=== PATIENT | female | born 1965 | race Caucasian/White ===

== ENCOUNTER 2021-05-01 17:54 | Inpatient (IN) | payer OTHER ==
[2021-05-01] MEDS ORDERED: NITROGLYCERIN SL TABS 0.4 MG TAB SUBLINGUAL PRN (18:07)
[2021-05-01] MEDS ORDERED: HEPARIN SODIUM 1,000 UN/ML (10ML VL) IV ONE (18:09)
[2021-05-01] MEDS ORDERED: HEPARIN SODIUM 1,000 UN/ML (10ML VL) IV PRN (18:09)
--- NOTE | 2021-05-01 18:09 | ED ---
General Adult HPI - General Chief complaint: Cardiac Arrest/CPR Stated complaint: unresponsive Time Seen by Provider: 05/01/21 18:07 Source: EMS Mode of arrival: EMS Limitations: altered mental status - History of Present Illness Initial comments: 55-year-old female presents status post cardiac arrest. Patient had approximately 60 minutes of out of Hospital care. His was a witnessed arrest by family with CPR started. EMS reports a total downtime of about 15 minutes with 2 rounds of epinephrine and 2 external defibrillation. He apparently does have history of pacemaker defibrillator and cardiac disease. No history is initially available other than this. She had return of spontaneous circulation was transported by EMS. She had a gag reflex and therefore nasal airway was placed and she received BVM. She measurable blood pressure. 300 mg of amiodarone had been given prior to arrival. - Related Data Allergies Allergy/AdvReac Type Severity Reaction Status Date / Time No Known Allergies Allergy Verified 05/01/21 18:14 Review of Systems ROS Statement: Those systems with pertinent positive or pertinent negative responses have been documented in the HPI. ROS Other: All systems not noted in ROS Statement are negative. Past Medical History Past Medical History: Atrial Fibrillation Additional Past Medical History / Comment(s): pacemaker, cardiac hx History of Any Multi-Drug Resistant Organisms: None Reported Past Surgical History: Pacemaker Past Psychological History: No Psychological Hx Reported General Exam Limitations: altered mental status General appearance: obtunded, in distress Head exam: Present: atraumatic, normocephalic Eye exam: Present: other (6 mm and sluggish bilaterally) ENT exam: Present: other (Nasal airway) Neck exam: Present: normal inspection. Absent: tenderness Respiratory exam: Present: respiratory distress, rales, accessory muscle use Cardiovascular Exam: Present: normal rhythm, tachycardia GI/Abdominal exam: Present: soft. Absent: distended, tenderness, guarding Extremities exam: Present: calf tenderness, other (Cyanosis.). Absent: pedal edema Neurological exam: Present: other (gag Reflex present, patient does withdrawal to pain in bilateral upper extremities) Skin exam: Present: cyanosis, diaphoretic Course Vital Signs 05/01/21 05/01/21 05/01/21 17:56 18:10 18:19 Pulse Rate 123 H 119 H Respiratory 32 H 14 Rate Blood Pressure 140/76 94/70 O2 Sat by Pulse 70 L 76 L 70 L Oximetry 05/01/21 05/01/21 05/01/21 18:34 18:55 19:19 Pulse Rate 113 H 131 H 135 H Respiratory 16 16 16 Rate Blood Pressure 101/78 150/114 142/112 O2 Sat by Pulse 93 L 97 98 Oximetry 05/01/21 19:40 Pulse Rate 134 H Respiratory 16 Rate Blood Pressure 140/112 O2 Sat by Pulse 98 Oximetry EKG Findings - EKG Comments: EKG Findings:: Paced rhythm rate of 120 CT interval 164, QRS duration 172, QTC 505. Repeat EKG, atrial sensed ventricular paced rhythm rate of 117 CT interval 178 respiration see 585. Procedures - Intubation Sedative: Versed Mg Given: 5 Paralytic: Rocuronium Mg Given: 50 Laryngoscope: Rachel Size: 3 ET Tube Size: 7.5 ET Tube Uncuffed: No Tube Secured Depth (cm): 21 Tube Secured Location: lips Tube Placement Confirmation: visualized tube passing through cords, equal breath sounds bilaterally, no breath sounds over epigastrium, confirmation by capnometry Patient Tolerated Procedure: well Intubation Complications: hypoxia Additional Comments: Patient was hypoxic upon arrival and remained hypoxic during the preintubation, despite high flow oxygen and BVM. Medical Decision Making - Medical Decision Making 55-year-old female presenting status post cardiac arrest. Witnessed out of Hospital last 2000. Patient did have return of spontaneous circulation after approximately 15 minutes of CPR. She received CPR with the adrian device. Upon arrival patient is intubated for hypoxemia patient is in paced rhythm she has a relatively normal blood pressure. I did initiate heparin with concern for pulmonary embolism. There was concern for pulmonary embolism. Negative for PE . She has a normal electrolytes and prolonged downtime with significantly elevated lactic acid. I did cover with antibiotics. Discuss case with Dr. Perez who recommended sodium bicarb drip. I discussed case with Dr. Helms from cardiology, recommends trending troponins, continuing heparin and amiodarone. - Lab Data Result diagrams: 05/01/21 18:15 05/01/21 18:15 Lab Results 05/01/21 05/01/21 05/01/21 Range/Units 18:05 18:10 18:15 WBC 13.7 H (3.8-10.6) k/uL RBC 4.93 (3.80-5.40) m/uL Hgb 14.9 (11.4-16.0) gm/dL Hct 49.0 H (34.0-46.0) % MCV 99.5 (80.0-100.0) fL MCH 30.3 (25.0-35.0) pg MCHC 30.4 L (31.0-37.0) g/dL RDW 12.6 (11.5-15.5) % Plt Count 250 (150-450) k/uL MPV 8.3 Neutrophils % (Manual) 48 % Band Neuts % (Manual) 1 % Lymphocytes % (Manual) 43 % Monocytes % (Manual) 5 % Eosinophils % (Manual) 1 % Metamyelocytes % 2 % Myelocytes % 3 % Neutrophils # (Manual) 6.70 (1.3-7.7) k/uL Lymphocytes # (Manual) 5.89 H (1.0-4.8) k/uL Monocytes # (Manual) 0.69 (0-1.0) k/uL Eosinophils # (Manual) 0.14 (0-0.7) k/uL Metamyelocytes # (Man) 0.27 H (0) k/uL Myelocytes # (Manual) 0.41 H (0) k/uL Nucleated RBCs 0 (0-0) /100 WBC Manual Slide Review Performed Hypochromasia Moderate PT (9.0-12.0) sec INR (<1.2) APTT (22.0-30.0) sec Sample Site ABG pH (7.35-7.45) ABG pCO2 (35-45) mmHg ABG pO2 (83-108) mmHg ABG HCO3 (21-25) mmol/L ABG Total CO2 (19-24) mmol/L ABG O2 Saturation (94-97) % ABG Base Excess mmol/L Neymar Test VBG pH 7.06 L* (7.31-7.41) VBG pCO2 42 (37-51) mmHg VBG HCO3 11 L (24-28) mmol/L FiO2 % Sodium (137-145) mmol/L Potassium (3.5-5.1) mmol/L Chloride (98-107) mmol/L Carbon Dioxide (22-30) mmol/L Anion Gap mmol/L BUN (7-17) mg/dL Creatinine (0.52-1.04) mg/dL Est GFR (CKD-EPI)AfAm (>60 ml/min/1.73 sqM) Est GFR (CKD-EPI)NonAf (>60 ml/min/1.73 sqM) Glucose (74-99) mg/dL POC Glucose (mg/dL) 296 H (75-99) mg/dL POC Glu Seasonal Sales Associate ID [place] Stinson Lactic Ac Sepsis Rflx Plasma Lactic Acid Kory (0.7-2.0) mmol/L Calcium (8.4-10.2) mg/dL Magnesium (1.6-2.3) mg/dL Total Bilirubin (0.2-1.3) mg/dL AST (14-36) U/L ALT (4-34) U/L Alkaline Phosphatase (38-126) U/L Troponin I (0.000-0.034) ng/mL Total Protein (6.3-8.2) g/dL Albumin (3.5-5.0) g/dL 05/01/21 05/01/21 05/01/21 Range/Units 18:15 18:15 18:15 WBC (3.8-10.6) k/uL RBC (3.80-5.40) m/uL Hgb (11.4-16.0) gm/dL Hct (34.0-46.0) % MCV (80.0-100.0) fL MCH (25.0-35.0) pg MCHC (31.0-37.0) g/dL RDW (11.5-15.5) % Plt Count (150-450) k/uL MPV Neutrophils % (Manual) % Band Neuts % (Manual) % Lymphocytes % (Manual) % Monocytes % (Manual) % Eosinophils % (Manual) % Metamyelocytes % % Myelocytes % % Neutrophils # (Manual) (1.3-7.7) k/uL Lymphocytes # (Manual) (1.0-4.8) k/uL Monocytes # (Manual) (0-1.0) k/uL Eosinophils # (Manual) (0-0.7) k/uL Metamyelocytes # (Man) (0) k/uL Myelocytes # (Manual) (0) k/uL Nucleated RBCs (0-0) /100 WBC Manual Slide Review Hypochromasia PT 12.6 H (9.0-12.0) sec INR 1.2 H (<1.2) APTT 31.8 H (22.0-30.0) sec Sample Site ABG pH (7.35-7.45) ABG pCO2 (35-45) mmHg ABG pO2 (83-108) mmHg ABG HCO3 (21-25) mmol/L ABG Total CO2 (19-24) mmol/L ABG O2 Saturation (94-97) % ABG Base Excess mmol/L Neymar Test VBG pH (7.31-7.41) VBG pCO2 (37-51) mmHg VBG HCO3 (24-28) mmol/L FiO2 % Sodium 138 (137-145) mmol/L Potassium 3.6 (3.5-5.1) mmol/L Chloride 106 (98-107) mmol/L Carbon Dioxide 11 L (22-30) mmol/L Anion Gap 21 mmol/L BUN 19 H (7-17) mg/dL Creatinine 0.77 (0.52-1.04) mg/dL Est GFR (CKD-EPI)AfAm >90 (>60 ml/min/1.73 sqM) Est GFR (CKD-EPI)NonAf 86 (>60 ml/min/1.73 sqM) Glucose 390 H (74-99) mg/dL POC Glucose (mg/dL) (75-99) mg/dL POC Glu Seasonal Sales Associate ID Lactic Ac Sepsis Rflx Plasma Lactic Acid Kory (0.7-2.0) mmol/L Calcium 9.4 (8.4-10.2) mg/dL Magnesium 2.6 H (1.6-2.3) mg/dL Total Bilirubin 0.7 (0.2-1.3) mg/dL AST 95 H (14-36) U/L ALT 53 H (4-34) U/L Alkaline Phosphatase 130 H (38-126) U/L Troponin I 0.038 H* (0.000-0.034) ng/mL Total Protein 6.6 (6.3-8.2) g/dL Albumin 4.0 (3.5-5.0) g/dL 05/01/21 05/01/21 05/01/21 Range/Units 18:15 18:33 19:33 WBC (3.8-10.6) k/uL RBC (3.80-5.40) m/uL Hgb (11.4-16.0) gm/dL Hct (34.0-46.0) % MCV (80.0-100.0) fL MCH (25.0-35.0) pg MCHC (31.0-37.0) g/dL RDW (11.5-15.5) % Plt Count (150-450) k/uL MPV Neutrophils % (Manual) % Band Neuts % (Manual) % Lymphocytes % (Manual) % Monocytes % (Manual) % Eosinophils % (Manual) % Metamyelocytes % % Myelocytes % % Neutrophils # (Manual) (1.3-7.7) k/uL Lymphocytes # (Manual) (1.0-4.8) k/uL Monocytes # (Manual) (0-1.0) k/uL Eosinophils # (Manual) (0-0.7) k/uL Metamyelocytes # (Man) (0) k/uL Myelocytes # (Manual) (0) k/uL Nucleated RBCs (0-0) /100 WBC Manual Slide Review Hypochromasia PT (9.0-12.0) sec INR (<1.2) APTT (22.0-30.0) sec Sample Site RAD ABG pH 7.16 L* (7.35-7.45) ABG pCO2 49 H (35-45) mmHg ABG pO2 87 (83-108) mmHg ABG HCO3 17 L (21-25) mmol/L ABG Total CO2 19 (19-24) mmol/L ABG O2 Saturation 93.2 L (94-97) % ABG Base Excess -11.3 mmol/L Neymar Test Yes VBG pH (7.31-7.41) VBG pCO2 (37-51) mmHg VBG HCO3 (24-28) mmol/L FiO2 100 % Sodium (137-145) mmol/L Potassium (3.5-5.1) mmol/L Chloride (98-107) mmol/L Carbon Dioxide (22-30) mmol/L Anion Gap mmol/L BUN (7-17) mg/dL Creatinine (0.52-1.04) mg/dL Est GFR (CKD-EPI)AfAm (>60 ml/min/1.73 sqM) Est GFR (CKD-EPI)NonAf (>60 ml/min/1.73 sqM) Glucose (74-99) mg/dL POC Glucose (mg/dL) (75-99) mg/dL POC Glu Seasonal Sales Associate ID Lactic Ac Sepsis Rflx Y Plasma Lactic Acid Kory 9.9 H* (0.7-2.0) mmol/L Calcium (8.4-10.2) mg/dL Magnesium (1.6-2.3) mg/dL Total Bilirubin (0.2-1.3) mg/dL AST (14-36) U/L ALT (4-34) U/L Alkaline Phosphatase (38-126) U/L Troponin I (0.000-0.034) ng/mL Total Protein (6.3-8.2) g/dL Albumin (3.5-5.0) g/dL Critical Care Time Critical Care Time: Yes Total Critical Care Time: 35 Disposition Clinical Impression: Cardiac arrest Disposition: ADMITTED IP TO THIS [facility] Condition: Serious Is patient prescribed a controlled substance at d/c from ED?: No Decision to Admit Reason: Admit from EC Decision Date: 05/01/21 Decision Time: 19:49
[2021-05-01] MEDS ORDERED: HEPARIN SOD,PORK IN 0.45% NACL 25,000 UNIT in 0.45% NACL 1 250ML.BAG IV SCH (18:15)
[2021-05-01 18:19] LABS: VBG PH 7.06 (7.31-7.41)
[2021-05-01 18:20] LABS: HGB 14.9 gm/dL (11.4-16.0); Hypochromasia Moderate; MCH 30.3 pg (25.0-35.0); MCHC 30.4 g/dL (31.0-37.0); MCV 99.5 fL (80.0-100.0); Mean Platelet Volume 8.3; Platelet Count 250 k/uL (150-450); RBC 4.93 m/uL (3.80-5.40); RDW 12.6 % (11.5-15.5); WBC 13.7 k/uL (3.8-10.6)
[2021-05-01 18:25] LABS: Glucose,Whole Blood 296 mg/dL (75-99)
--- NOTE | 2021-05-01 18:27 | XR ---
EXAMINATION TYPE: XR chest 1V portable DATE OF EXAM: 05/01/2021 COMPARISON: None HISTORY: Respiratory failure TECHNIQUE: Single view FINDINGS: There is pulmonary edema. This is seen in the upper and mid lung levin. Endotracheal tube is 9 mm from the tha. There is left axillary pacemaker. Costophrenic angles are clear. IMPRESSION: Moderate upper lobe pulmonary edema. Endotracheal tube is low.
[2021-05-01 18:28] LABS: AST 95 U/L (14-36); African American GFR (CKD) >90 (>60 ml/min/1.73 sqM); Alkaline Phosphatase 130 U/L (38-126); Anion Gap 21 mmol/L; Blood Urea Nitrogen 19 mg/dL (7-17); Calcium 9.4 mg/dL (8.4-10.2); Carbon Dioxide 11 mmol/L (22-30); Chloride 106 mmol/L (98-107); Glucose 390 mg/dL (74-99); Magnesium 2.6 mg/dL (1.6-2.3); Non-African American GFR(CKD) 86 (>60 ml/min/1.73 sqM); Potassium 3.6 mmol/L (3.5-5.1); Sodium 138 mmol/L (137-145); Total Bilirubin 0.7 mg/dL (0.2-1.3); Total Protein 6.6 g/dL (6.3-8.2)
[2021-05-01] MEDS ORDERED: AMIODARONE 360 MG in DEXTROSE 5% IN WATER 200 ML IV ONE ×2 (18:30)
[2021-05-01 18:35] LABS: ALT 53 U/L (4-34)
[2021-05-01 18:39] LABS: INR 1.2 (<1.2); Partial Thromboplastin Time 31.8 sec (22.0-30.0); Prothrombin Time 12.6 sec (9.0-12.0)
[2021-05-01 19:16] LABS: Band Neutrophils % 1 %; Eosinophils # (M) 0.14 k/uL (0-0.7); Lymphocytes # (M) 5.89 k/uL (1.0-4.8); Metamyelocytes # (M) 0.27 k/uL (0); Metamyelocytes % 2 %; Monocytes # (M) 0.69 k/uL (0-1.0); Myelocytes # (M) 0.41 k/uL (0); Myelocytes % 3 %; Neutrophils % (M) 48 %; Nucleated Red Blood Cells 0 /100 WBC (0-0); Total Cells Counted 200
[2021-05-01] MEDS ORDERED: NALOXONE 0.4 MG/ML 1 ML VIAL IV PRN (19:36)
[2021-05-01] MEDS ORDERED: ACETAMINOPHEN SUPPOSITORY 650 MG SUPP RECTAL PRN (19:36)
[2021-05-01 19:37] LABS: ABG Base Excess -11.3 mmol/L; ABG HCO3 17 mmol/L (21-25); ABG PCO2 49 mmHg (35-45); ABG PO2 87 mmHg (83-108); ABG TCO2 19 mmol/L (19-24); Allen Test Performed? Yes
--- NOTE | 2021-05-01 19:37 | CT ---
EXAMINATION TYPE: CT angio chest DATE OF EXAM: 05/01/2021 COMPARISON: None HISTORY: cardiac arrest CT DLP: 506.9 mGycm Automated exposure control for dose reduction was used. CONTRAST: Performed with IV Contrast, patient injected with 100 mL of Isovue 300. There are 3-D post processed images. There is endotracheal tube. There is diffuse pulmonary airspace edema. There is some consolidation an d atelectasis at the posterior lung bases. Heart is enlarged. There is no pericardial effusion. There is nasogastric tube with the tip at the gastroesophageal junction. There is normal contrast opacification of the pulmonary arteries. I see no filling defect. There is n o mediastinal adenopathy. There are no hilar masses. Bony thorax is intact. IMPRESSION: No evidence of pulmonary embolism. Extensive pulmonary infiltrates that could relate to RDS.
[2021-05-01] MEDS ORDERED: cefTRIAXone IN SWFI 1,000 MG/10 ML SYRINGE IVP STA (19:38)
[2021-05-01 19:54] LABS: ABG Oxygen Saturation 93.2 % (94-97); ABG PH 7.16 (7.35-7.45)
[2021-05-01] MEDS: DEXTROSE 5% IN WATER 1,000 ML with SODIUM BICARB (1 MEQ/ML) 150 ML IV SCH (20:20)
[2021-05-01] MEDS ORDERED: MIDAZOLAM 1 MG/ML 5 ML VIAL IV STA (21:28)
[2021-05-01] MEDS ORDERED: MIDAZOLAM 2 MG/2 ML VIAL IVP STA (21:48)
[2021-05-01 22:08] LABS: Glucose,Whole Blood 203 mg/dL (75-99)
[2021-05-01] MEDS ORDERED: SODIUM CHLORIDE 0.9% 1,000 ML IV ONE (22:40)
[2021-05-01] MEDS: AMIODARONE 450 MG in DEXTROSE 5% IN WATER 250 ML IV SCH ×2 (23:52)
[2021-05-02] MEDS: NOREPINEPHRINE 4 MG in SODIUM CHLORIDE 0.9% 250 ML IV SCH ×4 (00:10→17:05)
[2021-05-02 05:28] LABS: ABG Base Excess -7.4 mmol/L; ABG HCO3 18 mmol/L (21-25); ABG PCO2 32 mmHg (35-45); ABG PH 7.36 (7.35-7.45); ABG PO2 338 mmHg (83-108); ABG TCO2 19 mmol/L (19-24); Allen Test Performed? Yes
[2021-05-02 05:31] LABS: ABG Oxygen Saturation 98.5 % (94-97)
[2021-05-02 07:25] LABS: Basophils # (A) 0.1 k/uL (0-0.2); Basophils % (A) 0 %; Eosinophils # (A) 0.1 k/uL (0-0.7); Eosinophils % (A) 0 %; HCT 46.1 % (34.0-46.0); HGB 14.6 gm/dL (11.4-16.0); Lymphocytes # (A) 1.1 k/uL (1.0-4.8); Lymphocytes % (A) 3 %; MCH 30.3 pg (25.0-35.0); MCHC 31.6 g/dL (31.0-37.0); MCV 95.9 fL (80.0-100.0); Mean Platelet Volume 8.5; Monocytes # (A) 1.6 k/uL (0-1.0); Monocytes % (A) 4 %; Neutrophils # (A) 32.7 k/uL (1.3-7.7); Neutrophils % (A) 91 %; Platelet Count 333 k/uL (150-450); RBC 4.81 m/uL (3.80-5.40); RDW 12.9 % (11.5-15.5); WBC 35.8 k/uL (3.8-10.6)
[2021-05-02 07:39] LABS: Albumin 4.4 g/dL (3.5-5.0); Calcium 9.4 mg/dL (8.4-10.2); Phosphorus 3.7 mg/dL (2.5-4.5); Potassium 4.5 mmol/L (3.5-5.1); Total Bilirubin 1.1 mg/dL (0.2-1.3); Total Protein 7.2 g/dL (6.3-8.2)
--- NOTE | 2021-05-02 08:23 | XR ---
EXAMINATION TYPE: XR chest 1V portable DATE OF EXAM: 05/02/2021 Comparison: 05/01/2021 Clinical History: 55-year-old female pulm edema Findings: Left anterior chest wall AICD generator with right atrial, right ventricular, and coronary sinus lead s. ET tube is satisfactory. NG tube courses below the diaphragm. Marked interval improvement in the p atient's previous bilateral pulmonary edema. Interstitial densities and patchy retrocardiac opacity r emains. No sizable effusion. Heart upper limits of normal in size. Impression: Significant interval improvement in patient's pulmonary edema. Pulmonary vascular congestion remains along with patchy retrocardiac opacity.
[2021-05-02] MEDS ORDERED: CHLORHEXIDINE GLUCONATE 15 ML CUP MUCOUS MEM SCH (09:00)
[2021-05-02 09:13] LABS: Glucose,Whole Blood 183 mg/dL (75-99)
[2021-05-02] MEDS: INSULIN ASPART (NovoLOG) 100 UNIT/ML VIAL SQ SCH ×4 (09:14→21:42)
[2021-05-02] MEDS: PANTOPRAZOLE 40 MG/10 ML VIAL IV SCH (09:14)
[2021-05-02 09:36] LABS: Amorphous Sediment,Urine Occasional /hpf; Appearance,Urine Cloudy (Clear); Bacteria,Urine Occasional /hpf; Bilirubin,Urine Negative (Negative); Blood,Urine Moderate (Negative); Color,Urine Yellow; Glucose,Urine (UA) 1+ (Negative); Hyaline Casts,Urine 11 /lpf (0-2); Ketones,Urine Negative (Negative); Leukocyte Esterase,Urine Negative (Negative); Mucus,Urine Few /hpf; Nitrite,Urine Negative (Negative); PH, Urine 5.5 (5.0-8.0); Protein,Urine 1+ (Negative); RBC,Urine 46 /hpf (0-5); Squamous Epithelial Cell,Urine 2 /hpf (0-4); Urobilinogen,Urine <2.0 mg/dL (<2.0); WBC,Urine 6 /hpf (0-5)
[2021-05-02 09:58] LABS: Specific Gravity,Urine 1.046 (1.001-1.035)
[2021-05-02] MEDS: HEPARIN SOD,PORK IN 0.45% NACL 25,000 UNIT in 0.45% NACL 1 250ML.BAG IV SCH (10:29)
--- NOTE | 2021-05-02 11:17 | P.CRDCN ---
History of Present Illness History of present illness: HISTORY OF PRESENTING ILLNESS This is a 55 year old female who presented to the hospital via EMS after a witness arrest. CPR was initiated immediately by family. Downtime was 15 minutes with 2 rounds of epineprhine and 2 external defibrillations. According to EMS documentation she was in vfib. She received 300 mg of amiodarone pre-hospital. She was intubated in ER. She is currently maintained on amiodarone infusion and heparin infusion. She was extubated this morning in ICU. Currently maintaining oxygen saturation on nasal cannula. Blood pressure 119/86 heart rate 87. She is complaining of pain in her sternum with any movement. She is still somewhat lethargic and not giving any meaningful history. Her daughter did call and states that her EF is somewhere between 18-25% since 2012. At that time she had a defibrillator placed ([employer]). She follows with a cathode washer at [facility]. DIAGNOSTICS EKG reveals underlying right bundle branch block and ventricular paced. Telemetry tracings indicate paced rhythm. Chest xray on admission revealed moderate upper lobe pulmonary edema, repeat today with interval improvement with some ongoing pulmonary congestion. CTA negative for PE. Laboratory reviewed, WBC 35.8, hemoglobin 14.6, platelets 333, pH 7.36, pCO2 32, pO2 338 and bicarb 13, sodium 140, potassium 4.5, creatinine 0.88, lactic acid on admission 9.9 repeat this morning 4.2, troponin 0.038 and 0.279. Current cardiac medications include Bumex 2 mg and entresto 24/26 mg twice a day. REVIEW OF SYSTEMS At the time of my exam: Unable to obtain accurate review of systems due to altered mental status PHYSICAL EXAMINATION CONSTITUTIONAL: No apparent distress. HEENT: Head is normocephalic. Pupils are equal, round. Sclerae anicteric. Mucous membranes of the mouth are moist. No JVD. No carotid bruit. CHEST EXAMINATION: Lungs are clear to auscultation. Positive chest wall tenderness is noted on palpation or with deep breathing. Diminished bilaterally. HEART EXAMINATION: Regular rate and rhythm. S1, S2 heard. No murmurs, gallops or rub. ABDOMEN: Soft, nontender. Positive bowel sounds. EXTREMITIES: 2+ peripheral pulses, trace lower extremity edema and no calf tenderness. NEUROLOGIC EXAMINATION: Patient is awake and confused. ASSESSMENT Cardiac arrest Hypoxic respiratory failure Leukocytosis Chronic systolic heart failure Possible v-fib arrest PLAN Interrogate defibrillator. Request records from [facility]. Continue PO amiodarone tonight after infusion complete. Continue heparin infusion for now until we can discern the cause of her cardiac arrest. Entresto on hold due to hypotension, on levophed. Echocardiogram has been obtained and will be reviewed. Further recommendations to follow based on clinical course. Thank you kindly for this consultation. Nurse Practitioner note has been reviewed, I agree with a documented findings and plan of care. Patient was seen and examined. Past Medical History Past Medical History: Atrial Fibrillation Additional Past Medical History / Comment(s): pacemaker, cardiac hx Last Myocardial Infarction Date:: 2012 History of Any Multi-Drug Resistant Organisms: None Reported Past Surgical History: Pacemaker Additional Past Surgical History / Comment(s): 2019 Replaced pacemaker Type of Cardiac Device: Permanent Pacemaker Device Placement Date:: n/a Past Psychological History: No Psychological Hx Reported Medications and Allergies Home Medications Medication Instructions Recorded Confirmed Type Bumetanide [BUMEX] 2 mg PO DAILY PRN 05/01/21 05/02/21 History Omeprazole 40 mg PO BID 05/01/21 05/01/21 History Potassium Chloride [Klor-Con 10] 100 meq PO DAILY 05/01/21 05/01/21 History Sacubitril/Valsartan [Entresto 24 1 tab PO BID 05/01/21 05/01/21 History mg-26 mg Tablet] Allergies Allergy/AdvReac Type Severity Reaction Status Date / Time Beta-Blockers Allergy Unknown Verified 05/01/21 21:17 (Beta-Adrenergic Bloc Physical Exam Vitals: Vital Signs Temp Pulse Resp BP BP Pulse Ox 05/02/21 09:30 87 36 H 119/86 93 L 05/02/21 09:15 93 21 106/75 98 05/02/21 09:00 91 26 H 110/78 98 05/02/21 08:45 86 18 95/70 98 05/02/21 08:30 82 18 96/67 99 05/02/21 08:15 83 18 106/75 100 05/02/21 08:00 99.7 F H 93 18 121/77 97 05/02/21 07:45 92 24 96 05/02/21 07:30 86 18 98 05/02/21 07:15 82 24 113/76 96 05/02/21 07:00 83 23 113/80 94 L 05/02/21 06:00 75 18 112/79 97 05/02/21 05:00 75 19 102/70 98 05/02/21 04:00 99.7 F H 76 19 82/56 97 05/02/21 03:00 75 18 94/65 98 05/02/21 02:00 80 27 H 108/71 98 05/02/21 01:00 80 18 89/60 92 L 05/02/21 00:23 74/55 05/02/21 00:00 97.4 F L 84 18 57/37 96 05/01/21 23:38 90 18 89/60 98 05/01/21 23:00 96.5 F L 90 19 81/63 98 05/01/21 22:08 96 16 05/01/21 21:53 99 27 H 100/75 97 05/01/21 21:40 96 16 85/60 94 L 05/01/21 21:20 101.1 F H 05/01/21 21:00 108 H 23 64/52 96 05/01/21 20:30 114 H 20 72/49 87 L 05/01/21 20:00 115 H 24 99/83 87 L 05/01/21 19:59 96.5 F L 95 05/01/21 19:40 134 H 16 140/112 98 05/01/21 19:19 135 H 16 142/112 98 05/01/21 18:55 131 H 16 150/114 97 05/01/21 18:34 113 H 16 101/78 93 L 05/01/21 18:19 119 H 14 94/70 70 L 05/01/21 18:10 76 L 05/01/21 17:56 123 H 32 H 140/76 70 L Intake and Output 05/01/21 05/02/21 05/02/21 22:59 06:59 14:59 Intake Total 7.313 281.156 734.373 Output Total 400 320 137 Balance -392.687 -38.844 597.373 Intake: Intake, IV Titration 7.313 281.156 734.373 Amount Dextrose 5% in Water 1, 100 000 ml @ 50 mls/hr IV . Q23H RAUL with Sodium Bicarb (1 Meq/ml) 150 ml Rx#:[id number] Heparin Sod,Pork in 0.45% 188.981 NaCl 25,000 unit In 0.45 % NaCl 1 250ml.bag @ 18 UNITS/KG/HR 12.655 mls/hr IV .[id number] RAUL Rx#: [id number] Norepinephrine 4 mg In 254.000 376.516 Sodium Chloride 0.9% 250 ml @ 0.05 MCG/KG/MIN 13. 907 mls/hr IV .[id number] RAUL Rx#:[id number] propofoL 1,000 mg In 7.313 27.156 68.876 Empty Bag 1 bag @ Titrate IV .Q0M RAUL Rx#: [id number] Oral 0 Output: Gastric Drainage 300 Urine 320 137 Other 100 Other: Voiding Method Indwelling Catheter Indwelling Catheter Weight 73 kg 73 kg Results 05/02/21 07:00 05/02/21 07:00 Cardiac Enzymes 05/01/21 05/01/21 05/02/21 Range/Units 18:15 18: 07:00 AST 95 H 103 H (14-36) U/L Troponin I 0.038 H* (0.000-0.034) ng/mL 05/02/21 Range/Units 07:00 AST (14-36) U/L Troponin I 0.279 H* (0.000-0.034) ng/mL Coagulation 05/01/21 05/02/21 Range/Units 18:15 07:00 PT 12.6 H (9.0-12.0) sec APTT 31.8 H 104.3 H* (22.0-30.0) sec CBC 05/01/21 05/02/21 Range/Units 18:15 07:00 WBC 13.7 H 35.8 H (3.8-10.6) k/uL RBC 4.93 4.81 (3.80-5.40) m/uL Hgb 14.9 14.6 (11.4-16.0) gm/dL Hct 49.0 H 46.1 H (34.0-46.0) % Plt Count 250 333 (150-450) k/uL Comprehensive Metabolic Panel 05/01/21 05/02/21 Range/Units 18:15 07:00 Sodium 138 140 (137-145) mmol/L Potassium 3.6 4.5 (3.5-5.1) mmol/L Chloride 106 109 H (98-107) mmol/L Carbon Dioxide 11 L 17 L (22-30) mmol/L BUN 19 H 27 H (7-17) mg/dL Creatinine 0.77 0.88 (0.52-1.04) mg/dL Glucose 390 H 233 H (74-99) mg/dL Calcium 9.4 9.4 (8.4-10.2) mg/dL AST 95 H 103 H (14-36) U/L ALT 53 H 59 H (4-34) U/L Alkaline Phosphatase 130 H 124 (38-126) U/L Total Protein 6.6 7.2 (6.3-8.2) g/dL Albumin 4.0 4.4 (3.5-5.0) g/dL Current Medications Generic Name Dose Route Start Last Admin Trade Name Freq PRN Reason Stop Dose Admin Acetaminophen 650 mg 05/01/21 19:36 Acetaminophen Suppository 650 Mg Supp RECTAL Q4HR PRN Fever And/ Or Mild Pain Chlorhexidine Gluconate 15 ml 05/02/21 09:00 05/02/21 08:31 Chlorhexidine Gluconate 15 Ml Cup MUCOUS MEM 15 ml BID RAUL Administration Heparin Sodium (Porcine) 0 unit 05/01/21 18:09 Heparin Sodium 1,000 Un/Ml (10ml Vl) IV PER PROTOCOL PRN Low PTT Protocol Amiodarone HCl 450 mg/ 250 mls @ 16.667 mls/hr 05/02/21 00:30 05/01/21 23:52 Dextrose/Water IV 05/02/21 18:29 0.5 mg/min .Q15H RAUL 16.667 mls/hr Administration Protocol 0.5 MG/MIN Heparin Sodium/Sodium Chloride 250 mls @ 12.655 mls/hr 05/01/21 18:15 05/02/21 09:14 25,000 unit/ Sodium Chloride IV 0 units/kg/hr .[id number] RAUL 0 mls/hr Titration Protocol 18 UNITS/KG/HR Sodium Bicarbonate 150 ml/ 1,150 mls @ 50 mls/hr 05/01/21 19:30 05/01/21 20:20 Dextrose/Water IV 50 mls/hr .Q23H RAUL Administration Propofol 1,000 mg/ IV Solution 100 mls @ 0 mls/hr 05/01/21 19:45 05/02/21 08:47 IV 0 mcg/kg/min .Q0M RAUL 0 mls/hr Titration Protocol Titrate Norepinephrine Bitartrate 4 mg 254 mls @ 13.907 mls/hr 05/02/21 00:00 05/02/21 09:19 / Sodium Chloride IV 0.2 mcg/kg/min .[id number] RAUL 55.626 mls/hr Titration Protocol 0.05 MCG/KG/MIN Insulin Aspart 0 unit 05/02/21 09:00 05/02/21 09:14 Insulin Aspart (Novolog) 100 Unit/Ml Vial SQ 2 unit Q4H RAUL Administration Protocol Naloxone HCl 0.2 mg 05/01/21 19:36 Naloxone 0.4 Mg/Ml 1 Ml Vial IV Q2M PRN Opioid Reversal Nitroglycerin 0.4 mg 05/01/21 18:07 Nitroglycerin Sl Tabs 0.4 Mg Tab SUBLINGUAL Q5M PRN Chest Pain Pantoprazole Sodium 40 mg 05/02/21 09:00 05/02/21 09:14 Pantoprazole 40 Mg/10 Ml Vial IV 40 mg DAILY RAUL Administration Intake and Output 05/01/21 05/02/21 05/02/21 22:59 06:59 14:59 Intake Total 7.313 281.156 734.373 Output Total 400 320 137 Balance -392.687 -38.844 597.373 Intake: Intake, IV Titration 7.313 281.156 734.373 Amount Dextrose 5% in Water 1, 100 000 ml @ 50 mls/hr IV . Q23H RAUL with Sodium Bicarb (1 Meq/ml) 150 ml Rx#:[id number] Heparin Sod,Pork in 0.45% 188.981 NaCl 25,000 unit In 0.45 % NaCl 1 250ml.bag @ 18 UNITS/KG/HR 12.655 mls/hr IV .[id number] RAUL Rx#: [id number] Norepinephrine 4 mg In 254.000 376.516 Sodium Chloride 0.9% 250 ml @ 0.05 MCG/KG/MIN 13. 907 mls/hr IV .[id number] RAUL Rx#:[id number] propofoL 1,000 mg In 7.313 27.156 68.876 Empty Bag 1 bag @ Titrate IV .Q0M [facility] Rx#: [id number] Oral 0 Output: Gastric Drainage 300 Urine 320 137 Other 100 Other: Voiding Method Indwelling Catheter Indwelling Catheter Weight 73 kg 73 kg 05/02/21 07:00 05/02/21 07:00
[2021-05-02] MEDS: ONDANSETRON 4 MG/2 ML VIAL IVP PRN ×2 (11:21→17:03)
--- NOTE | 2021-05-02 11:34 | ECHOF ---
Referral Reason:assess LV function; post status arrest MEASUREMENTS -------- HEIGHT: 160.0 cm WEIGHT: 72.6 kg BP: IVSd: 1.0 cm (0.6 - 1.1) LVIDd: 5.6 cm (3.9 - 5.3) LVPWd: 1.3 cm (0.6 - 1.1) IVSs: 1.3 cm LVIDs: 5.4 cm LVPWs: 1.5 cm MV E Yousif: 0.27 m/s MV DecT: 156 ms MV A Yousif: 0.55 m/s MV E/A Ratio: 0.50 RAP: 5.00 mmHg RVSP: 31.41 mmHg FINDINGS -------- Sinus rhythm. AICD This was a technically adequate study. The left ventricle is mildly dilated. There is mild concentric left ventricular hypertrophy. Ther e is severe global hypokinesis of LV . Overall left ventricular systolic function is severely impai red with, an EF between 20 - 25 %. The right ventricle is normal in size. The left atrial size is normal. The right atrial size is normal. The aortic valve is trileaflet, and appears structurally normal. No aortic stenosis or regurgitation. The mitral valve is normal. Mild mitral regurgitation is present. The tricuspid valve appears structurally normal. Mild tricuspid regurgitation present. Right vent ricular systolic pressure is normal at < 35 mmHg. The pulmonic valve was not well visualized. There is no pulmonic regurgitation present. The aortic root size is normal. There is no pericardial effusion. CONCLUSIONS -------- 1. AICD 2. The left ventricle is mildly dilated. 3. There is mild concentric left ventricular hypertrophy. 4. There is severe global hypokinesis of LV . 5. Overall left ventricular systolic function is severely impaired with, an EF between 20 - 25 %. 6. The aortic valve is trileaflet, and appears structurally normal. No aortic stenosis or regurgitati on. 7. Mild mitral regurgitation is present. 8. Mild tricuspid regurgitation present. 9. There is no pericardial effusion. 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
--- NOTE | 2021-05-02 11:58 | P.CNPUL ---
History of Present Illness Consult date: 05/02/21 Requesting physician: Sebas E Sheet Reason for consult: other (Acute hypoxic respiratory failure and cardiac arrest) Chief complaint: Cardiac arrest History of present illness: This is a 55-year-old female brought in yesterday by EMS, patient is known to have history of chronic atrial fibrillation, cardiomyopathy, AICD placement, history of pacemaker implantation, patient had a witnessed cardiac arrest by family members, CPR was initiated by family, until EMS arrived, she received 2 rounds of epinephrine and 2 external defibrillations. Apparently the patient was in ventricular fibrillation at the time of EMS arrival. She also received 300 mg of amiodarone and she was brought into the ER where in she was immediately intubated upon arrival. Patient was maintained on amiodarone, and s he was also placed on heparin. Patient was kept on mechanical ventilation overnight, and I was asked to see her on consultation. I evaluated the patient this morning, and she remains on mechanical ventilation, assist control rate was 18 tidal volume 500 FiO2 was down to 50%, PEEP was 15. and her ABG showed a pO2 of 338 pCO2 of 32 pH of 7.36. Chest x-ray showed significant improvement compared to last night x-ray, significant improvement in her pulmonary edema is noted. Patient was also noted to be on norepinephrine at 0.2 mcg/kg/m, she is off propofol, remains on heparin and amiodarone during my evaluation. After reviewing the ABG, chest x-ray, and the ventilator settings, I titrated her FiO2 down to 50%, PEEP down to 6, and shortly after went ahead and changed the patient to pressure support mode of mechanical ventilation, with rushes support of 8 and CPAP. Patient seemed to be tolerating this mode of ventilation well, she had decent tidal volumes in the range of 600+, and her rate was in the range of 18. Patient was awake, following all simple instructions, getting extremely agitated with the endotracheal tube and orogastric tube, hence after a short trial of pressure support and CPAP, went ahead and extubated the patient to a nasal cannula. Patient tolerated the extubation quite well while I was at bedside. WBC count this morning is 35.8 hemoglobin is 14.6. PTT is 104, on heparin as per protocol. Electrolytes are normal bicarb is 17 BUN is 27 creatinine 0.88, troponin 0.279. Chest x-ray showed significant interval improvement in patient's pulmonary edema compared to her initial chest x-ray on admission. Review of Systems ROS unobtainable: due to endotracheal tube Past Medical History Past Medical History: Atrial Fibrillation Additional Past Medical History / Comment(s): pacemaker, cardiac hx Last Myocardial Infarction Date:: 2012 History of Any Multi-Drug Resistant Organisms: None Reported Past Surgical History: Pacemaker Additional Past Surgical History / Comment(s): 2019 Replaced pacemaker Type of Cardiac Device: Permanent Pacemaker Device Placement Date:: n/a Past Psychological History: No Psychological Hx Reported Medications and Allergies Home Medications Medication Instructions Recorded Confirmed Type Bumetanide [BUMEX] 2 mg PO DAILY PRN 05/01/21 05/02/21 History Omeprazole 40 mg PO BID 05/01/21 05/01/21 History Potassium Chloride [Klor-Con 10] 100 meq PO DAILY 05/01/21 05/01/21 History Sacubitril/Valsartan [Entresto 24 1 tab PO BID 05/01/21 05/01/21 History mg-26 mg Tablet] Allergies Allergy/AdvReac Type Severity Reaction Status Date / Time Beta-Blockers Allergy Unknown Verified 05/01/21 21:17 (Beta-Adrenergic Bloc Physical Exam Vitals: Vital Signs Temp Pulse Resp BP BP Pulse Ox 05/02/21 11:30 86 34 H 118/68 94 L 05/02/21 11:15 85 35 H 110/69 96 05/02/21 11:00 80 32 H 111/74 95 05/02/21 10:45 80 33 H 104/74 93 L 05/02/21 10:30 82 36 H 115/77 94 L 05/02/21 10:15 83 33 H 115/77 95 05/02/21 10:00 83 27 H 115/78 94 L 05/02/21 09:45 84 27 H 110/73 92 L 05/02/21 09:30 87 36 H 119/86 93 L 05/02/21 09:15 93 21 106/75 98 05/02/21 09:00 91 26 H 110/78 98 05/02/21 08:45 86 18 95/70 98 05/02/21 08:30 82 18 96/67 99 05/02/21 08:15 83 18 106/75 100 05/02/21 08:00 99.7 F H 93 18 121/77 97 05/02/21 07:45 92 24 96 05/02/21 07:30 86 18 98 05/02/21 07:15 82 24 113/76 96 05/02/21 07:00 83 23 113/80 94 L 05/02/21 06:00 75 18 112/79 97 05/02/21 05:00 75 19 102/70 98 05/02/21 04:00 99.7 F H 76 19 82/56 97 05/02/21 03:00 75 18 94/65 98 05/02/21 02:00 80 27 H 108/71 98 05/02/21 01:00 80 18 89/60 92 L 05/02/21 00:23 74/55 05/02/21 00:00 97.4 F L 84 18 57/37 96 05/01/21 23:38 90 18 89/60 98 05/01/21 23:00 96.5 F L 90 19 81/63 98 05/01/21 22:08 96 16 05/01/21 21:53 99 27 H 100/75 97 05/01/21 21:40 96 16 85/60 94 L 05/01/21 21:20 101.1 F H 05/01/21 21:00 108 H 23 64/52 96 05/01/21 20:30 114 H 20 72/49 87 L 05/01/21 20:00 115 H 24 99/83 87 L 05/01/21 19:59 96.5 F L 95 05/01/21 19:40 134 H 16 140/112 98 05/01/21 19:19 135 H 16 142/112 98 05/01/21 18:55 131 H 16 150/114 97 05/01/21 18:34 113 H 16 101/78 93 L 05/01/21 18:19 119 H 14 94/70 70 L 05/01/21 18:10 76 L 05/01/21 17:56 123 H 32 H 140/76 70 L Intake and Output 05/01/21 05/02/21 05/02/21 22:59 06:59 14:59 Intake Total 7.313 281.156 925.842 Output Total 400 320 287 Balance -392.687 -38.844 638.842 Intake: Intake, IV Titration 7.313 281.156 925.842 Amount Dextrose 5% in Water 1, 200 000 ml @ 50 mls/hr IV . Q23H RAUL with Sodium Bicarb (1 Meq/ml) 150 ml Rx#:[id number] Heparin Sod,Pork in 0.45% 2.19 NaCl 25,000 unit In 0.45 % NaCl 1 250ml.bag @ 12 UNITS/KG/HR 8.76 mls/hr IV .Q24H RAUL Rx#: [id number] Heparin Sod,Pork in 0.45% 188.981 NaCl 25,000 unit In 0.45 % NaCl 1 250ml.bag @ 18 UNITS/KG/HR 12.655 mls/hr IV .[id number] RAUL Rx#: [id number] Norepinephrine 4 mg In 254.000 465.795 Sodium Chloride 0.9% 250 ml @ 0.05 MCG/KG/MIN 13. 907 mls/hr IV .[id number] RAUL Rx#:[id number] propofoL 1,000 mg In 7.313 27.156 68.876 Empty Bag 1 bag @ Titrate IV .Q0M [facility] [place] Rx#: [id number] Oral 0 Output: Gastric Drainage 300 Urine 320 287 Other 100 Other: Voiding Method Indwelling Catheter Indwelling Catheter Weight 73 kg 73 kg 73 kg Physical Exam: Revealed a 55-year-old female in no distress, intubated and mechanically ventilated, seems to be quite agitated with the endotracheal tube and orogastric tube. Head: Atraumatic, normocephalic. HEENT:[Neck is supple.] [No neck masses.] [No thyromegaly.] [No JVD.] Moist mucous membranes. Chest: [Symmetrical chest expansion, diminished breath sounds at the bases no crackles or rhonchi or wheezes.] Cardiac Exam: [Normal S1 and S2, no S3 gallop, no murmur.] Abdomen: [Soft, nontender, no megaly, no rebound, no guarding, normal bowel sounds.] Extremities: [No clubbing, trace of bipedal edema, no cyanosis.] Neurological Exam: [No focal neurologic deficit.] Alert and oriented 3, follows all simple instructions. Musculoskeletal: No deformities noted limitation range of motion. Psychiatric: Normal mood, affect, seems to comprehend all questions and follows instructions. Results - Laboratory Findings CBC and BMP: 08/04/21 07:00 05/02/21 07:00 ABG ABG pH 7.36 (7.35-7.45) 05/02/21 05:25 ABG pCO2 32 mmHg (35-45) L 05/02/21 05:25 ABG pO2 338 mmHg (83-108) H 05/02/21 05:25 ABG O2 Saturation 98.5 % (94-97) H 05/02/21 05:25 PT/INR, D-dimer PT 12.6 sec (9.0-12.0) H 05/01/21 18:15 INR 1.2 (<1.2) H 05/01/21 18:15 Abnormal lab findings: Abnormal Labs 05/01/21 05/01/21 05/01/21 18:05 18:10 18:15 WBC 13.7 H Hct 49.0 H MCHC 30.4 L Neutrophils # Lymphocytes # (Manual) 5.89 H Monocytes # Metamyelocytes # (Man) 0.27 H Myelocytes # (Manual) 0.41 H PT INR APTT ABG pH ABG pCO2 ABG pO2 ABG HCO3 ABG O2 Saturation VBG pH 7.06 L* VBG HCO3 11 L Chloride Carbon Dioxide BUN Glucose POC Glucose (mg/dL) 296 H Plasma Lactic Acid Kory Magnesium AST ALT Alkaline Phosphatase Troponin I Urine Appearance Ur Specific Mckenna Urine Protein Urine Glucose (UA) Urine Blood Urine RBC Urine WBC Amorphous Sediment Urine Bacteria Hyaline Casts Urine Mucus 05/01/21 05/01/21 05/01/21 18:15 18:15 18:15 WBC Hct MCHC Neutrophils # Lymphocytes # (Manual) Monocytes # Metamyelocytes # (Man) Myelocytes # (Manual) PT 12.6 H INR 1.2 H APTT 31.8 H ABG pH ABG pCO2 ABG pO2 ABG HCO3 ABG O2 Saturation VBG pH VBG HCO3 Chloride Carbon Dioxide 11 L BUN 19 H Glucose 390 H POC Glucose (mg/dL) Plasma Lactic Acid Kory Magnesium 2.6 H AST 95 H ALT 53 H Alkaline Phosphatase 130 H Troponin I 0.038 H* Urine Appearance Ur Specific Mckenna Urine Protein Urine Glucose (UA) Urine Blood Urine RBC Urine WBC Amorphous Sediment Urine Bacteria Hyaline Casts Urine Mucus 05/01/21 05/01/21 05/01/21 18:15 19:33 20:41 WBC Hct MCHC Neutrophils # Lymphocytes # (Manual) Monocytes # Metamyelocytes # (Man) Myelocytes # (Manual) PT INR APTT ABG pH 7.16 L* ABG pCO2 49 H ABG pO2 ABG HCO3 17 L ABG O2 Saturation 93.2 L VBG pH VBG HCO3 Chloride Carbon Dioxide BUN Glucose POC Glucose (mg/dL) Plasma Lactic Acid Kory 9.9 H* 4.4 H* Magnesium AST ALT Alkaline Phosphatase Troponin I Urine Appearance Ur Specific Mckenna Urine Protein Urine Glucose (UA) Urine Blood Urine RBC Urine WBC Amorphous Sediment Urine Bacteria Hyaline Casts Urine Mucus 05/01/21 05/02/21 05/02/21 22:07 00:15 03:24 WBC Hct MCHC Neutrophils # Lymphocytes # (Manual) Monocytes # Metamyelocytes # (Man) Myelocytes # (Manual) PT INR APTT ABG pH ABG pCO2 ABG pO2 ABG HCO3 ABG O2 Saturation VBG pH VBG HCO3 Chloride Carbon Dioxide BUN Glucose POC Glucose (mg/dL) 203 H Plasma Lactic Acid Kory 4.0 H* 3.8 H* Magnesium AST ALT Alkaline Phosphatase Troponin I Urine Appearance Ur Specific Mckenna Urine Protein Urine Glucose (UA) Urine Blood Urine RBC Urine WBC Amorphous Sediment Urine Bacteria Hyaline Casts Urine Mucus 05/02/21 05/02/21 05/02/21 05:25 07:00 07:00 WBC 35.8 H Hct 46.1 H MCHC Neutrophils # 32.7 H Lymphocytes # (Manual) Monocytes # 1.6 H Metamyelocytes # (Man) Myelocytes # (Manual) PT INR APTT 104.3 H* ABG pH ABG pCO2 32 L ABG pO2 338 H ABG HCO3 18 L ABG O2 Saturation 98.5 H VBG pH VBG HCO3 Chloride Carbon Dioxide BUN Glucose POC Glucose (mg/dL) Plasma Lactic Acid Kory Magnesium AST ALT Alkaline Phosphatase Troponin I Urine Appearance Ur Specific Mckenna Urine Protein Urine Glucose (UA) Urine Blood Urine RBC Urine WBC Amorphous Sediment Urine Bacteria Hyaline Casts Urine Mucus 05/02/21 05/02/21 05/02/21 07:00 07:00 07:00 WBC Hct MCHC Neutrophils # Lymphocytes # (Manual) Monocytes # Metamyelocytes # (Man) Myelocytes # (Manual) PT INR APTT ABG pH ABG pCO2 ABG pO2 ABG HCO3 ABG O2 Saturation VBG pH VBG HCO3 Chloride 109 H Carbon Dioxide 17 L BUN 27 H Glucose 233 H POC Glucose (mg/dL) Plasma Lactic Acid Kory 4.2 H* Magnesium AST 103 H ALT 59 H Alkaline Phosphatase Troponin I 0.279 H* Urine Appearance Ur Specific Mckenna Urine Protein Urine Glucose (UA) Urine Blood Urine RBC Urine WBC Amorphous Sediment Urine Bacteria Hyaline Casts Urine Mucus 05/02/21 05/02/21 09:00 09:09 WBC Hct MCHC Neutrophils # Lymphocytes # (Manual) Monocytes # Metamyelocytes # (Man) Myelocytes # (Manual) PT INR APTT ABG pH ABG pCO2 ABG pO2 ABG HCO3 ABG O2 Saturation VBG pH VBG HCO3 Chloride Carbon Dioxide BUN Glucose POC Glucose (mg/dL) 183 H Plasma Lactic Acid Kory Magnesium AST ALT Alkaline Phosphatase Troponin I Urine Appearance Cloudy H Ur Specific Mckenna 1.046 H Urine Protein 1+ H Urine Glucose (UA) 1+ H Urine Blood Moderate H Urine RBC 46 H Urine WBC 6 H Amorphous Sediment Occasional H Urine Bacteria Occasional H Hyaline Casts 11 H Urine Mucus Few H - Diagnostic Findings Chest x-ray: image reviewed (As noted in HPI.) Assessment and Plan Assessment: Impression: Acute hypoxic respiratory failure secondary to cardiac arrest. Chronic systolic congestive heart failure with LV dysfunction. Possible ventricular fibrillation arrest. Acute pulmonary edema secondary to acute on chronic systolic congestive heart failure Recommendation: Weaning trial was given at bedside, and the patient seemed to tolerate the weaning trial well, hence the patient was extubated while I'm at bedside. Continue amiodarone and heparin. Continue norepinephrine and titrate gradually maintaining a mean arterial pressure above 65. Continue to hold blood pressure medications as long as the patient remains on levo fed. Cardiology to interrogate the defibrillator. We will continue to monitor in the ICU. Continue GI prophylaxis. Prognosis is relatively guarded. And the patient will remain in the ICU Time with Patient: Greater than 30
[2021-05-02 12:02] LABS: Glucose,Whole Blood 138 mg/dL (75-99)
--- NOTE | 2021-05-02 12:31 | P.HPIM ---
History of Present Illness This is a pleasant 55 years old female with past medical history of atrial fibrillation status post pacemaker Patient presents to the emergency room status post cardiac arrest. Records family were performing CPR upon EMS arrival. She was in V. fib and shocked 2, patient was given 2 epinephrine and 300 mg of amiodarone. Pulses were back before she was prepped to the emergency room. On arrival patient was tachycardic at 123, tachypnea catheter due to blood pressure was 140/76 and she was saturating 70%. At that time she opens her eyes to pain and Incomprehensible sounds. A documented [place] is about 15 minutes. Upon arrival patient was intubated because of hypoxia She was placed on heparin drip for suspected pulmonary embolism pulmonary and cardiology were consulted from emergency room. Antibiotics were started and emergency room. Also sodium bicarb drip and amiodarone were started. Labs showing leukocytosis of 35.8, rest of CBC is unremarkable. This morning pH 7.3 which is normal, pCO2 low at 32 and pO2 is 388. Sodium and potassium were normal, creatinine normal. Carbon dioxide is low at 17. Lactic acid is elevated Liver enzymes slightly elevated Also vital showing fever of 101.1. CTA of the chest showed no pulmonary embolism. Extensive pulmonary infiltrates that could lead to RDS EKG showing paced rhythm at 117. QTC is 585 Currently she still on heparin drip, amiodarone drip, sodium bicarbonate drip Review of Systems n/a patient is intubated Past Medical History Past Medical History: Atrial Fibrillation Additional Past Medical History / Comment(s): pacemaker, cardiac hx Last Myocardial Infarction Date:: 2012 History of Any Multi-Drug Resistant Organisms: None Reported Past Surgical History: Pacemaker Additional Past Surgical History / Comment(s): 2019 Replaced pacemaker Type of Cardiac Device: Permanent Pacemaker Device Placement Date:: n/a Past Psychological History: No Psychological Hx Reported Medications and Allergies Home Medications Medication Instructions Recorded Confirmed Type Bumetanide [BUMEX] 2 mg PO DAILY PRN 05/01/21 05/02/21 History Omeprazole 40 mg PO BID 05/01/21 05/01/21 History Potassium Chloride [Klor-Con 10] 100 meq PO DAILY 05/01/21 05/01/21 History Sacubitril/Valsartan [Entresto 24 1 tab PO BID 08/03/21 08/03/21 History mg-26 mg Tablet] Allergies Allergy/AdvReac Type Severity Reaction Status Date / Time Beta-Blockers Allergy Unknown Verified 05/01/21 21:17 (Beta-Adrenergic Bloc Physical Exam Vitals: Vital Signs Temp Pulse Resp BP BP Pulse Ox 05/02/21 08:00 99.7 F H 93 18 121/77 97 05/02/21 07:45 92 24 96 05/02/21 07:30 86 18 98 05/02/21 07:15 82 24 113/76 96 05/02/21 07:00 83 23 113/80 94 L 05/02/21 06:00 75 18 112/79 97 05/02/21 05:00 75 19 102/70 98 05/02/21 04:00 99.7 F H 76 19 82/56 97 05/02/21 03:00 75 18 94/65 98 05/02/21 02:00 80 27 H 108/71 98 05/02/21 01:00 80 18 89/60 92 L 05/02/21 00:23 74/55 05/02/21 00:00 97.4 F L 84 18 57/37 96 05/01/21 23:38 90 18 89/60 98 05/01/21 23:00 96.5 F L 90 19 81/63 98 05/01/21 22:08 96 16 05/01/21 21:53 99 27 H 100/75 97 05/01/21 21:40 96 16 85/60 94 L 05/01/21 21:20 101.1 F H 05/01/21 21:00 108 H 23 64/52 96 05/01/21 20:30 114 H 20 72/49 87 L 05/01/21 20:00 115 H 24 99/83 87 L 05/01/21 19:59 96.5 F L 95 05/01/21 19:40 134 H 16 140/112 98 05/01/21 19:19 135 H 16 142/112 98 05/01/21 18:55 131 H 16 150/114 97 05/01/21 18:34 113 H 16 101/78 93 L 05/01/21 18:19 119 H 14 94/70 70 L 05/01/21 18:10 76 L 05/01/21 17:56 123 H 32 H 140/76 70 L Intake and Output 05/01/21 05/02/21 05/02/21 22:59 06:59 14:59 Intake Total 7.313 281.156 363.313 Output Total 400 320 100 Balance -392.687 -38.844 263.313 Intake: Intake, IV Titration 7.313 281.156 363.313 Amount Dextrose 5% in Water 1, 50 000 ml @ 50 mls/hr IV . Q23H RAUL with Sodium Bicarb (1 Meq/ml) 150 ml Rx#:[id number] Norepinephrine 4 mg In 254.000 254 Sodium Chloride 0.9% 250 ml @ 0.05 MCG/KG/MIN 13. 907 mls/hr IV .[id number] RAUL Rx#:[id number] propofoL 1,000 mg In 7.313 27.156 59.313 Empty Bag 1 bag @ Titrate IV .Q0M RAUL Rx#: [id number] Oral 0 Output: Gastric Drainage 300 Urine 320 100 Other 100 Other: Voiding Method Indwelling Catheter Indwelling Catheter Weight 73 kg 73 kg -GENERAL: The patient is intubated and sedated HEENT: Pupils are round and equally reacting to light. EOMI. No scleral icterus. No conjunctival pallor. Normocephalic, atraumatic. No pharyngeal erythema. No thyromegaly. CARDIOVASCULAR: S1 and S2 present. No murmurs, rubs, or gallops. PULMONARY: Chest is clear to auscultation, no wheezing or crackles. ABDOMEN: Soft, nontender, nondistended, normoactive bowel sounds. No palpable organomegaly. MUSCULOSKELETAL: No joint swelling or deformity. EXTREMITIES: No cyanosis, clubbing, or pedal edema. NEUROLOGICAL: Gross neurological examination did not reveal any focal deficits. SKIN: No rashes. No petechiae Results CBC & Chem 7: 05/02/21 07:00 05/02/21 07:00 Labs: Abnormal Lab Results - Last 24 Hours (Table) 05/01/21 05/01/21 05/01/21 Range/Units 18:05 18:10 18:15 WBC 13.7 H (3.8-10.6) k/uL Hct 49.0 H (34.0-46.0) % MCHC 30.4 L (31.0-37.0) g/dL Lymphocytes # (Manual) 5.89 H (1.0-4.8) k/uL Metamyelocytes # (Man) 0.27 H (0) k/uL Myelocytes # (Manual) 0.41 H (0) k/uL PT (9.0-12.0) sec INR (<1.2) APTT (22.0-30.0) sec ABG pH (7.35-7.45) ABG pCO2 (35-45) mmHg ABG pO2 (83-108) mmHg ABG HCO3 (21-25) mmol/L ABG O2 Saturation (94-97) % VBG pH 7.06 L* (7.31-7.41) VBG HCO3 11 L (24-28) mmol/L Chloride (98-107) mmol/L Carbon Dioxide (22-30) mmol/L BUN (7-17) mg/dL Glucose (74-99) mg/dL POC Glucose (mg/dL) 296 H (75-99) mg/dL Plasma Lactic Acid Kory (0.7-2.0) mmol/L Magnesium (1.6-2.3) mg/dL AST (14-36) U/L ALT (4-34) U/L Alkaline Phosphatase (38-126) U/L Troponin I (0.000-0.034) ng/mL 05/01/21 05/01/21 05/01/21 Range/Units 18:15 18:15 18:15 WBC (3.8-10.6) k/uL Hct (34.0-46.0) % MCHC (31.0-37.0) g/dL Lymphocytes # (Manual) (1.0-4.8) k/uL Metamyelocytes # (Man) (0) k/uL Myelocytes # (Manual) (0) k/uL PT 12.6 H (9.0-12.0) sec INR 1.2 H (<1.2) APTT 31.8 H (22.0-30.0) sec ABG pH (7.35-7.45) ABG pCO2 (35-45) mmHg ABG pO2 (83-108) mmHg ABG HCO3 (21-25) mmol/L ABG O2 Saturation (94-97) % VBG pH (7.31-7.41) VBG HCO3 (24-28) mmol/L Chloride (98-107) mmol/L Carbon Dioxide 11 L (22-30) mmol/L BUN 19 H (7-17) mg/dL Glucose 390 H (74-99) mg/dL POC Glucose (mg/dL) (75-99) mg/dL Plasma Lactic Acid Kory (0.7-2.0) mmol/L Magnesium 2.6 H (1.6-2.3) mg/dL AST 95 H (14-36) U/L ALT 53 H (4-34) U/L Alkaline Phosphatase 130 H (38-126) U/L Troponin I 0.038 H* (0.000-0.034) ng/mL 05/01/21 05/01/21 05/01/21 Range/Units 18:15 19:33 20:41 WBC (3.8-10.6) k/uL Hct (34.0-46.0) % MCHC (31.0-37.0) g/dL Lymphocytes # (Manual) (1.0-4.8) k/uL Metamyelocytes # (Man) (0) k/uL Myelocytes # (Manual) (0) k/uL PT (9.0-12.0) sec INR (<1.2) APTT (22.0-30.0) sec ABG pH 7.16 L* (7.35-7.45) ABG pCO2 49 H (35-45) mmHg ABG pO2 (83-108) mmHg ABG HCO3 17 L (21-25) mmol/L ABG O2 Saturation 93.2 L (94-97) % VBG pH (7.31-7.41) VBG HCO3 (24-28) mmol/L Chloride (98-107) mmol/L Carbon Dioxide (22-30) mmol/L BUN (7-17) mg/dL Glucose (74-99) mg/dL POC Glucose (mg/dL) (75-99) mg/dL Plasma Lactic Acid Kory 9.9 H* 4.4 H* (0.7-2.0) mmol/L Magnesium (1.6-2.3) mg/dL AST (14-36) U/L ALT (4-34) U/L Alkaline Phosphatase (38-126) U/L Troponin I (0.000-0.034) ng/mL 05/01/21 05/02/21 05/02/21 Range/Units 22:07 00:15 03:24 WBC (3.8-10.6) k/uL Hct (34.0-46.0) % MCHC (31.0-37.0) g/dL Lymphocytes # (Manual) (1.0-4.8) k/uL Metamyelocytes # (Man) (0) k/uL Myelocytes # (Manual) (0) k/uL PT (9.0-12.0) sec INR (<1.2) APTT (22.0-30.0) sec ABG pH (7.35-7.45) ABG pCO2 (35-45) mmHg ABG pO2 (83-108) mmHg ABG HCO3 (21-25) mmol/L ABG O2 Saturation (94-97) % VBG pH (7.31-7.41) VBG HCO3 (24-28) mmol/L Chloride (98-107) mmol/L Carbon Dioxide (22-30) mmol/L BUN (7-17) mg/dL Glucose (74-99) mg/dL POC Glucose (mg/dL) 203 H (75-99) mg/dL Plasma Lactic Acid Kory 4.0 H* 3.8 H* (0.7-2.0) mmol/L Magnesium (1.6-2.3) mg/dL AST (14-36) U/L ALT (4-34) U/L Alkaline Phosphatase (38-126) U/L Troponin I (0.000-0.034) ng/mL 05/02/21 05/02/21 05/02/21 Range/Units 05:25 07:00 07:00 WBC 35.8 H (3.8-10.6) k/uL Hct 46.1 H (34.0-46.0) % MCHC (31.0-37.0) g/dL Lymphocytes # (Manual) (1.0-4.8) k/uL Metamyelocytes # (Man) (0) k/uL Myelocytes # (Manual) (0) k/uL PT (9.0-12.0) sec INR (<1.2) APTT (22.0-30.0) sec ABG pH (7.35-7.45) ABG pCO2 32 L (35-45) mmHg ABG pO2 338 H (83-108) mmHg ABG HCO3 18 L (21-25) mmol/L ABG O2 Saturation 98.5 H (94-97) % VBG pH (7.31-7.41) VBG HCO3 (24-28) mmol/L Chloride 109 H (98-107) mmol/L Carbon Dioxide 17 L (22-30) mmol/L BUN 27 H (7-17) mg/dL Glucose 233 H (74-99) mg/dL POC Glucose (mg/dL) (75-99) mg/dL Plasma Lactic Acid Kory (0.7-2.0) mmol/L Magnesium (1.6-2.3) mg/dL AST 103 H (14-36) U/L ALT 59 H (4-34) U/L Alkaline Phosphatase (38-126) U/L Troponin I (0.000-0.034) ng/mL 05/02/21 Range/Units 07:00 WBC (3.8-10.6) k/uL Hct (34.0-46.0) % MCHC (31.0-37.0) g/dL Lymphocytes # (Manual) (1.0-4.8) k/uL Metamyelocytes # (Man) (0) k/uL Myelocytes # (Manual) (0) k/uL PT (9.0-12.0) sec INR (<1.2) APTT (22.0-30.0) sec ABG pH (7.35-7.45) ABG pCO2 (35-45) mmHg ABG pO2 (83-108) mmHg ABG HCO3 (21-25) mmol/L ABG O2 Saturation (94-97) % VBG pH (7.31-7.41) VBG HCO3 (24-28) mmol/L Chloride (98-107) mmol/L Carbon Dioxide (22-30) mmol/L BUN (7-17) mg/dL Glucose (74-99) mg/dL POC Glucose (mg/dL) (75-99) mg/dL Plasma Lactic Acid Kory 4.2 H* (0.7-2.0) mmol/L Magnesium (1.6-2.3) mg/dL AST (14-36) U/L ALT (4-34) U/L Alkaline Phosphatase (38-126) U/L Troponin I (0.000-0.034) ng/mL Thrombosis Risk Factor Assmnt - Choose All That Apply Each Factor Represents 1 point: Age 41-60 years Thrombosis Risk Factor Assessment Total Risk Factor Score: 1 Thrombosis Risk Factor Assessment Level: Low Risk Assessment and Plan Assessment: Status post cardiac arrest, status post CPR prepped arriving to the hospital which was successful in restoring circulation. [place] is documented about 15 minutes Acute hypoxic respiratory failure status post intubation Acute systolic CHF with cardiomyopathy and ejection fraction 20-25% leukocytosis, fever. No obvious source of infection Elevated lactic acid. With acidosis History of atrial fibrillation on pacemaker Plan: This is a pleasant 55 years old female who presents with cardiac arrest, sepsis. continue with heparin, amiodarone and sodium bicarbonate drip Pulmonary consult with help in the vent management Cardiology consult Check urinalysis and throatcalcitonin Labs and medication were reviewed.. Continue same treatment. Continue with symptomatic treatment. Resume home medication. Monitor lytes and vitals. DVT and GI prophylaxis. Further recommendations depends on the clinical course of the patient DVT prophylaxis: heparin GI Prophylaxis: Ppi Prognosis is guarded
[2021-05-02] MEDS: AMIODARONE 450 MG in DEXTROSE 5% IN WATER 250 ML IV SCH ×2 (15:35)
[2021-05-02] MEDS: DEXTROSE 5% IN WATER 1,000 ML with SODIUM BICARB (1 MEQ/ML) 150 ML IV SCH (16:24)
[2021-05-02 16:38] LABS: Glucose,Whole Blood 112 mg/dL (75-99)
[2021-05-02] MEDS: ACETAMINOPHEN TAB 325 MG TAB PO PRN (19:58)
[2021-05-02 21:02] LABS: Glucose,Whole Blood 106 mg/dL (75-99)
[2021-05-02] MEDS: AMIODARONE 200 MG TAB PO SCH (21:47)
[2021-05-02] MEDS: BACITRACIN OINT 1 EACH PACKET TOPICAL SCH (21:47)
[2021-05-03 04:35] LABS: Basophils % (A) 0 %; Eosinophils # (A) 0.1 k/uL (0-0.7); Eosinophils % (A) 1 %; HCT 34.8 % (34.0-46.0); Lymphocytes # (A) 1.1 k/uL (1.0-4.8); Lymphocytes % (A) 6 %; MCHC 33.3 g/dL (31.0-37.0); MCV 93.2 fL (80.0-100.0); Mean Platelet Volume 8.1; Monocytes # (A) 0.9 k/uL (0-1.0); Monocytes % (A) 5 %; Neutrophils # (A) 14.9 k/uL (1.3-7.7); Neutrophils % (A) 87 %; Platelet Count 181 k/uL (150-450); RBC 3.74 m/uL (3.80-5.40); RDW 13.9 % (11.5-15.5); WBC 17.2 k/uL (3.8-10.6)
[2021-05-03 04:39] LABS: HGB 11.6 gm/dL (11.4-16.0)
[2021-05-03 05:00] LABS: ALT 44 U/L (4-34); AST 60 U/L (14-36); African American GFR (CKD) >90 (>60 ml/min/1.73 sqM); Albumin 3.2 g/dL (3.5-5.0); Alkaline Phosphatase 86 U/L (38-126); Anion Gap 4 mmol/L; Blood Urea Nitrogen 13 mg/dL (7-17); Carbon Dioxide 25 mmol/L (22-30); Chloride 106 mmol/L (98-107); Glucose 111 mg/dL (74-99); Non-African American GFR(CKD) >90 (>60 ml/min/1.73 sqM); Potassium 4.1 mmol/L (3.5-5.1); Sodium 135 mmol/L (137-145); Total Bilirubin 1.1 mg/dL (0.2-1.3); Total Protein 5.6 g/dL (6.3-8.2)
[2021-05-03 07:00] LABS: Glucose,Whole Blood 107 mg/dL (75-99)
[2021-05-03] MEDS: INSULIN ASPART (NovoLOG) 100 UNIT/ML VIAL SQ SCH ×4 (07:03→21:00)
[2021-05-03] MEDS: HYDROcodone/APAP 5-325MG 1 EACH TAB PO PRN (08:18)
[2021-05-03] MEDS: AMIODARONE 200 MG TAB PO SCH ×2 (08:18→21:04)
[2021-05-03] MEDS: PANTOPRAZOLE 40 MG/10 ML VIAL IV SCH (08:19)
[2021-05-03] MEDS: BACITRACIN OINT 1 EACH PACKET TOPICAL SCH ×3 (08:20→21:04)
[2021-05-03] MEDS: FUROSEMIDE 10 MG/ML 4 ML VIAL IV SCH ×3 (08:29→23:14)
--- NOTE | 2021-05-03 08:52 | XR ---
EXAMINATION TYPE: XR chest 1V DATE OF EXAM: 05/03/2021 COMPARISON: 05/02/2021 INDICATION: Short of breath TECHNIQUE: Single frontal view of the chest is obtained. FINDINGS: The heart size is enlarged. The pulmonary vasculature is indistinct. Patchy infiltrates in the perihilar and upper lung levin. Findings are worsened over the interval. Patient has been extubated. Nasogastric tube is been removed. Pacemaker overlies left chest IMPRESSION: 1. Worsening patchy perihilar infiltrates. 2. Lines and catheters been removed.
[2021-05-03] MEDS: KETOROLAC 15 MG/ML 1 ML VIAL IVP SCH ×3 (10:52→21:04)
[2021-05-03] MEDS: HEPARIN SOD,PORK IN 0.45% NACL 25,000 UNIT in 0.45% NACL 1 250ML.BAG IV SCH (10:53)
[2021-05-03 11:34] LABS: Glucose,Whole Blood 129 mg/dL (75-99)
[2021-05-03 11:54] LABS: Appearance,Urine Clear (Clear); Bilirubin,Urine Negative (Negative); Blood,Urine Negative (Negative); Color,Urine Light Yellow; Glucose,Urine (UA) Negative (Negative); Ketones,Urine Negative (Negative); Leukocyte Esterase,Urine Negative (Negative); Nitrite,Urine Negative (Negative); Protein,Urine Negative (Negative); Specific Gravity,Urine 1.008 (1.001-1.035); Urobilinogen,Urine <2.0 mg/dL (<2.0)
--- NOTE | 2021-05-03 12:33 | P.PN ---
Subjective Progress Note Date: 05/03/21 Principal diagnosis: Out of hospital cardiac arrest This is a 55-year-old female brought in yesterday by EMS, patient is known to have history of chronic atrial fibrillation, cardiomyopathy, AICD placement, history of pacemaker implantation, patient had a witnessed cardiac arrest by family members, CPR was initiated by family, until EMS arrived, she received 2 rounds of epinephrine and 2 external defibrillations. Apparently the patient was in ventricular fibrillation at the time of EMS arrival. She also received 300 mg of amiodarone and she was brought into the ER where in she was immediately intubated upon arrival. Patient was maintained on amiodarone, and she was also placed on heparin. Patient was kept on mechanical ventilation overnight, and I was asked to see her on consultation. I evaluated the patient this morning, and she remains on mechanical ventilation, assist control rate was 18 tidal volume 500 FiO2 was down to 50%, PEEP was 15. and her ABG showed a pO2 of 338 pCO2 of 32 pH of 7.36. Chest x-ray showed significant improvement compared to last night x-ray, significant improvement in her pulmonary edema is noted. Patient was also noted to be on norepinephrine at 0.2 mcg/kg/m, she is off propofol, remains on heparin and amiodarone during my evaluation. After reviewing the ABG, chest x-ray, and the ventilator settings, I titrated her FiO2 down to 50%, PEEP down to 6, and shortly after went ahead and changed the patient to pressure support mode of mechanical ventilation, with rushes support of 8 and CPAP. Patient seemed to be tolerating this mode of ventilation well, she had decent tidal volumes in the range of 600+, and her rate was in the range of 18. Patient was awake, following all simple instructions, getting extremely agitated with the endotracheal tube and orogastric tube, hence after a short trial of pressure support and CPAP, went ahead and extubated the patient to a nasal cannula. Patient tolerated the extubation quite well while I was at bedside. WBC count this morning is 35.8 hemoglobin is 14.6. PTT is 104, on h eparin as per protocol. Electrolytes are normal bicarb is 17 BUN is 27 creatinine 0.88, troponin 0.279. Chest x-ray showed significant interval improvement in patient's pulmonary edema compared to her initial chest x-ray on admission. Reevaluated today on 05/03/2021, patient remains in the ICU, presently on 5 L nasal cannula with O2 saturation of 94%. Remains on bicarb drip which I have discontinued today since her bicarb level is normal. Chest x-ray shows evidence of pulmonary edema, and I started the patient on Lasix at 40 mg IV push every 8 hours. Patient continues to have paced rhythm. Her echocardiogram showed very poor LV function with ejection fraction of 20-25%. Her IV fluid is now at KVO, patient is asking the nurse to make sure that she is DO NOT RESUSCITATE CODE STATUS, patient feels generally weak tired, and she is very well aware of her condition and her cardiac status. Patient clearly stated that if she is to code again, she would not want to be resuscitated. Continues to have chest wall pain from CPR. And I have recommended Toradol today. WBC count today 17.2 hemoglobin is 11.6. PTT is 44.6 and a quite abnormal renal profile is normal Objective - Vital Signs Vital signs: Vital Signs Temp 98.3 F 05/03/21 12:00 Pulse 69 05/03/21 12:00 Resp 16 05/03/21 12:00 BP 104/49 05/03/21 12:00 Pulse Ox 96 05/03/21 12:00 Intake & Output 05/02/21 05/03/21 05/03/21 18:59 06:59 18:59 Intake Total 1630.827 625 452.637 Output Total 872 810 860 Balance 758.827 -185 -407.363 Weight 73 kg 72 kg Intake: IV 575 180 0.9 80 Dextrose 5% in Water 1, 575 100 000 ml @ 50 mls/hr IV . Q23H RAUL with Sodium Bicarb (1 Meq/ml) 150 ml Rx#:[id number] Intake, IV Titration 1630.827 50 272.637 Amount Amiodarone 450 mg In 250 Dextrose 5% in Water 250 ml @ 0.5 MG/MIN 16.667 mls/hr IV .Q15H RAUL Rx#: [id number] Dextrose 5% in Water 1, 550 50 000 ml @ 50 mls/hr IV . Q23H RAUL with Sodium Bicarb (1 Meq/ml) 150 ml Rx#:[id number] Heparin Sod,Pork in 0.45% 64.97 148.774 NaCl 25,000 unit In 0.45 % NaCl 1 250ml.bag @ 12 UNITS/KG/HR 8.76 mls/hr IV .Q24H RAUL Rx#: [id number] Heparin Sod,Pork in 0.45% 188.981 NaCl 25,000 unit In 0.45 % NaCl 1 250ml.bag @ 18 UNITS/KG/HR 12.655 mls/hr IV .[id number] RAUL Rx#: [id number] Norepinephrine 4 mg In 508.000 123.863 Sodium Chloride 0.9% 250 ml @ 0.05 MCG/KG/MIN 13. 907 mls/hr IV .[id number] RAUL Rx#:[id number] propofoL 1,000 mg In 68.876 Empty Bag 1 bag @ Titrate IV .Q0M RAUL Rx#: [id number] Oral 0 Output: Urine 872 810 860 Other: Voiding Method Indwelling Catheter Indwelling Catheter Indwelling Catheter - Exam Physical Exam: Revealed a 55-year-old female in no distress, on few liters nasal cannula. Frail and generally weak. Head: Atraumatic, normocephalic. HEENT:[Neck is supple.] [No neck masses.] [No thyromegaly.] [No JVD.] Moist mucous membranes. Chest: [Symmetrical chest expansion, fine crackles at the bases. Cardiac Exam: [Normal S1 and S2, no S3 gallop, no murmur.] Abdomen: [Soft, nontender, no megaly, no rebound, no guarding, normal bowel sounds.] Extremities: [No clubbing, no edema no cyanosis. Neurological Exam: [No focal neurologic deficit.] Alert and oriented 3, Musculoskeletal: No deformities noted limitation range of motion. Psychiatric: Depressed mood, blunted affect, normal mental status examination - Labs CBC & Chem 7: 05/03/21 04:01 05/03/21 04:01 Labs: Abnormal Lab Results - Last 24 Hours (Table) 05/02/21 05/02/21 05/02/21 Range/Units 07:00 16:27 17:16 WBC (3.8-10.6) k/uL RBC (3.80-5.40) m/uL Neutrophils # (1.3-7.7) k/uL APTT 46.8 H (22.0-30.0) sec Sodium (137-145) mmol/L Creatinine (0.52-1.04) mg/dL Glucose (74-99) mg/dL POC Glucose (mg/dL) 112 H (75-99) mg/dL AST (14-36) U/L ALT (4-34) U/L Total Protein (6.3-8.2) g/dL Albumin (3.5-5.0) g/dL Procalcitonin 3.14 H (0.02-0.09) ng/mL 05/02/21 05/03/21 05/03/21 Range/Units 21:00 04:01 04:01 WBC 17.2 H (3.8-10.6) k/uL RBC 3.74 L (3.80-5.40) m/uL Neutrophils # 14.9 H (1.3-7.7) k/uL APTT 44.6 H (22.0-30.0) sec Sodium (137-145) mmol/L Creatinine (0.52-1.04) mg/dL Glucose (74-99) mg/dL POC Glucose (mg/dL) 106 H (75-99) mg/dL AST (14-36) U/L ALT (4-34) U/L Total Protein (6.3-8.2) g/dL Albumin (3.5-5.0) g/dL Procalcitonin (0.02-0.09) ng/mL 05/03/21 05/03/21 05/03/21 Range/Units 04:01 06:58 11:33 WBC (3.8-10.6) k/uL RBC (3.80-5.40) m/uL Neutrophils # (1.3-7.7) k/uL APTT (22.0-30.0) sec Sodium 135 L (137-145) mmol/L Creatinine 0.47 L (0.52-1.04) mg/dL Glucose 111 H (74-99) mg/dL POC Glucose (mg/dL) 107 H 129 H (75-99) mg/dL AST 60 H (14-36) U/L ALT 44 H (4-34) U/L Total Protein 5.6 L (6.3-8.2) g/dL Albumin 3.2 L (3.5-5.0) g/dL Procalcitonin (0.02-0.09) ng/mL Assessment and Plan Assessment: Impression: Acute hypoxic respiratory failure secondary to cardiac arrest. Chronic systolic congestive heart failure with LV dysfunction. ventricular fibrillation arrest. Acute pulmonary edema secondary to acute on chronic systolic congestive heart failure Recommendation: Continue to monitor in the ICU. Discontinue sodium bicarb. Start patient on diuretics since her chest x-ray is showing worsening pulmonary edema. Continue cardiac meds as per cardiology on the case including amiodarone. She is now on oral amiodarone. Continue heparin. Continue GI and DVT prophylaxis. Change CODE STATUS to DO NOT RESUSCITATE as per patient's own wishes. We'll continue to follow Repeat chest x-ray in a.m. Time with Patient: Less than 30
[2021-05-03] MEDS: ONDANSETRON 4 MG/2 ML VIAL IVP PRN ×2 (12:53→19:51)
[2021-05-03] MEDS ORDERED: POTASSIUM CHLORIDE ER 20 MEQ TAB.ER PO STA (13:11)
[2021-05-03] MEDS: SPIRONOLACTONE 25 MG TAB PO SCH (14:02)
[2021-05-03 16:33] LABS: Glucose,Whole Blood 123 mg/dL (75-99)
--- NOTE | 2021-05-03 17:28 | P.PN ---
Subjective Progress Note Date: 05/03/21 Principal diagnosis: Cardiac arrest and pulmonary edema This 55-year-old female with history of cardiomyopathy and congestive heart failure and status post ACD implantation was admitted following cardiac arrest and also having prolonged CPR. Patient also had a respiratory failure requiring intubation. Currently she is extubated. She is in ICU seemed to be frail and weak and fatigued. Denies any shortness of breath. Complaints of chest pain which appeared to be compressions. Patient fully understands her cardiac status and wants to be no CODE STATUS at this time. A chest x-ray showed Pulmonary edema. Patient is on diuretics now. Diuresing fairly well. Patient has no further significant cardiac arrhythmias. She is on by mouth amiodarone. We'll also initiating her on Aldactone. We'll restart her beta blockers and also Entresto as tolerated. 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 Q23H RAUL with Sodium Bicarb (1 Meq/ml) 150 ml Rx#:[id number] Intake, IV Titration 1630.827 50 272.637 Amount Amiodarone 450 mg In 250 Dextrose 5% in Water 250 ml @ 0.5 MG/MIN 16.667 mls/hr IV .Q15H RAUL Rx#: [id number] Dextrose 5% in Water 1, 550 50 000 ml @ 50 mls/hr IV . Q23H RAUL with Sodium Bicarb (1 Meq/ml) 150 ml Rx#:[id number] Heparin Sod,Pork in 0.45% 64.97 148.774 NaCl 25,000 unit In 0.45 % NaCl 1 250ml.bag @ 12 UNITS/KG/HR 8.76 mls/hr IV .Q24H RAUL Rx#: [id number] Heparin Sod,Pork in 0.45% 188.981 NaCl 25,000 unit In 0.45 % NaCl 1 250ml.bag @ 18 UNITS/KG/HR 12.655 mls/hr IV .[id number] RAUL Rx#: [id number] Norepinephrine 4 mg In 508.000 123.863 Sodium Chloride 0.9% 250 ml @ 0.05 MCG/KG/MIN 13. 907 mls/hr IV .[id number] RAUL Rx#:[id number] propofoL 1,000 mg In 68.876 Empty Bag 1 bag @ Titrate IV .Q0M RAUL Rx#: [id number] Oral 0 Output: Urine 872 810 980 Other: Voiding Method Indwelling Catheter Indwelling Catheter Indwelling Catheter - Exam GENERAL EXAM: Patient is alert and oriented and appears to be weak and frail HEENT: Normocephalic. Normal reaction of pupils, equal size, normal range of extraocular motion. No erythema or exudates in throat. NECK: No masses, no nuchal rigidity. CHEST: No chest wall deformity. LUNGS: Diminished air exchange HEART: S1 and S2 normal ABDOMEN: No hepatosplenomegaly, normal bowel sounds, no guarding or rigidity. SKIN: No rashes CENTRAL NERVOUS SYSTEM: No focal deficits. EXTREMITIES: No cyanosis, clubbing or edema. - Labs CBC & Chem 7: 05/03/21 04:01 05/03/21 04:01 Labs: Abnormal Lab Results - Last 24 Hours (Table) 05/02/21 05/02/21 05/02/21 Range/Units 07:00 17:16 21:00 WBC (3.8-10.6) k/uL RBC (3.80-5.40) m/uL Neutrophils # (1.3-7.7) k/uL APTT 46.8 H (22.0-30.0) sec Sodium (137-145) mmol/L Creatinine (0.52-1.04) mg/dL Glucose (74-99) mg/dL POC Glucose (mg/dL) 106 H (75-99) mg/dL AST (14-36) U/L ALT (4-34) U/L Total Protein (6.3-8.2) g/dL Albumin (3.5-5.0) g/dL Procalcitonin 3.14 H (0.02-0.09) ng/mL 05/03/21 05/03/21 05/03/21 Range/Units 04:01 04:01 04:01 WBC 17.2 H (3.8-10.6) k/uL RBC 3.74 L (3.80-5.40) m/uL Neutrophils # 14.9 H (1.3-7.7) k/uL APTT 44.6 H (22.0-30.0) sec Sodium 135 L (137-145) mmol/L Creatinine 0.47 L (0.52-1.04) mg/dL Glucose 111 H (74-99) mg/dL POC Glucose (mg/dL) (75-99) mg/dL AST 60 H (14-36) U/L ALT 44 H (4-34) U/L Total Protein 5.6 L (6.3-8.2) g/dL Albumin 3.2 L (3.5-5.0) g/dL Procalcitonin (0.02-0.09) ng/mL 05/03/21 05/03/21 05/03/21 Range/Units 06:58 11:33 16:31 WBC (3.8-10.6) k/uL RBC (3.80-5.40) m/uL Neutrophils # (1.3-7.7) k/uL APTT (22.0-30.0) sec Sodium (137-145) mmol/L Creatinine (0.52-1.04) mg/dL Glucose (74-99) mg/dL POC Glucose (mg/dL) 107 H 129 H 123 H (75-99) mg/dL AST (14-36) U/L ALT (4-34) U/L Total Protein (6.3-8.2) g/dL Albumin (3.5-5.0) g/dL Procalcitonin (0.02-0.09) ng/mL Assessment and Plan (1) Non-ischemic cardiomyopathy Current Visit: Yes Status: Acute Code(s): I42.8 - OTHER CARDIOMYOPATHIES SNOMED Code(s): 90067251 (2) Cardiac arrest Current Visit: Yes Status: Acute Code(s): I46.9 - CARDIAC ARREST, CAUSE UNSPECIFIED SNOMED Code(s): 468665752 (3) History of automatic internal cardiac defibrillator (AICD) Current Visit: Yes Status: Acute Code(s): Z95.810 - PRESENCE OF AUTOMATIC (IMPLANTABLE) CARDIAC DEFIBRILLATOR SNOMED Code(s): 234648703 (4) Pulmonary edema Current Visit: Yes Status: Acute Code(s): J81.1 - CHRONIC PULMONARY EDEMA SNOMED Code(s): 98211352 Plan: Continue current management with the diuretics. We'll resume rest of the medication as tolerated. Patient is also on by mouth amiodarone and waiting input from field crop farm worker . Patient requests no CODE STATUS. Prognosis is poor
[2021-05-03 20:37] LABS: Glucose,Whole Blood 94 mg/dL (75-99)
[2021-05-04] MEDS: KETOROLAC 15 MG/ML 1 ML VIAL IVP SCH ×5 (02:53→21:15)
[2021-05-04] MEDS: ACETAMINOPHEN TAB 325 MG TAB PO PRN (03:00)
[2021-05-04 04:38] LABS: Basophils % (A) 0 %; Eosinophils # (A) 0.1 k/uL (0-0.7); Eosinophils % (A) 1 %; HCT 34.4 % (34.0-46.0); HGB 11.3 gm/dL (11.4-16.0); Lymphocytes # (A) 1.1 k/uL (1.0-4.8); Lymphocytes % (A) 8 %; MCH 30.6 pg (25.0-35.0); MCHC 32.9 g/dL (31.0-37.0); MCV 92.9 fL (80.0-100.0); Mean Platelet Volume 8.1; Monocytes # (A) 0.6 k/uL (0-1.0); Monocytes % (A) 5 %; Neutrophils # (A) 11.3 k/uL (1.3-7.7); Neutrophils % (A) 85 %; Platelet Count 177 k/uL (150-450); RDW 13.5 % (11.5-15.5); WBC 13.3 k/uL (3.8-10.6)
[2021-05-04 04:53] LABS: ALT 42 U/L (4-34); AST 44 U/L (14-36); African American GFR (CKD) >90 (>60 ml/min/1.73 sqM); Albumin 3.2 g/dL (3.5-5.0); Alkaline Phosphatase 82 U/L (38-126); Anion Gap 4 mmol/L; Blood Urea Nitrogen 19 mg/dL (7-17); Calcium 9.1 mg/dL (8.4-10.2); Carbon Dioxide 31 mmol/L (22-30); Chloride 101 mmol/L (98-107); Glucose 118 mg/dL (74-99); Non-African American GFR(CKD) >90 (>60 ml/min/1.73 sqM); Sodium 136 mmol/L (137-145); Total Bilirubin 1.1 mg/dL (0.2-1.3); Total Protein 5.5 g/dL (6.3-8.2)
[2021-05-04] MEDS ORDERED: POTASSIUM CHLORIDE ER 20 MEQ TAB.ER PO STA (05:11)
[2021-05-04 06:54] LABS: Glucose,Whole Blood 115 mg/dL (75-99)
[2021-05-04] MEDS: INSULIN ASPART (NovoLOG) 100 UNIT/ML VIAL SQ SCH ×4 (08:27→21:05)
[2021-05-04] MEDS: HYDROcodone/APAP 5-325MG 1 EACH TAB PO PRN (08:31)
[2021-05-04] MEDS: AMIODARONE 200 MG TAB PO SCH ×2 (08:32→21:14)
[2021-05-04] MEDS: FUROSEMIDE 10 MG/ML 4 ML VIAL IV SCH ×2 (08:32→21:15)
[2021-05-04] MEDS: SPIRONOLACTONE 25 MG TAB PO SCH (08:32)
[2021-05-04] MEDS: PANTOPRAZOLE 40 MG/10 ML VIAL IV SCH (08:32)
--- NOTE | 2021-05-04 08:42 | XR ---
EXAMINATION TYPE: XR chest 1V DATE OF EXAM: 05/04/2021 COMPARISON: 05/03/2021 HISTORY: 55-year-old female shortness of breath TECHNIQUE: Single frontal view of the chest is obtained. FINDINGS: Left anterior chest wall AICD generator with right atrial, right ventricular, and coronary sinus lead s. Heart remains mildly enlarged. Perihilar and interstitial opacities persist but with slight improveme nt. Some silhouetting of the left heart margin could be from a small underlying effusion. IMPRESSION: CHF with improving patchy pulmonary edema.
[2021-05-04] MEDS ORDERED: POTASSIUM CHLORIDE ER 20 MEQ TAB.ER PO SCH (09:00)
[2021-05-04] MEDS: BACITRACIN OINT 1 EACH PACKET TOPICAL SCH ×3 (09:00→21:16)
[2021-05-04] MEDS ORDERED: SPIRONOLACTONE 25 MG TAB PO STA (09:58)
[2021-05-04] MEDS ORDERED: CHLORHEXIDINE GLUCONATE 15 ML CUP MUCOUS MEM PRN (10:27)
[2021-05-04] MEDS: SACUBITRIL/VALSARTAN 24 MG-26 MG TABLET PO SCH ×2 (10:33→21:16)
--- NOTE | 2021-05-04 10:34 | P.PN ---
Subjective This is a pleasant 55 years old female with past medical history of atrial fibrillation status post pacemaker Patient presents to the emergency room status post cardiac arrest. Records family were performing CPR upon EMS arrival. She was in V. fib and shocked 2, patient was given 2 epinephrine and 300 mg of amiodarone. Pulses were back before she was prepped to the emergency room. On arrival patient was tachycardic at 123, tachypnea catheter due to blood pressure was 140/76 and she was saturating 70%. At that time she opens her eyes to pain and Incomprehensible sounds. A documented downtown is about 15 minutes. Upon arrival patient was intubated because of hypoxia She was placed on heparin drip for suspected pulmonary embolism pulmonary and cardiology were consulted from emergency room. Antibiotics were started and emergency room. Also sodium bicarb drip and amiodarone were started. Labs showing leukocytosis of 35.8, rest of CBC is unremarkable. This morning pH 7.3 which is normal, pCO2 low at 32 and pO2 is 388. Sodium and potassium were normal, creatinine normal. Carbon dioxide is low at 17. Lactic acid is elevated Liver enzymes slightly elevated Also vital showing fever of 101.1. CTA of the chest showed no pulmonary embolism. Extensive pulmonary infiltrates that could lead to RDS EKG showing paced rhythm at 117. QTC is 585 Currently she still on heparin drip, amiodarone drip, sodium bicarbonate drip 01/2021 Patient was extubated yesterday. Patient is awake today, not in distress but she has chest wall pain and tenderness from her CPR with some abrasions over the lower part of her sternal bone. She complains from some chest soreness in her mouth and chlorhexidine is ordered No abdominal pain, she has a Londono catheter and we will repeat urinalysis as first sample looks traumatic Levothroid was stopped today. Hemodynamically stable. Leukocytosis trending down to 17.2k Sodium 135, creatinine 0.4. Liver enzymes slightly up. Chest x-ray showing worsening perihilar infiltrates She still on heparin drip. After round atypical from the bedside nurse that Patient wanted to be DO NOT RESUSCITATE and not resuscitated again, and that her son and daughters are aware with her wishes because the patient does not want to go through this again. Patient is not depressed with no suicidal ideations. Objective - Vital Signs Vital signs: Vital Signs Temp 98.5 F 05/03/21 08:00 Pulse 98 05/03/21 10:00 Resp 17 05/03/21 10:00 BP 99/66 05/03/21 10:00 Pulse Ox 94 L 05/03/21 10:00 Intake & Output 05/02/21 05/03/21 05/03/21 18:59 06:59 18:59 Intake Total 1630.827 625 263.863 Output Total 872 810 460 Balance 758.827 -185 -196.137 Weight 73 kg 72 kg Intake: IV 575 140 0.9 40 Dextrose 5% in Water 1, 575 100 000 ml @ 50 mls/hr IV . Q23H RAUL with Sodium Bicarb (1 Meq/ml) 150 ml Rx#:[id number] Intake, IV Titration 1630.827 50 123.863 Amount Amiodarone 450 mg In 250 Dextrose 5% in Water 250 ml @ 0.5 MG/MIN 16.667 mls/hr IV .Q15H RAUL Rx#: [id number] Dextrose 5% in Water 1, 550 50 000 ml @ 50 mls/hr IV . Q23H RAUL with Sodium Bicarb (1 Meq/ml) 150 ml Rx#:[id number] Heparin Sod,Pork in 0.45% 64.97 NaCl 25,000 unit In 0.45 % NaCl 1 250ml.bag @ 12 UNITS/KG/HR 8.76 mls/hr IV .Q24H RAUL Rx#: [id number] Heparin Sod,Pork in 0.45% 188.981 NaCl 25,000 unit In 0.45 % NaCl 1 250ml.bag @ 18 UNITS/KG/HR 12.655 mls/hr IV .[id number] RAUL Rx#: [id number] Norepinephrine 4 mg In 508.000 123.863 Sodium Chloride 0.9% 250 ml @ 0.05 MCG/KG/MIN 13. 907 mls/hr IV .[id number] RAUL Rx#:[id number] propofoL 1,000 mg In 68.876 Empty Bag 1 bag @ Titrate IV .Q0M RAUL Rx#: [id number] Oral 0 Output: Urine 872 810 460 Other: Voiding Method Indwelling Catheter Indwelling Catheter - Exam -GENERAL: The patient is alert and oriented x3, generally weak. HEENT: Pupils are round and equally reacting to light. EOMI. No scleral icterus. No conjunctival pallor. Normocephalic, atraumatic. No pharyngeal erythema. No thyromegaly. CARDIOVASCULAR: S1 and S2 present. No murmurs, rubs, or gallops. PULMONARY: Chest is clear to auscultation, no wheezing or crackles. ABDOMEN: Soft, nontender, nondistended, normoactive bowel sounds. No palpable organomegaly. Londono catheter is in place MUSCULOSKELETAL: No joint swelling or deformity. EXTREMITIES: No cyanosis, clubbing, or pedal edema. NEUROLOGICAL: Gross neurological examination did not reveal any focal deficits. SKIN: No rashes. no petechiae. - Labs CBC & Chem 7: 05/04/21 04:05 05/04/21 04:05 Labs: Abnormal Lab Results - Last 24 Hours (Table) 05/02/21 05/02/21 05/02/21 Range/Units 07:00 10:40 12:00 WBC (3.8-10.6) k/uL RBC (3.80-5.40) m/uL Neutrophils # (1.3-7.7) k/uL APTT (22.0-30.0) sec Sodium (137-145) mmol/L Creatinine (0.52-1.04) mg/dL Glucose (74-99) mg/dL POC Glucose (mg/dL) 138 H (75-99) mg/dL Plasma Lactic Acid Kory 3.1 H* (0.7-2.0) mmol/L AST (14-36) U/L ALT (4-34) U/L Total Protein (6.3-8.2) g/dL Albumin (3.5-5.0) g/dL Procalcitonin 3.14 H (0.02-0.09) ng/mL 05/02/21 05/02/21 05/02/21 Range/Units 16:27 17:16 21:00 WBC (3.8-10.6) k/uL RBC (3.80-5.40) m/uL Neutrophils # (1.3-7.7) k/uL APTT 46.8 H (22.0-30.0) sec Sodium (137-145) mmol/L Creatinine (0.52-1.04) mg/dL Glucose (74-99) mg/dL POC Glucose (mg/dL) 112 H 106 H (75-99) mg/dL Plasma Lactic Acid Kory (0.7-2.0) mmol/L AST (14-36) U/L ALT (4-34) U/L Total Protein (6.3-8.2) g/dL Albumin (3.5-5.0) g/dL Procalcitonin (0.02-0.09) ng/mL 05/03/21 05/03/21 05/03/21 Range/Units 04:01 04:01 04:01 WBC 17.2 H (3.8-10.6) k/uL RBC 3.74 L (3.80-5.40) m/uL Neutrophils # 14.9 H (1.3-7.7) k/uL APTT 44.6 H (22.0-30.0) sec Sodium 135 L (137-145) mmol/L Creatinine 0.47 L (0.52-1.04) mg/dL Glucose 111 H (74-99) mg/dL POC Glucose (mg/dL) (75-99) mg/dL Plasma Lactic Acid Kory (0.7-2.0) mmol/L AST 60 H (14-36) U/L ALT 44 H (4-34) U/L Total Protein 5.6 L (6.3-8.2) g/dL Albumin 3.2 L (3.5-5.0) g/dL Procalcitonin (0.02-0.09) ng/mL 05/03/21 Range/Units 06:58 WBC (3.8-10.6) k/uL RBC (3.80-5.40) m/uL Neutrophils # (1.3-7.7) k/uL APTT (22.0-30.0) sec Sodium (137-145) mmol/L Creatinine (0.52-1.04) mg/dL Glucose (74-99) mg/dL POC Glucose (mg/dL) 107 H (75-99) mg/dL Plasma Lactic Acid Kory (0.7-2.0) mmol/L AST (14-36) U/L ALT (4-34) U/L Total Protein (6.3-8.2) g/dL Albumin (3.5-5.0) g/dL Procalcitonin (0.02-0.09) ng/mL Assessment and Plan Assessment: Status post cardiac arrest, status post CPR prepped arriving to the hospital which was successful in restoring circulation. [place] is documented about 15 minutes Acute hypoxic respiratory failure status post intubation/extubation. Acute systolic CHF with cardiomyopathy and ejection fraction 20-25% leukocytosis, fever. No obvious source of infection. Most likely reactive in trending down Elevated lactic acid. With acidosis History of atrial fibrillation on pacemaker Plan: This is a pleasant 55 years old female who presents with cardiac arrest, sepsis. continue with heparin, amiodarone and sodium bicarbonate drip Pulmonary/critical care consult Cardiology consult Check urinalysis and procalcitonin (pending ) Labs and medication were reviewed.. Continue same treatment. Continue with symptomatic treatment. Resume home medication. Monitor lytes and vitals. DVT and GI prophylaxis. Further recommendations depends on the clinical course of the patient DVT prophylaxis: heparin GI Prophylaxis: Ppi patient's wants to be DO NOT RESUSCITATE Prognosis is guarded
--- NOTE | 2021-05-04 11:21 | P.PN ---
Subjective HISTORY OF PRESENTING ILLNESS This is a 55 year old female who presented to the hospital via EMS after a witness arrest. CPR was initiated immediately by family. Downtime was 15 minutes with 2 rounds of epineprhine and 2 external defibrillations. According to EMS documentation she was in vfib. She received 300 mg of amiodarone pre-hospital. She was intubated in ER. She is currently maintained on amiodarone infusion and heparin infusion. She was extubated this morning in ICU. Currently maintaining oxygen saturation on nasal cannula. Blood pressure 119/86 heart rate 87. She is complaining of pain in her sternum with any movement. She is still somewhat lethargic and not giving any meaningful history. Her daughter did call and states that her EF is somewhere between 18-25% since 2012. At that time she had a defibrillator placed ([email or web address]). She follows with a video surveillance technician at [facility]. 05/04/2021 Pt seen and examined sitting up in bed. She is more alert and talkative today. She continues to have significant sternal pain after CPR. Telemetry has been unremarkable. Awaiting Dr. Helms recommendations. Blood [id number] heart rate 72 afebrile and maintaining oxygen saturation on nasal cannula. Laboratory data reviewed, WBC 13.3, hemoglobin 11.3, platelets 177, sodium 136, potassium 4 creatinine 0.66. Chest x-ray reveals ongoing heart failure with improving patchy pulmonary edema. She continues to be maintained on IV diuretics. PHYSICAL EXAMINATION CONSTITUTIONAL: No apparent distress. HEENT: Head is normocephalic. Pupils are equal, round. Sclerae anicteric. Mucous membranes of the mouth are moist. No JVD. No carotid bruit. CHEST EXAMINATION: Lungs are clear to auscultation. Positive chest wall tenderness is noted on palpation or with deep breathing. Diminished bilaterally. HEART EXAMINATION: Regular rate and rhythm. S1, S2 heard. No murmurs, gallops or rub. EXTREMITIES: 2+ peripheral pulses, trace lower extremity edema and no calf tenderness. ASSESSMENT Cardiac arrest Hypoxic respiratory failure Leukocytosis Chronic systolic heart failure Possible v-fib arrest PLAN We still cannot received any records from [facility], we will request a third time today. Await Dr. Helms opinion and recommendations. Resume entresto today. Follow blood pressure closely. Increase aldactone to 25 mg daily and discontinue potassium supplementation. Further recommendations to follow based on clinical course. Nurse Practitioner note has been reviewed, I agree with a documented findings and plan of care. Patient was seen and examined. Objective - Vital Signs Vital signs: Vital Signs Temp 98.0 F 05/04/21 08:00 Pulse 72 05/04/21 11:00 Resp 17 05/04/21 11:00 BP 110/74 05/04/21 11:00 Pulse Ox 96 05/04/21 11:00 Intake & Output 05/03/21 05/04/21 05/04/21 18:59 06:59 18:59 Intake Total 572.637 442.52 80 Output Total 1360 800 460 Balance -787.363 -357.48 -380 Weight 73.2 kg Intake: IV 300 240 80 0.9 200 240 80 Dextrose 5% in Water 1, 100 000 ml @ 50 mls/hr IV . Q23H RAUL with Sodium Bicarb (1 Meq/ml) 150 ml Rx#:[id number] Intake, IV Titration 272.637 163.52 Amount Heparin Sod,Pork in 0.45% 148.774 163.52 NaCl 25,000 unit In 0.45 % NaCl 1 250ml.bag @ 12 UNITS/KG/HR 8.76 mls/hr IV .Q24H RAUL Rx#: [id number] Norepinephrine 4 mg In 123.863 Sodium Chloride 0.9% 250 ml @ 0.05 MCG/KG/MIN 13. 907 mls/hr IV .[id number] RAUL Rx#:[id number] Oral 39 Output: Urine 1360 800 460 Other: Voiding Method Indwelling Catheter Indwelling Catheter - Labs CBC & Chem 7: 05/04/21 04:05 05/04/21 04:05 Labs: Abnormal Lab Results - Last 24 Hours (Table) 05/03/21 05/03/21 05/04/21 Range/Units 11:33 16:31 04:05 WBC (3.8-10.6) k/uL RBC (3.80-5.40) m/uL Hgb (11.4-16.0) gm/dL Neutrophils # (1.3-7.7) k/uL APTT 38.7 H (22.0-30.0) sec Sodium (137-145) mmol/L Carbon Dioxide (22-30) mmol/L BUN (7-17) mg/dL Glucose (74-99) mg/dL POC Glucose (mg/dL) 129 H 123 H (75-99) mg/dL AST (14-36) U/L ALT (4-34) U/L Total Protein (6.3-8.2) g/dL Albumin (3.5-5.0) g/dL 05/04/21 05/04/21 05/04/21 Range/Units 04:05 04:05 06:52 WBC 13.3 H (3.8-10.6) k/uL RBC 3.70 L (3.80-5.40) m/uL Hgb 11.3 L (11.4-16.0) gm/dL Neutrophils # 11.3 H (1.3-7.7) k/uL APTT (22.0-30.0) sec Sodium 136 L (137-145) mmol/L Carbon Dioxide 31 H (22-30) mmol/L BUN 19 H (7-17) mg/dL Glucose 118 H (74-99) mg/dL POC Glucose (mg/dL) 115 H (75-99) mg/dL AST 44 H (14-36) U/L ALT 42 H (4-34) U/L Total Protein 5.5 L (6.3-8.2) g/dL Albumin 3.2 L (3.5-5.0) g/dL 05/04/21 Range/Units 09:41 WBC (3.8-10.6) k/uL RBC (3.80-5.40) m/uL Hgb (11.4-16.0) gm/dL Neutrophils # (1.3-7.7) k/uL APTT 51.3 H (22.0-30.0) sec Sodium (137-145) mmol/L Carbon Dioxide (22-30) mmol/L BUN (7-17) mg/dL Glucose (74-99) mg/dL POC Glucose (mg/dL) (75-99) mg/dL AST (14-36) U/L ALT (4-34) U/L Total Protein (6.3-8.2) g/dL Albumin (3.5-5.0) g/dL
[2021-05-04] MEDS: AMOXIC-POT CLAV 875-125MG 1 EACH TAB PO SCH ×2 (11:24→21:16)
[2021-05-04] MEDS: ONDANSETRON 4 MG/2 ML VIAL IVP PRN (11:26)
[2021-05-04 11:27] LABS: Glucose,Whole Blood 98 mg/dL (75-99)
--- NOTE | 2021-05-04 11:27 | P.PN ---
Subjective Progress Note Date: 05/04/21 Principal diagnosis: Out of hospital cardiac arrest This is a 55-year-old female brought in yesterday by EMS, patient is known to have history of chronic atrial fibrillation, cardiomyopathy, AICD placement, history of pacemaker implantation, patient had a witnessed cardiac arrest by family members, CPR was initiated by family, until EMS arrived, she received 2 rounds of epinephrine and 2 external defibrillations. Apparently the patient was in ventricular fibrillation at the time of EMS arrival. She also received 300 mg of amiodarone and she was brought into the ER where in she was immediately intubated upon arrival. Patient was maintained on amiodarone, and she was also placed on heparin. Patient was kept on mechanical ventilation overnight, and I was asked to see her on consultation. I evaluated the patient this morning, and she remains on mechanical ventilation, assist control rate was 18 tidal volume 500 FiO2 was down to 50%, PEEP was 15. and her ABG showed a pO2 of 338 pCO2 of 32 pH of 7.36. Chest x-ray showed significant improvement compared to last night x-ray, significant improvement in her pulmonary edema is noted. Patient was also noted to be on norepinephrine at 0.2 mcg/kg/m, she is off propofol, remains on heparin and amiodarone during my evaluation. After reviewing the ABG, chest x-ray, and the ventilator settings, I titrated her FiO2 down to 50%, PEEP down to 6, and shortly after went ahead and changed the patient to pressure support mode of mechanical ventilation, with rushes support of 8 and CPAP. Patient seemed to be tolerating this mode of ventilation well, she had decent tidal volumes in the range of 600+, and her rate was in the range of 18. Patient was awake, following all simple instructions, getting extremely agitated with the endotracheal tube and orogastric tube, hence after a short trial of pressure support and CPAP, went ahead and extubated the patient to a nasal cannula. Patient tolerated the extubation quite well while I was at bedside. WBC count this morning is 35.8 hemoglobin is 14.6. PTT is 104, on h eparin as per protocol. Electrolytes are normal bicarb is 17 BUN is 27 creatinine 0.88, troponin 0.279. Chest x-ray showed significant interval improvement in patient's pulmonary edema compared to her initial chest x-ray on admission. Reevaluated today on 05/03/2021, patient remains in the ICU, presently on 5 L nasal cannula with O2 saturation of 94%. Remains on bicarb drip which I have discontinued today since her bicarb level is normal. Chest x-ray shows evidence of pulmonary edema, and I started the patient on Lasix at 40 mg IV push every 8 hours. Patient continues to have paced rhythm. Her echocardiogram showed very poor LV function with ejection fraction of 20-25%. Her IV fluid is now at KVO, patient is asking the nurse to make sure that she is DO NOT RESUSCITATE CODE STATUS, patient feels generally weak tired, and she is very well aware of her condition and her cardiac status. Patient clearly stated that if she is to code again, she would not want to be resuscitated. Continues to have chest wall pain from CPR. And I have recommended Toradol today. WBC count today 17.2 hemoglobin is 11.6. PTT is 44.6 and a quite abnormal renal profile is normal Reevaluated today on 05/04/2021, patient remains in the ICU, she is doing much better and then. Considering her presentation. Patient is on 3 L nasal cannula with O2 sats of 96%, her IV fluid at KVO, remains on diuretics, and her chest x- ray showed significant improvement in her pulmonary edema. 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 Recommended resuming entresto, and increasing Aldactone. I did cut down the Lasix to 40 mg twice a day instead of 3 times a day. PTT is 51. Electrolytes are normal renal profile is normal CBC is normal Objective - Vital Signs Vital signs: Vital Signs Temp 98.0 F 05/04/21 08:00 Pulse 72 05/04/21 11:00 Resp 17 05/04/21 11:00 BP 110/74 05/04/21 11:00 Pulse Ox 96 05/04/21 11:00 Intake & Output 05/03/21 05/04/21 05/04/21 18:59 06:59 18:59 Intake Total 572.637 442.52 80 Output Total 1360 800 460 Balance -787.363 -357.48 -380 Weight 73.2 kg Intake: IV 300 240 80 0.9 200 240 80 Dextrose 5% in Water 1, 100 000 ml @ 50 mls/hr IV . Q23H RAUL with Sodium Bicarb (1 Meq/ml) 150 ml Rx#:[id number] Intake, IV Titration 272.637 163.52 Amount Heparin Sod,Pork in 0.45% 148.774 163.52 NaCl 25,000 unit In 0.45 % NaCl 1 250ml.bag @ 12 UNITS/KG/HR 8.76 mls/hr IV .Q24H RAUL Rx#: [id number] Norepinephrine 4 mg In 123.863 Sodium Chloride 0.9% 250 ml @ 0.05 MCG/KG/MIN 13. 907 mls/hr IV .[id number] RAUL Rx#:[id number] Oral 39 Output: Urine 1360 800 460 Other: Voiding Method Indwelling Catheter Indwelling Catheter - Exam Physical Exam: Revealed a 55-year-old female in no distress, on 3 L nasal cannula, asymptomatic except for chest wall pain Head: Atraumatic, normocephalic. HEENT:[Neck is supple.] [No neck masses.] [No thyromegaly.] [No JVD.] Moist mucous membranes. Chest: [Symmetrical chest expansion, diminished breath sounds at the bases, tenderness over the anterior chest wall from last CPR. Cardiac Exam: [Normal S1 and S2, no S3 gallop, no murmur.] Abdomen: [Soft, nontender, no megaly, no rebound, no guarding, normal bowel sounds.] Extremities: [No clubbing, no edema no cyanosis. Neurological Exam: [No focal neurologic deficit.] Alert and oriented 3, Musculoskeletal: No deformities noted limitation range of motion. Psychiatric: Depressed mood, blunted affect, normal mental status examination - Labs CBC & Chem 7: 05/04/21 04:05 05/04/21 04:05 Labs: Abnormal Lab Results - Last 24 Hours (Table) 05/03/21 05/03/21 05/04/21 Range/Units 11:33 16:31 04:05 WBC (3.8-10.6) k/uL RBC (3.80-5.40) m/uL Hgb (11.4-16.0) gm/dL Neutrophils # (1.3-7.7) k/uL APTT 38.7 H (22.0-30.0) sec Sodium (137-145) mmol/L Carbon Dioxide (22-30) mmol/L BUN (7-17) mg/dL Glucose (74-99) mg/dL POC Glucose (mg/dL) 129 H 123 H (75-99) mg/dL AST (14-36) U/L ALT (4-34) U/L Total Protein (6.3-8.2) g/dL Albumin (3.5-5.0) g/dL 05/04/21 05/04/21 05/04/21 Range/Units 04:05 04:05 06:52 WBC 13.3 H (3.8-10.6) k/uL RBC 3.70 L (3.80-5.40) m/uL Hgb 11.3 L (11.4-16.0) gm/dL Neutrophils # 11.3 H (1.3-7.7) k/uL APTT (22.0-30.0) sec Sodium 136 L (137-145) mmol/L Carbon Dioxide 31 H (22-30) mmol/L BUN 19 H (7-17) mg/dL Glucose 118 H (74-99) mg/dL POC Glucose (mg/dL) 115 H (75-99) mg/dL AST 44 H (14-36) U/L ALT 42 H (4-34) U/L Total Protein 5.5 L (6.3-8.2) g/dL Albumin 3.2 L (3.5-5.0) g/dL 05/04/21 Range/Units 09:41 WBC (3.8-10.6) k/uL RBC (3.80-5.40) m/uL Hgb (11.4-16.0) gm/dL Neutrophils # (1.3-7.7) k/uL APTT 51.3 H (22.0-30.0) sec Sodium (137-145) mmol/L Carbon Dioxide (22-30) mmol/L BUN (7-17) mg/dL Glucose (74-99) mg/dL POC Glucose (mg/dL) (75-99) mg/dL AST (14-36) U/L ALT (4-34) U/L Total Protein (6.3-8.2) g/dL Albumin (3.5-5.0) g/dL Assessment and Plan Assessment: Impression: Acute hypoxic respiratory failure secondary to cardiac arrest. Chronic systolic congestive heart failure with LV dysfunction. ventricular fibrillation arrest. Acute pulmonary edema secondary to acute on chronic systolic congestive heart failure Recommendation: Transfer patient to a cardiac floor with monitor. Decrease Lasix to 40 mg twice a day instead of 3 times a day. Continue Aldactone. Continue amiodarone. Continue heparin. Continue GI and DVT prophylaxis. Change CODE STATUS to DO NOT RESUSCITATE as per patient's own wishes. We'll continue to follow Time with Patient: Less than 30
[2021-05-04] MEDS: HEPARIN SOD,PORK IN 0.45% NACL 25,000 UNIT in 0.45% NACL 1 250ML.BAG IV SCH (16:05)
[2021-05-04 16:37] LABS: Glucose,Whole Blood 96 mg/dL (75-99)
--- NOTE | 2021-05-04 17:17 | P.PN ---
Subjective Progress Note Date: 05/04/21 Principal diagnosis: Status post cardiac arrest Acute hypoxic respiratory failure status post intubation/extubation. Acute systolic CHF with cardiomyopathy and ejection fraction 20-25% 55 years old female with past medical history of atrial fibrillation status post pacemaker Patient presents to the emergency room status post cardiac arrest. Records family were performing CPR upon EMS arrival. She was in V. fib and shocked 2, patient was given 2 epinephrine and 300 mg of amiodarone. Pulses were back before she was prepped to the emergency room. On arrival patient was tachycardic at 123, tachypnea catheter due to blood pressure was 140/76 and she was saturating 70%. At that time she opens her eyes to pain and Incomprehensible sounds. A documented downtown is about 15 minutes. Upon arrival patient was intubated because of hypoxia She was placed on heparin drip for suspected pulmonary embolism pulmonary and cardiology were consulted from emergency room. Antibiotics were started and emergency room. Also sodium bicarb drip and amiodarone were started. Labs showing leukocytosis of 35.8, rest of CBC is unremarkable. This morning pH 7.3 which is normal, pCO2 low at 32 and pO2 is 388. Sodium and potassium were normal, creatinine normal. Carbon dioxide is low at 17. Lactic acid is elevated Liver enzymes slightly elevated Also vital showing fever of 101.1. CTA of the chest showed no pulmonary embolism. Extensive pulmonary infiltrates that could lead to RDS EKG showing paced rhythm at 117. QTC is 585 Currently she still on heparin drip, amiodarone drip, sodium bicarbonate drip Objective - Vital Signs Vital signs: Vital Signs Temp 98.0 F 05/04/21 08:00 Pulse 72 05/04/21 11:00 Resp 17 05/04/21 11:00 BP 110/74 05/04/21 11:00 Pulse Ox 96 05/04/21 11:00 Intake & Output 05/03/21 05/04/21 05/04/21 18:59 06:59 18:59 Intake Total 572.637 442.52 100 Output Total 1360 800 520 Balance -787.363 -357.48 -420 Weight 73.2 kg Intake: IV 300 240 100 0.9 200 240 100 Dextrose 5% in Water 1, 100 000 ml @ 50 mls/hr IV . Q23H RAUL with Sodium Bicarb (1 Meq/ml) 150 ml Rx#:[id number] Intake, IV Titration 272.637 163.52 Amount Heparin Sod,Pork in 0.45% 148.774 163.52 NaCl 25,000 unit In 0.45 % NaCl 1 250ml.bag @ 12 UNITS/KG/HR 8.76 mls/hr IV .Q24H RAUL Rx#: [id number] Norepinephrine 4 mg In 123.863 Sodium Chloride 0.9% 250 ml @ 0.05 MCG/KG/MIN 13. 907 mls/hr IV .[id number] RAUL Rx#:[id number] Oral 39 Output: Urine 1360 800 520 Other: Voiding Method Indwelling Catheter Indwelling Catheter Indwelling Catheter - Exam -GENERAL: The patient is alert and oriented x3, generally weak. HEENT: Pupils are round and equally reacting to light. EOMI. No scleral icterus. No conjunctival pallor. Normocephalic, atraumatic. No pharyngeal erythema. No thyromegaly. CARDIOVASCULAR: S1 and S2 present. No murmurs, rubs, or gallops. PULMONARY: Chest is clear to auscultation, no wheezing or crackles. ABDOMEN: Soft, nontender, nondistended, normoactive bowel sounds. No palpable organomegaly. [place] catheter is in place MUSCULOSKELETAL: No joint swelling or deformity. EXTREMITIES: No cyanosis, clubbing, or pedal edema. NEUROLOGICAL: Gross neurological examination did not reveal any focal deficits. SKIN: No rashes. no petechiae. - Labs CBC & Chem 7: 05/04/21 04:05 05/04/21 04:05 Labs: Abnormal Lab Results - Last 24 Hours (Table) 05/03/21 05/04/21 05/04/21 Range/Units 16:31 04:05 04:05 WBC 13.3 H (3.8-10.6) k/uL RBC 3.70 L (3.80-5.40) m/uL Hgb 11.3 L (11.4-16.0) gm/dL Neutrophils # 11.3 H (1.3-7.7) k/uL APTT 38.7 H (22.0-30.0) sec Sodium (137-145) mmol/L Carbon Dioxide (22-30) mmol/L BUN (7-17) mg/dL Glucose (74-99) mg/dL POC Glucose (mg/dL) 123 H (75-99) mg/dL AST (14-36) U/L ALT (4-34) U/L Total Protein (6.3-8.2) g/dL Albumin (3.5-5.0) g/dL 05/04/21 05/04/21 05/04/21 Range/Units 04:05 06:52 09:41 WBC (3.8-10.6) k/uL RBC (3.80-5.40) m/uL Hgb (11.4-16.0) gm/dL Neutrophils # (1.3-7.7) k/uL APTT 51.3 H (22.0-30.0) sec Sodium 136 L (137-145) mmol/L Carbon Dioxide 31 H (22-30) mmol/L BUN 19 H (7-17) mg/dL Glucose 118 H (74-99) mg/dL POC Glucose (mg/dL) 115 H (75-99) mg/dL AST 44 H (14-36) U/L ALT 42 H (4-34) U/L Total Protein 5.5 L (6.3-8.2) g/dL Albumin 3.2 L (3.5-5.0) g/dL Assessment and Plan Assessment: Status post cardiac arrest, status post CPR prepped arriving to the hospital w [facility] was successful in restoring circulation. [place] is documented about 15 minutes Acute hypoxic respiratory failure status post intubation/extubation. Acute systolic CHF with cardiomyopathy and ejection fraction 20-25% leukocytosis, fever. No obvious source of infection. Most likely reactive in trending down Elevated lactic acid. With acidosis History of atrial fibrillation on pacemaker Plan: This is a pleasant 55 years old female who presents with cardiac arrest, sepsis. continue with heparin, amiodarone and sodium bicarbonate drip Pulmonary/critical care consult Cardiology consult Check urinalysis and procalcitonin (pending ) Labs and medication were reviewed.. Continue same treatment. Continue with symptomatic treatment. Resume home medication. Monitor lytes and vitals. DVT and GI prophylaxis. Further recommendations depends on the clinical course of the patient DVT prophylaxis: heparin GI Prophylaxis: Ppi patient's wants to be DO NOT RESUSCITATE Prognosis is guarded
[2021-05-04 21:02] LABS: Glucose,Whole Blood 97 mg/dL (75-99)
[2021-05-05] MEDS: KETOROLAC 15 MG/ML 1 ML VIAL IVP SCH ×4 (03:30→21:12)
[2021-05-05 04:40] LABS: Basophils % (A) 0 %; Eosinophils # (A) 0.2 k/uL (0-0.7); Eosinophils % (A) 1 %; HCT 35.5 % (34.0-46.0); HGB 11.8 gm/dL (11.4-16.0); Lymphocytes # (A) 1.3 k/uL (1.0-4.8); Lymphocytes % (A) 12 %; MCH 30.8 pg (25.0-35.0); MCHC 33.2 g/dL (31.0-37.0); MCV 92.9 fL (80.0-100.0); Mean Platelet Volume 7.9; Monocytes # (A) 0.4 k/uL (0-1.0); Monocytes % (A) 4 %; Neutrophils # (A) 8.9 k/uL (1.3-7.7); Neutrophils % (A) 81 %; Platelet Count 203 k/uL (150-450); RBC 3.82 m/uL (3.80-5.40); RDW 13.4 % (11.5-15.5)
[2021-05-05 05:06] LABS: ALT 44 U/L (4-34); AST 41 U/L (14-36); African American GFR (CKD) >90 (>60 ml/min/1.73 sqM); Albumin 3.3 g/dL (3.5-5.0); Alkaline Phosphatase 97 U/L (38-126); Anion Gap 5 mmol/L; Blood Urea Nitrogen 20 mg/dL (7-17); Calcium 9.3 mg/dL (8.4-10.2); Carbon Dioxide 30 mmol/L (22-30); Chloride 100 mmol/L (98-107); Glucose 86 mg/dL (74-99); Non-African American GFR(CKD) >90 (>60 ml/min/1.73 sqM); Potassium 3.8 mmol/L (3.5-5.1); Sodium 135 mmol/L (137-145); Total Bilirubin 1.6 mg/dL (0.2-1.3); Total Protein 5.7 g/dL (6.3-8.2)
[2021-05-05] MEDS: HEPARIN SODIUM 1,000 UN/ML (10ML VL) IV PRN (05:41)
[2021-05-05] MEDS: POTASSIUM CHLORIDE ER 20 MEQ TAB.ER PO SCH ×2 (05:45→06:33)
[2021-05-05] MEDS: INSULIN ASPART (NovoLOG) 100 UNIT/ML VIAL SQ SCH (06:37)
[2021-05-05 06:38] LABS: Glucose,Whole Blood 93 mg/dL (75-99)
[2021-05-05] MEDS: FUROSEMIDE 10 MG/ML 4 ML VIAL IV SCH ×3 (09:53→23:38)
[2021-05-05] MEDS: PANTOPRAZOLE 40 MG/10 ML VIAL IV SCH (09:53)
[2021-05-05] MEDS: SACUBITRIL/VALSARTAN 24 MG-26 MG TABLET PO SCH ×2 (09:54→21:12)
[2021-05-05] MEDS: AMIODARONE 200 MG TAB PO SCH ×2 (09:54→21:05)
[2021-05-05] MEDS: SPIRONOLACTONE 25 MG TAB PO SCH (09:54)
[2021-05-05] MEDS: BACITRACIN OINT 1 EACH PACKET TOPICAL SCH ×3 (09:55→21:12)
[2021-05-05] MEDS: AMOXIC-POT CLAV 875-125MG 1 EACH TAB PO SCH ×2 (09:55→21:12)
[2021-05-05 11:43] LABS: Glucose,Whole Blood 91 mg/dL (75-99)
--- NOTE | 2021-05-05 12:27 | XR ---
EXAMINATION TYPE: XR chest 1V portable DATE OF EXAM: 05/05/2021 COMPARISON: 05/04/2021 INDICATION: Congestion TECHNIQUE: Single frontal view of the chest is obtained. FINDINGS: The heart size is mildly prominent. The pulmonary vasculature is prominent. Diffuse increased lung markings are present. IMPRESSION: 1. Clinical correlation recommended for congestive heart failure
--- NOTE | 2021-05-05 13:12 | P.PN ---
Subjective Progress Note Date: 05/05/21 Principal diagnosis: Out of hospital cardiac arrest This is a 55-year-old female brought in yesterday by EMS, patient is known to have history of chronic atrial fibrillation, cardiomyopathy, AICD placement, history of pacemaker implantation, patient had a witnessed cardiac arrest by family members, CPR was initiated by family, until EMS arrived, she received 2 rounds of epinephrine and 2 external defibrillations. Apparently the patient was in ventricular fibrillation at the time of EMS arrival. She also received 300 mg of amiodarone and she was brought into the ER where in she was immediately intubated upon arrival. Patient was maintained on amiodarone, and she was also placed on heparin. Patient was kept on mechanical ventilation overnight, and I was asked to see her on consultation. I evaluated the patient this morning, and she remains on mechanical ventilation, assist control rate was 18 tidal volume 500 FiO2 was down to 50%, PEEP was 15. and her ABG showed a pO2 of 338 pCO2 of 32 pH of 7.36. Chest x-ray showed significant improvement compared to last night x-ray, significant improvement in her pulmonary edema is noted. Patient was also noted to be on norepinephrine at 0.2 mcg/kg/m, she is off propofol, remains on heparin and amiodarone during my evaluation. After reviewing the ABG, chest x-ray, and the ventilator settings, I titrated her FiO2 down to 50%, PEEP down to 6, and shortly after went ahead and changed the patient to pressure support mode of mechanical ventilation, with rushes support of 8 and CPAP. Patient seemed to be tolerating this mode of ventilation well, she had decent tidal volumes in the range of 600+, and her rate was in the range of 18. Patient was awake, following all simple instructions, getting extremely agitated with the endotracheal tube and orogastric tube, hence after a short trial of pressure support and CPAP, went ahead and extubated the patient to a nasal cannula. Patient tolerated the extubation quite well while I was at bedside. WBC count this morning is 35.8 hemoglobin is 14.6. PTT is 104, on h eparin as per protocol. Electrolytes are normal bicarb is 17 BUN is 27 creatinine 0.88, troponin 0.279. Chest x-ray showed significant interval improvement in patient's pulmonary edema compared to her initial chest x-ray on admission. Reevaluated today on 05/03/2021, patient remains in the ICU, presently on 5 L nasal cannula with O2 saturation of 94%. Remains on bicarb drip which I have discontinued today since her bicarb level is normal. Chest x-ray shows evidence of pulmonary edema, and I started the patient on Lasix at 40 mg IV push every 8 hours. Patient continues to have paced rhythm. Her echocardiogram showed very poor LV function with ejection fraction of 20-25%. Her IV fluid is now at KVO, patient is asking the nurse to make sure that she is DO NOT RESUSCITATE CODE STATUS, patient feels generally weak tired, and she is very well aware of her condition and her cardiac status. Patient clearly stated that if she is to code again, she would not want to be resuscitated. Continues to have chest wall pain from CPR. And I have recommended Toradol today. WBC count today 17.2 hemoglobin is 11.6. PTT is 44.6 and a quite abnormal renal profile is normal Reevaluated today on 05/04/2021, patient remains in the ICU, she is doing much better and then. Considering her presentation. Patient is on 3 L nasal cannula with O2 sats of 96%, her IV fluid at KVO, remains on diuretics, and her chest x- ray showed significant improvement in her pulmonary edema. Patient remains fully paced, she has a paced rhythm, remains on multiple cardiac meds including oral amiodarone, and cardiology is waiting to hear from the [address] [place] [address] and the opinion of the perfect binder setter. Recommended resuming entresto, and increasing Aldactone. I did cut down the Lasix to 40 mg twice a day instead of 3 times a day. PTT is 51. Electrolytes are normal renal profile is normal CBC is normal Reevaluated today on 05/05/2021, remains in the ICU, patient is doing fairly well, remains on 2 L nasal cannula, remains on diuretics and today increased the dose of Lasix again since her chest x-ray is showing worsening pulmonary edema. Patient had an ejection fraction of less than 20%, overall she is doing better than expected considering her out of hospital cardiac arrest. Labs today were reviewed, she had a relatively normal CBC and the relatively normal electrolytes, normal renal profile. Objective - Vital Signs Vital signs: Vital Signs Temp 98.4 F 05/05/21 04:00 Pulse 64 05/05/21 12:00 Resp 13 05/05/21 12:00 BP 120/78 05/05/21 12:00 Pulse Ox 95 05/05/21 12:00 Intake & Output 05/04/21 05/05/21 05/05/21 18:59 06:59 18:59 Intake Total 286.48 337.118 Output Total 695 1000 1700 Balance -408.52 -662.882 -1700 Weight 72.4 kg Intake: IV 200 200 0.9 200 200 Intake, IV Titration 86.48 137.118 Amount Heparin Sod,Pork in 0.45% 86.48 137.118 NaCl 25,000 unit In 0.45 % NaCl 1 250ml.bag @ 12 UNITS/KG/HR 8.76 mls/hr IV .Q24H [facility] Rx#: [id number] Output: Urine 695 1000 1700 Other: Voiding Method Indwelling Catheter Indwelling Catheter Indwelling Catheter - Exam Physical Exam: Revealed a 55-year-old female in no distress, on 3 L nasal cannula, Head: Atraumatic, normocephalic. HEENT:[Neck is supple.] [No neck masses.] [No thyromegaly.] [No JVD.] Moist muc ous membranes. Chest: [Symmetrical chest expansion, diminished breath sounds at the bases, tenderness over the anterior chest wall Cardiac Exam: [Normal S1 and S2, no S3 gallop, no murmur.] Abdomen: [Soft, nontender, no megaly, no rebound, no guarding, normal bowel sounds.] Extremities: [No clubbing, no edema no cyanosis. Neurological Exam: [No focal neurologic deficit.] Alert and oriented 3, Musculoskeletal: No deformities noted limitation range of motion. Psychiatric: Depressed mood, blunted affect, normal mental status examination - Labs CBC & Chem 7: 05/05/21 04:17 05/05/21 04:17 Labs: Abnormal Lab Results - Last 24 Hours (Table) 05/05/21 05/05/21 05/05/21 Range/Units 04:17 04:17 04:17 WBC 11.0 H (3.8-10.6) k/uL Neutrophils # 8.9 H (1.3-7.7) k/uL APTT 38.4 H (22.0-30.0) sec Sodium 135 L (137-145) mmol/L BUN 20 H (7-17) mg/dL Total Bilirubin 1.6 H (0.2-1.3) mg/dL AST 41 H (14-36) U/L ALT 44 H (4-34) U/L Total Protein 5.7 L (6.3-8.2) g/dL Albumin 3.3 L (3.5-5.0) g/dL 05/05/21 Range/Units 11:50 WBC (3.8-10.6) k/uL Neutrophils # (1.3-7.7) k/uL APTT 46.1 H (22.0-30.0) sec Sodium (137-145) mmol/L BUN (7-17) mg/dL Total Bilirubin (0.2-1.3) mg/dL AST (14-36) U/L ALT (4-34) U/L Total Protein (6.3-8.2) g/dL Albumin (3.5-5.0) g/dL Assessment and Plan Assessment: Impression: Acute hypoxic respiratory failure secondary to cardiac arrest. Chronic systolic congestive heart failure with LV dysfunction. ventricular fibrillation arrest. Acute pulmonary edema secondary to acute on chronic systolic congestive heart failure Recommendation: Transfer patient to a cardiac floor with monitor. Increase Lasix again to 40 mg IV push 3 times a day. Continue Aldactone. Continue oral amiodarone. Continue heparin. Continue GI and DVT prophylaxis. Change CODE STATUS to DO NOT RESUSCITATE as per patient's own wishes. We'll continue to follow Time with Patient: Less than 30
[2021-05-05] MEDS: HEPARIN SOD,PORK IN 0.45% NACL 25,000 UNIT in 0.45% NACL 1 250ML.BAG IV SCH (13:48)
--- NOTE | 2021-05-05 16:03 | P.PN ---
Subjective Progress Note Date: 05/05/21 This 55-year-old female with known case of heart myopathy and chronic CHF was admitted with cardiac arrest with documented ventricular fibrillation. Patient had prolonged CPR. Patient has recovered well and seemed to be alert and oriented. Patient chest x-ray showed pulmonary edema. Patient is on IV di uretics and responding very well. She was put on an test and also Aldactone along with Lasix. Patient is also on amiodarone. Apparently patient had some problems with visual disturbance in the past. We will get EP evaluation for management of her arrhythmias. Patient is reluctant to take amiodarone. Patient was told that it is temporary until seen and evaluated by heater helper forge. Patient have significant pain related to CPR. Patient to be transferred to telemetry unit Objective - Vital Signs Vital signs: Vital Signs Temp 98.4 F 05/05/21 04:00 Pulse 64 05/05/21 12:00 Resp 13 05/05/21 12:00 BP 120/78 05/05/21 12:00 Pulse Ox 95 05/05/21 12:00 Intake & Output 05/04/21 05/05/21 05/05/21 18:59 06:59 18:59 Intake Total 286.48 337.118 Output Total 695 1000 1700 Balance -408.52 -662.882 -1700 Weight 72.4 kg Intake: IV 200 200 0.9 200 200 Intake, IV Titration 86.48 137.118 Amount Heparin Sod,Pork in 0.45% 86.48 137.118 NaCl 25,000 unit In 0.45 % NaCl 1 250ml.bag @ 12 UNITS/KG/HR 8.76 mls/hr IV .Q24H [facility] Rx#: [id number] Output: Urine 695 1000 1700 Other: Voiding Method Indwelling Catheter Indwelling Catheter Indwelling Catheter - Exam GENERAL EXAM: Patient is alert and oriented and appears to be weak and frail HEENT: Normocephalic. Normal reaction of pupils, equal size, normal range of extraocular motion. No erythema or exudates in throat. NECK: No masses, no nuchal rigidity. CHEST: No chest wall deformity. LUNGS: Diminished air exchange HEART: S1 and S2 normal ABDOMEN: No hepatosplenomegaly, normal bowel sounds, no guarding or rigidity. SKIN: No rashes CENTRAL NERVOUS SYSTEM: No focal deficits. EXTREMITIES: No cyanosis, clubbing or edema. - Labs CBC & Chem 7: 05/05/21 04:17 05/05/21 04:17 Labs: Abnormal Lab Results - Last 24 Hours (Table) 05/05/21 05/05/21 05/05/21 Range/Units 04:17 04:17 04:17 WBC 11.0 H (3.8-10.6) k/uL Neutrophils # 8.9 H (1.3-7.7) k/uL APTT 38.4 H (22.0-30.0) sec Sodium 135 L (137-145) mmol/L BUN 20 H (7-17) mg/dL Total Bilirubin 1.6 H (0.2-1.3) mg/dL AST 41 H (14-36) U/L ALT 44 H (4-34) U/L Total Protein 5.7 L (6.3-8.2) g/dL Albumin 3.3 L (3.5-5.0) g/dL 05/05/21 Range/Units 11:50 WBC (3.8-10.6) k/uL Neutrophils # (1.3-7.7) k/uL APTT 46.1 H (22.0-30.0) sec Sodium (137-145) mmol/L BUN (7-17) mg/dL Total Bilirubin (0.2-1.3) mg/dL AST (14-36) U/L ALT (4-34) U/L Total Protein (6.3-8.2) g/dL Albumin (3.5-5.0) g/dL Assessment and Plan (1) Non-ischemic cardiomyopathy Current Visit: Yes Status: Acute Code(s): I42.8 - OTHER CARDIOMYOPATHIES SNOMED Code(s): 31481520 (2) Cardiac arrest Current Visit: Yes Status: Acute Code(s): I46.9 - CARDIAC ARREST, CAUSE UNSP ECIFIED SNOMED Code(s): 924858252 (3) History of automatic internal cardiac defibrillator (AICD) Current Visit: Yes Status: Acute Code(s): Z95.810 - PRESENCE OF AUTOMATIC (IMPLANTABLE) CARDIAC DEFIBRILLATOR SNOMED Code(s): 122736445 (4) Pulmonary edema Current Visit: Yes Status: Acute Code(s): J81.1 - CHRONIC PULMONARY EDEMA SNOMED Code(s): 89625615 Plan: Continue current medical therapy. The dose of the Lasix was increased. Renal function remains stable. No further episodes of ventricular fibrillation/arrhythmias. Waiting for electrophysiology evaluation. Dr. Helms has wasn't performed 3 days ago.
--- NOTE | 2021-05-05 17:33 | P.PN ---
Subjective Progress Note Date: 05/05/21 Principal diagnosis: Status post cardiac arrest Acute hypoxic respiratory failure status post intubation/extubation. Acute systolic CHF with cardiomyopathy and ejection fraction 20-25% 55 years old female with past medical history of atrial fibrillation status post pacemaker Patient presents to the emergency room status post cardiac arrest. Records family were performing CPR upon EMS arrival. She was in V. fib and shocked 2, patient was given 2 epinephrine and 300 mg of amiodarone. Pulses were back before she was prepped to the emergency room. On arrival patient was tachycardic at 123, tachypnea catheter due to blood pressure was 140/76 and she was saturating 70%. At that time she opens her eyes to pain and Incomprehensible sounds. A documented downtown is about 15 minutes. Upon arrival patient was intubated because of hypoxia She was placed on heparin drip for suspected pulmonary embolism pulmonary and cardiology were consulted from emergency room. Antibiotics were started and emergency room. Also sodium bicarb drip and amiodarone were started. Labs showing leukocytosis of 35.8, rest of CBC is unremarkable. This morning pH 7.3 which is normal, pCO2 low at 32 and pO2 is 388. Sodium and potassium were normal, creatinine normal. Carbon dioxide is low at 17. Lactic acid is elevated Liver enzymes slightly elevated Also vital showing fever of 101.1. CTA of the chest showed no pulmonary embolism. Extensive pulmonary infiltrates that could lead to RDS EKG showing paced rhythm at 117. QTC is 585 Currently she still on heparin drip, amiodarone drip, sodium bicarbonate drip 05/05/2021, remains in the ICU, patient is doing fairly well, remains on 2 L nasal cannula, remains on diuretics and today increased the dose of Lasix again since her chest x-ray is showing worsening pulmonary edema. Patient had an ejection fraction of less than 20%, overall she is doing better than expected considering her out of hospital cardiac arrest. Labs today were reviewed, she had a relatively normal CBC and the relatively normal electrolytes, normal renal profile. Transfer patient to a cardiac floor with monitor. Increase Lasix again to 40 mg IV push 3 times a day. Continue Aldactone. Continue oral amiodarone. Continue heparin. Continue GI and DVT prophylaxis. Change CODE STATUS to DO NOT RESUSCITATE as per patient's own wishes. Objective - Vital Signs Vital signs: Vital Signs Temp 98.3 F 05/05/21 16:00 Pulse 66 05/05/21 16:00 Resp 21 05/05/21 16:00 BP 99/65 05/05/21 16:00 Pulse Ox 96 05/05/21 16:00 Intake & Output 05/04/21 05/05/21 05/05/21 18:59 06:59 18:59 Intake Total 286.48 337.118 500 Output Total 695 1000 2400 Balance -408.52 -662.882 -1900 Weight 72.4 kg Intake: IV 200 200 0.9 200 200 Intake, IV Titration 86.48 137.118 Amount Heparin Sod,Pork in 0.45% 86.48 137.118 NaCl 25,000 unit In 0.45 % NaCl 1 250ml.bag @ 12 UNITS/KG/HR 8.76 mls/hr IV .Q24H [facility] Rx#: [id number] Oral 500 Output: Urine 695 1000 2400 Other: Voiding Method Indwelling Catheter Indwelling Catheter Indwelling Catheter - Exam -GENERAL: The patient is alert and oriented x3, generally weak. HEENT: Pupils are round and equally reacting to light. EOMI. No scleral icterus. No conjunctival pallor. Normocephalic, atraumatic. No pharyngeal erythema. No thyromegaly. CARDIOVASCULAR: S1 and S2 present. No murmurs, rubs, or gallops. PULMONARY: Chest is clear to auscultation, no wheezing or crackles. ABDOMEN: Soft, nontender, nondistended, normoactive bowel sounds. No palpable organomegaly. [place] catheter is in place MUSCULOSKELETAL: No joint swelling or deformity. EXTREMITIES: No cyanosis, clubbing, or pedal edema. NEUROLOGICAL: Gross neurological examination did not reveal any focal deficits. SKIN: No rashes. no petechiae. - Labs CBC & Chem 7: 05/05/21 04:17 05/05/21 04:17 Labs: Abnormal Lab Results - Last 24 Hours (Table) 05/05/21 05/05/21 05/05/21 Range/Units 04:17 04:17 04:17 WBC 11.0 H (3.8-10.6) k/uL Neutrophils # 8.9 H (1.3-7.7) k/uL APTT 38.4 H (22.0-30.0) sec Sodium 135 L (137-145) mmol/L BUN 20 H (7-17) mg/dL Total Bilirubin 1.6 H (0.2-1.3) mg/dL AST 41 H (14-36) U/L ALT 44 H (4-34) U/L Total Protein 5.7 L (6.3-8.2) g/dL Albumin 3.3 L (3.5-5.0) g/dL 05/05/21 Range/Units 11:50 WBC (3.8-10.6) k/uL Neutrophils # (1.3-7.7) k/uL APTT 46.1 H (22.0-30.0) sec Sodium (137-145) mmol/L BUN (7-17) mg/dL Total Bilirubin (0.2-1.3) mg/dL AST (14-36) U/L ALT (4-34) U/L Total Protein (6.3-8.2) g/dL Albumin (3.5-5.0) g/dL Assessment and Plan Assessment: Status post cardiac arrest, status post CPR prepped arriving to the hospital which was successful in restoring circulation. [place] is documented about 15 minutes Acute hypoxic respiratory failure status post intubation/extubation. Acute systolic CHF with cardiomyopathy and ejection fraction 20-25% leukocytosis, fever. No obvious source of infection. Most likely reactive in trending down Elevated lactic acid. With acidosis History of atrial fibrillation on pacemaker Plan: This is a pleasant 55 years old female who presents with cardiac arrest, sepsis. continue with heparin, amiodarone and sodium bicarbonate drip Pulmonary/critical care consult Cardiology consult Check urinalysis and procalcitonin (pending ) Labs and medication were reviewed.. Continue same treatment. Continue with symptomatic treatment. Resume home medication. Monitor lytes and vitals. DVT and GI prophylaxis. Further recommendations depends on the clinical course of the patient DVT prophylaxis: heparin GI Prophylaxis: Ppi patient's wants to be DO NOT RESUSCITATE Prognosis is guarded
[2021-05-06] MEDS: KETOROLAC 15 MG/ML 1 ML VIAL IVP SCH ×4 (04:27→20:32)
[2021-05-06 06:06] LABS: Basophils % (A) 1 %; Eosinophils # (A) 0.3 k/uL (0-0.7); Eosinophils % (A) 4 %; HCT 37.3 % (34.0-46.0); HGB 12.4 gm/dL (11.4-16.0); Lymphocytes # (A) 1.3 k/uL (1.0-4.8); Lymphocytes % (A) 16 %; MCH 30.7 pg (25.0-35.0); MCHC 33.2 g/dL (31.0-37.0); MCV 92.4 fL (80.0-100.0); Monocytes # (A) 0.5 k/uL (0-1.0); Monocytes % (A) 6 %; Neutrophils # (A) 5.4 k/uL (1.3-7.7); Neutrophils % (A) 70 %; Platelet Count 226 k/uL (150-450); RBC 4.03 m/uL (3.80-5.40); RDW 13.2 % (11.5-15.5); WBC 7.7 k/uL (3.8-10.6)
[2021-05-06 06:23] LABS: ALT 46 U/L (4-34); AST 37 U/L (14-36); African American GFR (CKD) >90 (>60 ml/min/1.73 sqM); Albumin 3.4 g/dL (3.5-5.0); Alkaline Phosphatase 89 U/L (38-126); Anion Gap 6 mmol/L; Blood Urea Nitrogen 18 mg/dL (7-17); Calcium 9.7 mg/dL (8.4-10.2); Carbon Dioxide 32 mmol/L (22-30); Chloride 100 mmol/L (98-107); Glucose 93 mg/dL (74-99); Non-African American GFR(CKD) >90 (>60 ml/min/1.73 sqM); Potassium 3.7 mmol/L (3.5-5.1); Sodium 138 mmol/L (137-145); Total Bilirubin 1.3 mg/dL (0.2-1.3); Total Protein 5.8 g/dL (6.3-8.2)
[2021-05-06] MEDS: HEPARIN SODIUM 1,000 UN/ML (10ML VL) IV PRN (06:34)
[2021-05-06] MEDS ORDERED: POTASSIUM CHLORIDE ER 20 MEQ TAB.ER PO SCH (07:00)
[2021-05-06] MEDS: FUROSEMIDE 10 MG/ML 4 ML VIAL IV SCH ×3 (09:24→23:39)
[2021-05-06] MEDS: SPIRONOLACTONE 25 MG TAB PO SCH (09:24)
[2021-05-06] MEDS: PANTOPRAZOLE 40 MG/10 ML VIAL IV SCH (09:24)
[2021-05-06] MEDS: AMOXIC-POT CLAV 875-125MG 1 EACH TAB PO SCH ×2 (09:25→20:32)
[2021-05-06] MEDS: BACITRACIN OINT 1 EACH PACKET TOPICAL SCH ×3 (09:26→20:32)
[2021-05-06] MEDS: SACUBITRIL/VALSARTAN 24 MG-26 MG TABLET PO SCH ×2 (09:26→20:32)
[2021-05-06] MEDS: AMIODARONE 200 MG TAB PO SCH ×2 (09:26→20:27)
--- NOTE | 2021-05-06 09:52 | XR ---
EXAMINATION TYPE: XR chest 1V portable DATE OF EXAM: 05/06/2021 COMPARISON: 05/05/2021 INDICATION: Congestion TECHNIQUE: Single frontal view of the chest is obtained. FINDINGS: The heart size is large. The pulmonary vasculature is dominant. There is silhouetting of the left diaphragm and poor visualization of the retrocardiac region. Braided Rug Maker ior infiltrate may be present. Technique overlies left chest. IMPRESSION: 1. Improving diffuse lung infiltrates. Left upper lobe and retrocardiac infiltrates appear to Jessica. Continued follow-up is recommended. 2. Cardiomegaly.
--- NOTE | 2021-05-06 11:11 | P.PN ---
Subjective Progress Note Date: 05/06/21 Principal diagnosis: Out of the hospital cardiac arrest This is a 55-year-old female brought in yesterday by EMS, patient is known to have history of chronic atrial fibrillation, cardiomyopathy, AICD placement, history of pacemaker implantation, patient had a witnessed cardiac arrest by family members, CPR was initiated by family, until EMS arrived, she received 2 rounds of epinephrine and 2 external defibrillations. Apparently the patient was in ventricular fibrillation at the time of EMS arrival. She also received 300 mg of amiodarone and she was brought into the ER where in she was immediately intubated upon arrival. Patient was maintained on amiodarone, and she was also placed on heparin. Patient was kept on mechanical ventilation overnight, and I was asked to see her on consultation. I evaluated the patient this morning, and she remains on mechanical ventilation, assist control rate was 18 tidal volume 500 FiO2 was down to 50%, PEEP was 15. and her ABG showed a pO2 of 338 pCO2 of 32 pH of 7.36. Chest x-ray showed significant improvement compared to last night x-ray, significant improvement in her pulmonary edema is noted. Patient was also noted to be on norepinephrine at 0.2 mcg/kg/m, she is off propofol, remains on heparin and amiodarone during my evaluation. After reviewing the ABG, chest x-ray, and the ventilator settings, I titrated her FiO2 down to 50%, PEEP down to 6, and shortly after went ahead and changed the patient to pressure support mode of mechanical ventilation, with rushes support of 8 and CPAP. Patient seemed to be tolerating this mode of ventilation well, she had decent tidal volumes in the range of 600+, and her rate was in the range of 18. Patient was awake, following all simple instructions, getting extremely agitated with the endotracheal tube and orogastric tube, hence after a short trial of pressure support and CPAP, went ahead and extubated the patient to a nasal cannula. Patient tolerated the extubation quite well while I was at bedside. WBC count this morning is 35.8 hemoglobin is 14.6. PTT is 104, on heparin as per protocol. Electrolytes are normal bicarb is 17 BUN is 27 creatinine 0.88, troponin 0.279. Chest x-ray showed significant interval improvement in patient's pulmonary edema compared to her initial chest x-ray on admission. Reevaluated today on 05/03/2021, patient remains in the ICU, presently on 5 L nasal cannula with O2 saturation of 94%. Remains on bicarb drip which I have discontinued today since her bicarb level is normal. Chest x-ray shows evidence of pulmonary edema, and I started the patient on Lasix at 40 mg IV push every 8 hours. Patient continues to have paced rhythm. Her echocardiogram showed very poor LV function with ejection fraction of 20-25%. Her IV fluid is now at KVO, patient is asking the nurse to make sure that she is DO NOT RESUSCITATE CODE STATUS, patient feels generally weak tired, and she is very well aware of her condition and her cardiac status. Patient clearly stated that if she is to code again, she would not want to be resuscitated. Continues to have chest wall pain from CPR. And I have recommended Toradol today. WBC count today 17.2 hemoglobin is 11.6. PTT is 44.6 and a quite abnormal renal profile is normal Reevaluated today on 05/04/2021, patient remains in the ICU, she is doing much better and then. Considering her presentation. Patient is on 3 L nasal cannula with O2 sats of 96%, her IV fluid at KVO, remains on diuretics, and her chest x- ray showed significant improvement in her pulmonary edema. Patient remains f ully paced, she has a paced rhythm, remains on multiple cardiac meds including oral amiodarone, and cardiology is waiting to hear from the [address] [place] [address] and the opinion of the entrepreneur. Recommended resuming entresto, and increasing Aldactone. I did cut down the Lasix to 40 mg twice a day instead of 3 times a day. PTT is 51. Electrolytes are normal renal profile is normal CBC is normal Reevaluated today on 05/05/2021, remains in the ICU, patient is doing fairly well, remains on 2 L nasal cannula, remains on diuretics and today increased the dose of Lasix again since her chest x-ray is showing worsening pulmonary edema. Patient had an ejection fraction of less than 20%, overall she is doing better than expected considering her out of hospital cardiac arrest. Labs today were reviewed, she had a relatively normal CBC and the relatively normal electrolytes, normal renal profile. 05/06/2021 patient seen in follow-up in the intensive care unit. She is awake and alert, in no acute distress, resting comfortably in bed, she is currently on 3 L of oxygen, she states she still feels short of breath, especially with any exertion. But appears to be in no acute distress, she is satting 97% on 3 L. Hemodynamically she has been stable, she is in the paced rhythm at a rate of 73 BPM. Afebrile, she is on 0.9 normal saline at 20 ML per hour, heparin infusion is at weight-based protocol. Overall she appears to be weak, but she is awake and alert, oriented 3, she is responding to questions appropriately. She remains on diuretics with Lasix 40 mg every 8 hours, she is on oral antibiotics in the form of Augmentin, she has been restarted on Entresto she is on Aldactone 25 mg daily. Said no acute events overnight, she states she is able to bring up some phlegm, and at times there is some blood in it, her PTT this morning is 36.5, that his labs have been reviewed white count is 7.7, hemoglobin is 12.4, sodium is 138, potassium 3.7, chloride is 100, CO2 32, BUN is 18, creatinine 0.57. Today's chest x-ray has been reviewed showing improvement diffuse lung infiltrates. Overall patient is weak, she's been working with physical therapy, she sat up in the chair yesterday. Abdomen is soft, no nausea vomiting or diarrhea patient is tolerating oral intake, although her appetite is poor. Her sternum is wharf tender head related to recent history of CPR, but overall is imp roved, she is working on incentive spirometer she is able to achieve 500 on the today. Is on amiodarone, and EP evaluation was requested for arrhythmias. Objective - Vital Signs Vital signs: Vital Signs Temp 98.4 F 05/06/21 04:00 Pulse 64 05/06/21 08:00 Resp 24 05/06/21 08:00 BP 110/72 05/06/21 08:00 Pulse Ox 96 05/06/21 08:00 Intake & Output 05/05/21 05/06/21 05/06/21 18:59 06:59 18:59 Intake Total 500 662.882 Output Total 2400 1350 Balance -1900 -687.118 Weight 73.2 kg Intake: IV 200 0.9 200 Intake, IV Titration 112.882 Amount Heparin Sod,Pork in 0.45% 112.882 NaCl 25,000 unit In 0.45 % NaCl 1 250ml.bag @ 12 UNITS/KG/HR 8.76 mls/hr IV .Q24H [facility] Rx#: [id number] Oral 500 350 Output: Urine 2400 1350 Other: Voiding Method Indwelling Catheter Indwelling Catheter - Exam GENERAL EXAM: Alert, very pleasant, weak looking 55-year-old white female, on 3 L of oxygen the pulse ox of 97% comfortable in no apparent distress. HEAD: Normocephalic/atraumatic. EYES: Normal reaction of pupils, equal size. Conjunctiva pink, sclera white. NOSE: Clear with pink turbinates. THROAT: No erythema or exudates. NECK: No masses, no JVD, no thyroid enlargement, no adenopathy. CHEST: No chest wall deformity. Symmetrical expansion. LUNGS: Equal air entry with diffuse crackles CVS: Regular rate and rhythm, normal S1 and S2, no gallops, no murmurs, no rubs ABDOMEN: Soft, nontender. No hepatosplenomegaly, normal bowel sounds, no guarding or rigidity. EXTREMITIES: No clubbing, no edema, no cyanosis, 2+ pulses and upper and lower extremities. MUSCULOSKELETAL: Muscle strength and tone normal. SPINE: No scoliosis or deformity SKIN: No rashes. Patient has a small burn area in between her breasts on the sternal area from [place] pad placement and CPR CENTRAL NERVOUS SYSTEM: Alert and oriented -3. No focal deficits, tone is normal in all 4 extremities. PSYCHIATRIC: Alert and oriented -3. Appropriate affect. Intact judgment and insight. - Labs CBC & Chem 7: 05/06/21 05:26 05/06/21 05:26 Labs: Abnormal Lab Results - Last 24 Hours (Table) 05/05/21 05/06/21 05/06/21 Range/Units 11:50 05:26 05:26 APTT 46.1 H 36.5 H (22.0-30.0) sec Carbon Dioxide 32 H (22-30) mmol/L BUN 18 H (7-17) mg/dL AST 37 H (14-36) U/L ALT 46 H (4-34) U/L Total Protein 5.8 L (6.3-8.2) g/dL Albumin 3.4 L (3.5-5.0) g/dL Assessment and Plan Plan: Assessment: #1. Acute hypoxic respiratory failure secondary to out of hospital witnessed cardiac arrest, CPR was initiated by family members, patient received 2 rounds of epinephrine, and to external defibrillator. Return of spontaneous circulation was achieved. Patient was intubated and mechanically ventilated on oral 05/01/2021, and successfully weaned and extubated on 05/02/2021. Down time was approximately 15 minutes #2. Severe cardiomyopathy, with ejection fraction of 20-25%, status post AICD/pacemaker placement, patient follows with a java technical manager at the [facility] #3. Leukocytosis and fever, without obvious sign of infection, most likely reactive, and is trending down. Patient is empirically covered with oral Augme ntin #4. Chronic A. fib #5. Acute pulmonary edema related to acute on chronic systolic congestive heart failure, improving on today's chest x-ray #6. Generalized weakness following cardiac arrest, and mechanical ventilator support, patient is working with physical therapy Plan: Continue current medical treatment Same dose IV Lasix Continue encouraging deep breathing and coughing, pain control, empiric antibiotics Vital signs are stable Increase activity as tolerated Follow-up labs and chest x-ray in the morning Patient is awaiting a bed on selective care I performed a history & physical examination of the patient and discussed their management with my nurse practitioner, Anita Jsoé. I reviewed the nurse practitioner's note and agree with the documented findings and plan of care. Lung sounds are positive for crackles throughout the lung levin. The findings and the impression was discussed with the patient. I attest to the documentation by the nurse practitioner. Time with Patient: Greater than 30
[2021-05-06] MEDS: HEPARIN SOD,PORK IN 0.45% NACL 25,000 UNIT in 0.45% NACL 1 250ML.BAG IV SCH (13:16)
--- NOTE | 2021-05-06 16:28 | P.PN ---
Subjective Progress Note Date: 05/06/21 Principal diagnosis: Cardiac arrest and pulmonary edema This 55-year-old female with known case of heart myopathy and chronic CHF was admitted with cardiac arrest with documented ventricular fibrillation. Patient had prolonged CPR. Patient has recovered well and seemed to be alert and oriented. Patient chest x-ray showed pulmonary edema. Patient is on IV diuretics and responding very well. She was put on an test and also Aldactone along with Lasix. Patient is also on amiodarone. Apparently patient had some problems with visual disturbance in the past. We will get EP evaluation for management of her arrhythmias. Patient is reluctant to take amiodarone. Patient was told that it is temporary until seen and evaluated by portfolio assistant. Patient have significant pain related to CPR. Patient to be transferred to telemetry unit. 05/06/2021: This patient seemed to be relatively stable. Chest x-ray showed improvement. No complaints of shortness of breath but complains of pain related to CPR to the chest. Patient is maintaining pacemaker rhythm. No arrhythmias are due to noted. Lab work shows normal kidney function and potassium levels. Lungs appeared to be clear. Heart is regular. We'll continue with current medical therapy including amiodarone diuretics and Aldactone. Waiting for input from belt and link assembly supervisor. May transfer to telemetry unit. Increase activity as tolerated Objective - Vital Signs Vital signs: Vital Signs Temp 98.1 F 05/06/21 12:00 Pulse 66 05/06/21 12:00 Resp 13 05/06/21 12:00 BP 116/68 05/06/21 12:00 Pulse Ox 94 L 05/06/21 12:00 Intake & Output 05/05/21 05/06/21 05/06/21 18:59 06:59 18:59 Intake Total 500 662.882 Output Total 2400 1350 Balance -1900 -687.118 Weight 73.2 kg Intake: IV 200 0.9 200 Intake, IV Titration 112.882 Amount Heparin Sod,Pork in 0.45% 112.882 NaCl 25,000 unit In 0.45 % NaCl 1 250ml.bag @ 12 UNITS/KG/HR 8.76 mls/hr IV .Q24H [facility] Rx#: [id number] Oral 500 350 Output: Urine 2400 1350 Other: Voiding Method Indwelling Catheter Indwelling Catheter Indwelling Catheter - Exam GENERAL EXAM: Patient is alert and oriented and appears to be weak and frail HEENT: Normocephalic. Normal reaction of pupils, equal size, normal range of extraocular motion. No erythema or exudates in throat. NECK: No masses, no nuchal rigidity. CHEST: No chest wall deformity. LUNGS: Diminished air exchange HEART: S1 and S2 normal ABDOMEN: No hepatosplenomegaly, normal bowel sounds, no guarding or rigidity. SKIN: No rashes CENTRAL NERVOUS SYSTEM: No focal deficits. EXTREMITIES: No cyanosis, clubbing or edema. - Labs CBC & Chem 7: 05/06/21 05:26 05/06/21 05:26 Labs: Abnormal Lab Results - Last 24 Hours (Table) 05/06/21 05/06/21 05/06/21 Range/Units 05:26 05:26 14:47 APTT 36.5 H 47.4 H (22.0-30.0) sec Carbon Dioxide 32 H (22-30) mmol/L BUN 18 H (7-17) mg/dL AST 37 H (14-36) U/L ALT 46 H (4-34) U/L Total Protein 5.8 L (6.3-8.2) g/dL Albumin 3.4 L (3.5-5.0) g/dL Assessment and Plan (1) Non-ischemic cardiomyopathy Current Visit: Yes Status: Acute Code(s): I42.8 - OTHER CARDIOMYOPATHIES SNOMED Code(s): 21789234 (2) Cardiac arrest Current Visit: Yes Status: Acute Code(s): I46.9 - CARDIAC ARREST, CAUSE UNSPECIFIED SNOMED Code(s): 036330483 (3) History of automatic internal cardiac defibrillator (AICD) Current Visit: Yes Status: Acute Code(s): Z95.810 - PRESENCE OF AUTOMATIC (IMPLANTABLE) CARDIAC DEFIBRILLATOR SNOMED Code(s): 985191052 (4) Pulmonary edema Current Visit: Yes Status: Acute Code(s): J81.1 - CHRONIC PULMONARY EDEMA SNOMED Code(s): 05733149 Plan: Continue current medical therapy. May switch to by mouth Lasix tomorrow. Waiting for input from portfolio assistant
--- NOTE | 2021-05-06 17:01 | P.PN ---
Subjective Progress Note Date: 05/06/21 Principal diagnosis: Status post cardiac arrest Acute hypoxic respiratory failure status post intubation/extubation. Acute systolic CHF with cardiomyopathy and ejection fraction 20-25% 55 years old female with past medical history of atrial fibrillation status post pacemaker Patient presents to the emergency room status post cardiac arrest. Records family were performing CPR upon EMS arrival. She was in V. fib and shocked 2, patient was given 2 epinephrine and 300 mg of amiodarone. Pulses were back before she was prepped to the emergency room. On arrival patient was tachycardic at 123, tachypnea catheter due to blood pressure was 140/76 and she was saturating 70%. At that time she opens her eyes to pain and Incomprehensible sounds. A documented downtown is about 15 minutes. Upon arrival patient was intubated because of hypoxia She was placed on heparin drip for suspected pulmonary embolism pulmonary and cardiology were consulted from emergency room. Antibiotics were started and emergency room. Also sodium bicarb drip and amiodarone were started. Labs showing leukocytosis of 35.8, rest of CBC is unremarkable. This morning pH 7.3 which is normal, pCO2 low at 32 and pO2 is 388. Sodium and potassium were normal, creatinine normal. Carbon dioxide is low at 17. Lactic acid is elevated Liver enzymes slightly elevated Also vital showing fever of 101.1. CTA of the chest showed no pulmonary embolism. Extensive pulmonary infiltrates that could lead to RDS EKG showing paced rhythm at 117. QTC is 585 Currently she still on heparin drip, amiodarone drip, sodium bicarbonate drip 05/05/2021, remains in the ICU, patient is doing fairly well, remains on 2 L nasal cannula, remains on diuretics and today increased the dose of Lasix again since her chest x-ray is showing worsening pulmonary edema. Patient had an ejection fraction of less than 20%, overall she is doing better than expected considering her out of hospital cardiac arrest. Labs today were reviewed, she had a relatively normal CBC and the relatively normal electrolytes, normal renal profile. Transfer patient to a cardiac floor with monitor. Increase Lasix again to 40 mg IV push 3 times a day. Continue Aldactone. Continue oral amiodarone. Continue heparin. Continue GI and DVT prophylaxis. Change CODE STATUS to DO NOT RESUSCITATE as per patient's own wishes. 05/06/2021 Patient is seen and evaluated at bedside in ICU; awaits transfer to stepdown unit Vital signs are reviewed temperature of 98.1, pulse 66, respiration 13 and blood pressure 116/68; O2 saturation 94% Cardiology on board; no arrhythmias on the monitor; patient is recommended to continue current medical therapy including amiodarone, Aldactone and She remains on diuretics with Lasix 40 mg every 8 hours, she is on oral antibiotics in the form of Augmentin, she has been restarted on Entresto she is on Aldactone 25 mg daily; EP to evaluate patient and make recommendations labs have been reviewed white count is 7.7, hemoglobin is 12.4, sodium is 138, potassium 3.7, chloride is 100, CO2 32, BUN is 18, creatinine 0.57. Today's chest x-ray has been reviewed showing improvement diffuse lung infiltrates. Overall patient is weak, she's been working with physical therapy, she sat up in the chair yesterday. Abdomen is soft, no nausea vomiting or diarrhea patient is tolerating oral intake, although her appetite is poor. Her sternum is raw stock drier tender related to recent history of CPR, but overall is improved, she is working on incentive spirometer she is able to achieve 500 on the today. Is on amiodarone, and EP evaluation was requested for arrhythmias. Objective - Vital Signs Vital signs: Vital Signs Temp 98.4 F 05/06/21 04:00 Pulse 64 05/06/21 08:00 Resp 24 05/06/21 08:00 BP 110/72 05/06/21 08:00 Pulse Ox 96 05/06/21 08:00 Intake & Output 05/05/21 05/06/21 05/06/21 18:59 06:59 18:59 Intake Total 500 662.882 Output Total 2400 1350 Balance -1900 -687.118 Weight 73.2 kg Intake: IV 200 0.9 200 Intake, IV Titration 112.882 Amount Heparin Sod,Pork in 0.45% 112.882 NaCl 25,000 unit In 0.45 % NaCl 1 250ml.bag @ 12 UNITS/KG/HR 8.76 mls/hr IV .Q24H [facility] Rx#: [id number] Oral 500 350 Output: Urine 2400 1350 Other: Voiding Method Indwelling Catheter Indwelling Catheter - Exam -GENERAL: The patient is alert and oriented x3, generally weak. HEENT: Pupils are round and equally reacting to light. EOMI. No scleral icterus. No conjunctival pallor. Normocephalic, atraumatic. No pharyngeal erythema. No thyromegaly. CARDIOVASCULAR: S1 and S2 present. No murmurs, rubs, or gallops. PULMONARY: Chest is clear to auscultation, no wheezing or crackles. ABDOMEN: Soft, nontender, nondistended, normoactive bowel sounds. No palpable organomegaly. [place] catheter is in place MUSCULOSKELETAL: No joint swelling or deformity. EXTREMITIES: No cyanosis, clubbing, or pedal edema. NEUROLOGICAL: Gross neurological examination did not reveal any focal deficits. SKIN: No rashes. no petechiae. - Labs CBC & Chem 7: 05/06/21 05:26 05/06/21 05:26 Labs: Abnormal Lab Results - Last 24 Hours (Table) 05/05/21 05/06/21 05/06/21 Range/Units 11:50 05:26 05:26 APTT 46.1 H 36.5 H (22.0-30.0) sec Carbon Dioxide 32 H (22-30) mmol/L BUN 18 H (7-17) mg/dL AST 37 H (14-36) U/L ALT 46 H (4-34) U/L Total Protein 5.8 L (6.3-8.2) g/dL Albumin 3.4 L (3.5-5.0) g/dL Assessment and Plan Assessment: Status post cardiac arrest, status post CPR prepped arriving to the hospital which was successful in restoring circulation. [place] is documented about 15 minutes Acute hypoxic respiratory failure status post intubation/extubation. Acute systolic CHF with cardiomyopathy and ejection fraction 20-25% leukocytosis, fever. No obvious source of infection. Most likely reactive in trending down Elevated lactic acid. With acidosis History of atrial fibrillation on pacemaker Plan: This is a pleasant 55 years old female who presents with cardiac arrest, sepsis. continue with heparin, amiodarone and sodium bicarbonate drip Pulmonary/critical care consult Cardiology consult Check urinalysis and procalcitonin (pending ) Labs and medication were reviewed.. Continue same treatment. Continue with sym ptomatic treatment. Resume home medication. Monitor lytes and vitals. DVT and GI prophylaxis. Further recommendations depends on the clinical course of the patient DVT prophylaxis: heparin GI Prophylaxis: Ppi patient's wants to be DO NOT RESUSCITATE Prognosis is guarded
[2021-05-07] MEDS: KETOROLAC 15 MG/ML 1 ML VIAL IVP SCH ×4 (02:45→20:31)
[2021-05-07 05:51] LABS: Basophils % (A) 1 %; Eosinophils # (A) 0.4 k/uL (0-0.7); Eosinophils % (A) 5 %; HCT 41.3 % (34.0-46.0); HGB 13.5 gm/dL (11.4-16.0); Lymphocytes # (A) 1.7 k/uL (1.0-4.8); Lymphocytes % (A) 21 %; MCH 30.3 pg (25.0-35.0); MCHC 32.7 g/dL (31.0-37.0); MCV 92.8 fL (80.0-100.0); Mean Platelet Volume 7.6; Monocytes # (A) 0.5 k/uL (0-1.0); Monocytes % (A) 6 %; Neutrophils # (A) 5.4 k/uL (1.3-7.7); Neutrophils % (A) 66 %; Platelet Count 265 k/uL (150-450); RBC 4.45 m/uL (3.80-5.40); RDW 13.4 % (11.5-15.5); WBC 8.3 k/uL (3.8-10.6)
[2021-05-07 06:19] LABS: ALT 46 U/L (4-34); AST 39 U/L (14-36); African American GFR (CKD) >90 (>60 ml/min/1.73 sqM); Albumin 3.6 g/dL (3.5-5.0); Alkaline Phosphatase 91 U/L (38-126); Anion Gap 7 mmol/L; Blood Urea Nitrogen 21 mg/dL (7-17); Calcium 10.1 mg/dL (8.4-10.2); Carbon Dioxide 31 mmol/L (22-30); Chloride 100 mmol/L (98-107); Glucose 100 mg/dL (74-99); Non-African American GFR(CKD) >90 (>60 ml/min/1.73 sqM); Potassium 4.2 mmol/L (3.5-5.1); Sodium 138 mmol/L (137-145); Total Bilirubin 1.2 mg/dL (0.2-1.3)
--- NOTE | 2021-05-07 08:53 | XR ---
EXAMINATION TYPE: XR chest 1V portable DATE OF EXAM: 05/07/2021 Comparison: 05/06/2021 Clinical History: 55-year-old female Congestion Findings: Left anterior chest wall AICD generator with right atrial, right ventricular, and coronary sinus lead s. Heart borderline enlarged. Some mild patchy retrocardiac density. No consolidation or pleural effu srinivasan. Impression: Borderline cardiomegaly. Mild patchy atelectasis or early infiltrate at the retrocardiac left base.
[2021-05-07] MEDS: AMIODARONE 200 MG TAB PO SCH ×2 (09:23→19:44)
[2021-05-07] MEDS: HEPARIN SODIUM,PORCINE/PF 5,000 UNIT/0.5 ML SYRINGE SQ SCH ×2 (09:39→20:27)
[2021-05-07] MEDS: FUROSEMIDE 20 MG TAB PO SCH (09:39)
[2021-05-07] MEDS: SPIRONOLACTONE 25 MG TAB PO SCH (09:40)
[2021-05-07] MEDS: BACITRACIN OINT 1 EACH PACKET TOPICAL SCH ×3 (09:40→20:27)
[2021-05-07] MEDS: SACUBITRIL/VALSARTAN 24 MG-26 MG TABLET PO SCH ×2 (09:40→20:27)
[2021-05-07] MEDS: PANTOPRAZOLE 40 MG/10 ML VIAL IV SCH (09:40)
--- NOTE | 2021-05-07 09:51 | PN ---
PROGRESS NOTE This lady came in with what seems to be a cardiac arrest with some brief CPR. It is unclear on the downtime. She carries a diagnosis of nonischemic cardiomyopathy and follows at [facility]. She has an ICD. She is alert and awake today. Has no chest pain or shortness of breath. She is maintaining sinus rhythm. She did not have any sustained atrial fibrillation but she had ventricular tachycardia. I will therefore continue the amiodarone but decreased the dose from 400 mg to 200 mg b.i.d. and add carvedilol at 1.63 mg b.i.d., which is half a tablet of 3.125 mg. I will switch her from IV to oral Lasix, place her on subcu heparin, discontinue IV heparin and increase activity. PHYSICAL EXAMINATION: Vitals are stable. JVD not evident. S1-S2 heard normally. No significant murmurs. Lungs reveal decent air entry. Abdomen is soft. Lower extremities reveal diminished pulses. Central nervous system normal. IMPRESSION: 1. Status post cardiac arrest with good recovery. 2. Ventricular tachycardia in a patient with nonischemic cardiomyopathy. 3. History of chronic systolic heart failure. RECOMMENDATIONS: We will add small dose of beta-[place] and switch her from IV to oral Lasix. Decrease amiodarone. Subcu heparin. Increase activity. 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 We will increase activity. YAEL / JAVYN: [id number] /
--- NOTE | 2021-05-07 11:01 | P.CRDCN ---
History of Present Illness History of present illness: Device interrogation reviewed Patient has a [employer] biventricular ICD Lead function normal Sensing normal Patient had ventricular fibrillation, spontaneously she received 36 J shock followed by 741 J shocks All therapies failed and the device therapies were exhausted She is currently on oral amiodarone which could further increase her defibrillation threshold She follows of [facility] in the heart failure clinic 2-D echo shows severe LV dysfunction ejection fraction 20% Her home medications were reviewed and she is on Bumex and entrance to I did not see any beta blockers of her home list In the hospital she is on Aldactone entrance to and low dose. Blockers along with amiodarone From an electrophysiologic standpoint she is unprotected by this device At discharge, consider LifeVest, although a 41 joule shock failed to defibrillated the patient 7 times The exact same thing may happen with a LifeVest Consider transfer to [facility] for further evaluation. She is a patient in the heart failure/EP clinic there Past Medical History Past Medical History: Atrial Fibrillation Additional Past Medical History / Comment(s): pacemaker, cardiac hx Last Myocardial Infarction Date:: 2012 History of Any Multi-Drug Resistant Organisms: None Reported Past Surgical History: Pacemaker Additional Past Surgical History / Comment(s): 2019 Replaced pacemaker Type of Cardiac Device: Permanent Pacemaker Device Placement Date:: n/a Past Psychological History: No Psychological Hx Reported Medications and Allergies Home Medications Medication Instructions Recorded Confirmed Type Bumetanide [BUMEX] 2 mg PO DAILY PRN 05/01/21 05/02/21 History Omeprazole 40 mg PO BID 05/01/21 05/01/21 History Potassium Chloride [Klor-Con 10] 100 meq PO DAILY 05/01/21 05/01/21 History Sacubitril/Valsartan [Entresto 24 1 tab PO BID 05/01/21 05/01/21 History mg-26 mg Tablet] Allergies Allergy/AdvReac Type Severity Reaction Status Date / Time Beta-Blockers Allergy Unknown Verified 05/01/21 21:17 (Beta-Adrenergic Bloc Physical Exam Vitals: Vital Signs Temp Pulse Resp BP Pulse Ox 05/07/21 07:54 97 05/07/21 04:00 98.3 F 62 15 104/65 98 05/07/21 02:00 64 16 91/68 97 05/07/21 00:00 97.8 F 68 17 106/68 95 05/06/21 22:00 75 22 133/86 97 05/06/21 20:00 97.8 F 84 12 122/77 97 05/06/21 18:00 75 20 128/80 05/06/21 16:00 97.9 F 64 19 128/80 95 05/06/21 12:00 98.1 F 66 13 116/68 94 L Intake and Output 05/06/21 05/07/21 05/07/21 22:59 06:59 14:59 Intake Total 450 Output Total 2099 2049 Balance -2099 -1599 Intake: IV 200 0.9 200 Oral 250 Output: Urine 2099 2049 Other: Voiding Method Indwelling Catheter Indwelling Catheter Weight 69.1 kg Results 05/07/21 05:32 05/07/21 05:32 Cardiac Enzymes 05/07/21 Range/Units 05:32 AST 39 H (14-36) U/L Coagulation 05/06/21 05/07/21 Range/Units 14:47 05:32 APTT 47.4 H 61.9 H (22.0-30.0) sec CBC 05/07/21 Range/Units 05:32 WBC 8.3 (3.8-10.6) k/uL RBC 4.45 (3.80-5.40) m/uL Hgb 13.5 (11.4-16.0) gm/dL Hct 41.3 (34.0-46.0) % Plt Count 265 (150-450) k/uL Comprehensive Metabolic Panel 05/07/21 Range/Units 05:32 Sodium 138 (137-145) mmol/L Potassium 4.2 (3.5-5.1) mmol/L Chloride 100 (98-107) mmol/L Carbon Dioxide 31 H (22-30) mmol/L BUN 21 H (7-17) mg/dL Creatinine 0.61 (0.52-1.04) mg/dL Glucose 100 H (74-99) mg/dL Calcium 10.1 (8.4-10.2) mg/dL AST 39 H (14-36) U/L ALT 46 H (4-34) U/L Alkaline Phosphatase 91 (38-126) U/L Total Protein 6.0 L (6.3-8.2) g/dL Albumin 3.6 (3.5-5.0) g/dL Current Medications Generic Name Dose Route Start Last Admin Trade Name Freq PRN Reason Stop Dose Admin Acetaminophen 650 mg 05/02/21 19:31 05/04/21 03:00 Acetaminophen Tab 325 Mg Tab PO 650 mg Q4HR PRN Administration Fever and/ or Pain Hydrocodone Bitart/Acetaminophen 1 each 05/03/21 08:09 05/04/21 08:31 Hydrocodone/Apap 5-325mg 1 Each Tab PO 1 each Q8HR PRN Administration Pain Amiodarone HCl 200 mg 05/07/21 09:00 05/07/21 09:23 Amiodarone 200 Mg Tab PO Not Given BID RAUL Bacitracin 1 each 05/02/21 22:00 05/07/21 09:40 Bacitracin Oint 1 Each Packet TOPICAL 1 each TID [facility] Administration Carvedilol 1.563 mg 05/07/21 08:15 05/07/21 09:22 Carvedilol 1.563 Mg Tab PO Not Given BID-W/MEALS RAUL Chlorhexidine Gluconate 15 ml 05/04/21 10:27 Chlorhexidine Gluconate 15 Ml Cup MUCOUS MEM BID PRN Mouth Sore Pain Furosemide 60 mg 05/07/21 09:00 05/07/21 09:39 Furosemide 20 Mg Tab PO 60 mg DAILY RAUL Administration Furosemide 40 mg 05/07/21 16:00 Furosemide 40 Mg Tab PO 1600 [facility] Heparin Sodium (Porcine) 5,000 unit 05/07/21 09:00 05/07/21 09:39 Heparin Sodium,Porcine/Pf 5,000 Unit/0.5 Ml Syringe SQ 5,000 unit Q12HR RAUL Administration Ketorolac Tromethamine 15 mg 05/03/21 09:00 05/07/21 09:39 Ketorolac 15 Mg/Ml 1 Ml Vial IVP 05/08/21 09:01 15 mg Q6H RAUL Administration Naloxone HCl 0.2 mg 05/01/21 19:36 Naloxone 0.4 Mg/Ml 1 Ml Vial IV Q2M PRN Opioid Reversal Nitroglycerin 0.4 mg 05/01/21 18:07 Nitroglycerin Sl Tabs 0.4 Mg Tab SUBLINGUAL Q5M PRN Chest Pain Ondansetron HCl 4 mg 05/02/21 11:16 05/04/21 11:26 Ondansetron 4 Mg/2 Ml Vial IVP 4 mg Q6HR PRN Administration Nausea And Vomiting Pantoprazole Sodium 40 mg 05/02/21 09:00 05/07/21 09:40 Pantoprazole 40 Mg/10 Ml Vial IV 40 mg DAILY RAUL Administration Sacubitril/Valsartan 1 each 05/04/21 10:00 05/07/21 09:40 Sacubitril/Valsartan 24 Mg-26 Mg Tablet PO 1 each BID RAUL Administration Spironolactone 25 mg 05/05/21 09:00 05/07/21 09:40 Spironolactone 25 Mg Tab PO 25 mg DAILY RAUL Administration Intake and Output 05/06/21 05/07/21 05/07/21 22:59 06:59 14:59 Intake Total 450 Output Total 2099 2049 Balance -2099 Intake: IV 200 0.9 200 Oral 250 Output: Urine 2099 2049 Other: Voiding Method Indwelling Catheter Indwelling Catheter Weight 69.1 kg 05/07/21 05:32 05/07/21 05:32
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
[2021-05-07 15:01] VITALS: BMI 26.9
--- NOTE | 2021-05-07 15:25 | P.PN ---
Subjective Progress Note Date: 05/07/21 Status post cardiac arrest Acute hypoxic respiratory failure status post intubation/extubation. Acute systolic CHF with cardiomyopathy and ejection fraction 20-25% 55 years old female with past medical history of atrial fibrillation status post pacemaker Patient presents to the emergency room status post cardiac arrest. Records family were performing CPR upon EMS arrival. She was in V. fib and shocked 2, patient was given 2 epinephrine and 300 mg of amiodarone. Pulses were back before she was prepped to the emergency room. On arrival patient was tachycardic at 123, tachypnea catheter due to blood pressure was 140/76 and she was saturating 70%. At that time she opens her eyes to pain and Incomprehensible sounds. A documented downtown is about 15 minutes. Upon arrival patient was intubated because of hypoxia She was placed on heparin drip for suspected pulmonary embolism pulmonary and cardiology were consulted from emergency room. Antibiotics were started and emergency room. Also sodium bicarb drip and amiodarone were started. Labs showing leukocytosis of 35.8, rest of CBC is unremarkable. This morning pH 7.3 which is normal, pCO2 low at 32 and pO2 is 388. Sodium and potassium were normal, creatinine normal. Carbon dioxide is low at 17. Lactic acid is elevated Liver enzymes slightly elevated Also vital showing fever of 101.1. CTA of the chest showed no pulmonary embolism. Extensive pulmonary infiltrates that could lead to RDS EKG showing paced rhythm at 117. QTC is 585 Currently she still on heparin drip, amiodarone drip, sodium bicarbonate drip 05/05/2021, remains in the ICU, patient is doing fairly well, remains on 2 L nasal cannula, remains on diuretics and today increased the dose of Lasix again since her chest x-ray is showing worsening pulmonary edema. Patient had an ejection fraction of less than 20%, overall she is doing better than expected considering her out of hospital cardiac arrest. Labs today were reviewed, she had a relatively normal CBC and the relatively normal electrolytes, normal renal profile. Transfer patient to a cardiac floor with monitor. Increase Lasix again to 40 mg IV push 3 times a day. Continue Aldactone. Continue oral amiodarone. Continue heparin. Continue GI and DVT prophylaxis. Change CODE STATUS to DO NOT RESUSCITATE as per patient's own wishes. 05/06/2021 Patient is seen and evaluated at bedside in ICU; awaits transfer to stepdown unit Vital signs are reviewed temperature of 98.1, pulse 66, respiration 13 and blood pressure 116/68; O2 saturation 94% Cardiology on board; no arrhythmias on the monitor; patient is recommended to continue current medical therapy including amiodarone, Aldactone and She remains on diuretics with Lasix 40 mg every 8 hours, she is on oral antibiotics in the form of Augmentin, she has been restarted on Entresto she is on Aldactone 25 mg daily; EP to evaluate patient and make recommendations labs have been reviewed white count is 7.7, hemoglobin is 12.4, sodium is 138, p otassium 3.7, chloride is 100, CO2 32, BUN is 18, creatinine 0.57. Today's chest x-ray has been reviewed showing improvement diffuse lung infiltrates. Overall patient is weak, she's been working with physical therapy, she sat up in the chair yesterday. Abdomen is soft, no nausea vomiting or diarrhea patient is tolerating oral intake, although her appetite is poor. Her sternum is shredder tender peat related to recent history of CPR, but overall is improved, she is working on incentive spirometer she is able to achieve 500 on the today. Is on amiodarone, and EP evaluation was requested for arrhythmias. 05/07/2021 Patient is seen in follow-up continues to be in the ICU awaiting for a bed to become available in the stepdown unit and is being closely monitored. Patient is currently sitting up in the chair and still having chest discomfort and patient is sitting comfortably on room air and occasionally using 3 L via nasal cannula. Patient oxygen saturation is 94% on room air. Blood pressure on the lower side and being closely monitored. Patient evaluated by Dr. Analia daniels for possible device interrogation and normally follows at the [facility] in the heart failure clinic. Most recent EF shows 20% with severe LV dysfunction. Recommending possible [facility] although ultimately needs possible transfer to [facility] given her extensive cardiac history with them. Patient started on beta modesto and transitioning from IV Lasix to oral Lasix and continue on amiodarone. Patient is on entresto and IV heparin has been discontinued. A was on oral Augmentin although will discontinue, patient is afebrile, white blood count within normal limits. Review of systems: Constitutional: No reports of fatigue, fever, or chills Cardiovascular: Reports chest wall pain Respiratory: Reports mild shortness of breath GI: No reports of nausea, vomiting, or diarrhea : No reports of dysuria or retention Neurovascular: reports generalized weakness although improving All medications have been reviewed Physical exam: GENERAL: The patient is alert and oriented x3, generally weak. HEENT: Pupils are round and equally reacting to light. EOMI. No scleral icterus. No conjunctival pallor. Normocephalic, atraumatic. No pharyngeal erythema. No thyromegaly. CARDIOVASCULAR: S1 and S2 present. No murmurs, rubs, or gallops. PULMONARY: Manage breath sounds with some scattered rhonchi noted and no wheezing noted on exam. ABDOMEN: Soft, nontender, nondistended, normoactive bowel sounds. No palpable organomegaly. MUSCULOSKELETAL: No joint swelling or deformity. EXTREMITIES: No cyanosis, clubbing, or pedal edema. NEUROLOGICAL: Gross neurological examination did not reveal any focal deficits. SKIN: No rashes. no petechiae. Assessment and plan: Status post cardiac arrest, status post CPR prepped arriving to the hospital which was successful in restoring circulation. [place] is documented about 15 minutes Acute hypoxic respiratory failure status post intubation/extubation. Acute systolic CHF with cardiomyopathy and ejection fraction 20-25% leukocytosis, fever. No obvious source of infection. Most likely reactive and within normal limits. Will discontinue empiric antibiotics Elevated lactic acid. With acidosis, resolved History of atrial fibrillation on pacemaker GI prophylaxis: protonix DVT prophylaxis: Subcutaneous heparin No code Plan: Patient continues in the ICU and awaiting telemetry bed on the stepdown unit as patient is stable and cardiology along with pulmonary and critical care following. IV heparin discontinued and patient is maintained on subcutaneous heparin along with oral amiodarone and Coreg along with Lasix which is being transitioned to oral Lasix. Patient was evaluated by electrophysiology recommending possible [facility] with possibility of transfer to [facility] as she is enrolled in the heart failure treatment plan there. Continue to encourage increased activity as tolerated and continue using incentive spirometer at least 10 times every hour while awake. Will repeat a.m. labs and continue to monitor closely. Objective - Vital Signs Vital signs: Vital Signs Temp 98.3 F 05/07/21 04:00 Pulse 62 05/07/21 04:00 Resp 15 05/07/21 04:00 BP 104/65 05/07/21 04:00 Pulse Ox 97 05/07/21 07:54 Intake & Output 05/06/21 05/07/21 05/07/21 18:59 06:59 18:59 Intake Total 450 Output Total 2099 2049 Balance -2099 -1599 Weight 69.1 kg Intake: IV 200 0.9 200 Oral 250 Output: Urine 2099 2049 Other: Voiding Method Indwelling Catheter Indwelling Catheter - Labs CBC & Chem 7: 05/07/21 05:32 05/07/21 05:32 Labs: Abnormal Lab Results - Last 24 Hours (Table) 05/06/21 05/07/21 05/07/21 Range/Units 14:47 05:32 05:32 APTT 47.4 H 61.9 H (22.0-30.0) sec Carbon Dioxide 31 H (22-30) mmol/L BUN 21 H (7-17) mg/dL Glucose 100 H (74-99) mg/dL AST 39 H (14-36) U/L ALT 46 H (4-34) U/L Total Protein 6.0 L (6.3-8.2) g/dL
[2021-05-07] MEDS ORDERED: FUROSEMIDE 40 MG TAB PO SCH (16:00)
[2021-05-08] MEDS: KETOROLAC 15 MG/ML 1 ML VIAL IVP SCH ×2 (03:18→08:16)
[2021-05-08 03:59] LABS: African American GFR (CKD) >90 (>60 ml/min/1.73 sqM); Anion Gap 6 mmol/L; Blood Urea Nitrogen 22 mg/dL (7-17); Calcium 10.1 mg/dL (8.4-10.2); Carbon Dioxide 30 mmol/L (22-30); Chloride 101 mmol/L (98-107); Glucose 91 mg/dL (74-99); Magnesium 1.9 mg/dL (1.6-2.3); Non-African American GFR(CKD) >90 (>60 ml/min/1.73 sqM); Potassium 3.9 mmol/L (3.5-5.1); Sodium 137 mmol/L (137-145)
--- NOTE | 2021-05-08 06:55 | P.PN ---
Subjective Progress Note Date: 05/08/21 Principal diagnosis: Congestive heart failure. This is a 55-year-old female brought in yesterday by EMS, patient is known to have history of chronic atrial fibrillation, cardiomyopathy, AICD placement, history of pacemaker implantation, patient had a witnessed cardiac arrest by family members, CPR was initiated by family, until EMS arrived, she received 2 rounds of epinephrine and 2 external defibrillations. Apparently the patient was in ventricular fibrillation at the time of EMS arrival. She also received 300 mg of amiodarone and she was brought into the ER where in she was immediately intubated upon arrival. Patient was maintained on amiodarone, and she was also placed on heparin. Patient was kept on mechanical ventilation overnight, and I was asked to see her on consultation. I evaluated the patient this morning, and she remains on mechanical ventilation, assist control rate was 18 tidal volume 500 FiO2 was down to 50%, PEEP was 15. and her ABG showed a pO2 of 338 pCO2 of 32 pH of 7.36. Chest x-ray showed significant improvement compared to last night x-ray, significant improvement in her pulmonary edema is noted. Patient was also noted to be on norepinephrine at 0.2 mcg/kg/m, she is off propofol, remains on heparin and amiodarone during my evaluation. After reviewing the ABG, chest x-ray, and the ventilator settings, I titrated her FiO2 down to 50%, PEEP down to 6, and shortly after went ahead and changed the patient to pressure support mode of mechanical ventilation, with rushes support of 8 and CPAP. Patient seemed to be tolerating this mode of ventilation well, she had decent tidal volumes in the range of 600+, and her rate was in the range of 18. Patient was awake, following all simple instructions, getting extremely agitated with the endotracheal tube and orogastric tube, hence after a short trial of pressure support and CPAP, went ahead and extubated the patient to a nasal cannula. Patient tolerated the extubation quite well while I was at bedside. WBC count this morning is 35.8 hemoglobin is 14.6. PTT is 104, on heparin as per protocol. Electrolytes are normal bicarb is 17 BUN is 27 creatinine 0.88, troponin 0.279. Chest x-ray showed significant interval improvement in patient's pulmonary edema compared to her initial chest x-ray on admission. Reevaluated today on 05/03/2021, patient remains in the ICU, presently on 5 L nasal cannula with O2 saturation of 94%. Remains on bicarb drip which I have discontinued today since her bicarb level is normal. Chest x-ray shows evidence of pulmonary edema, and I started the patient on Lasix at 40 mg IV push every 8 hours. Patient continues to have paced rhythm. Her echocardiogram showed very poor LV function with ejection fraction of 20-25%. Her IV fluid is now at KVO, patient is asking the nurse to make sure that she is DO NOT RESUSCITATE CODE STATUS, patient feels generally weak tired, and she is very well aware of her condition and her cardiac status. Patient clearly stated that if she is to code again, she would not want to be resuscitated. Continues to have chest wall pain from CPR. And I have recommended Toradol today. WBC count today 17.2 hem oglobin is 11.6. PTT is 44.6 and a quite abnormal renal profile is normal Reevaluated today on 05/04/2021, patient remains in the ICU, she is doing much better and then. Considering her presentation. Patient is on 3 L nasal cannula with O2 sats of 96%, her IV fluid at KVO, remains on diuretics, and her chest x- ray showed significant improvement in her pulmonary edema. Patient remains fully paced, she has a paced rhythm, remains on multiple cardiac meds including oral amiodarone, and cardiology is waiting to hear from the [address] [place] [id number] and the opinion of the larriman helper. Recommended resuming entresto, and increasing Aldactone. I did cut down the Lasix to 40 mg twice a day instead of 3 times a day. PTT is 51. Electrolytes are normal renal profile is normal CBC is normal Reevaluated today on 05/05/2021, remains in the ICU, patient is doing fairly well, remains on 2 L nasal cannula, remains on diuretics and today increased the dose of Lasix again since her chest x-ray is showing worsening pulmonary edema. Patient had an ejection fraction of less than 20%, overall she is doing better than expected considering her out of hospital cardiac arrest. Labs today were reviewed, she had a relatively normal CBC and the relatively normal electrolytes, normal renal profile. 05/06/2021 patient seen in follow-up in the intensive care unit. She is awake and alert, in no acute distress, resting comfortably in bed, she is currently on 3 L of oxygen, she states she still feels short of breath, especially with any exertion. But appears to be in no acute distress, she is satting 97% on 3 L. Hemodynamically she has been stable, she is in the paced rhythm at a rate of 73 BPM. Afebrile, she is on 0.9 normal saline at 20 ML per hour, heparin infusion is at weight-based protocol. Overall she appears to be weak, but she is awake and alert, oriented 3, she is responding to questions appropriately. She remains on diuretics with Lasix 40 mg every 8 hours, she is on oral antibiotics in the form of Augmentin, she has been restarted on Entresto she is on Aldactone 25 mg daily. Said no acute events overnight, she states she is able to bring up some phlegm, and at times there is some blood in it, her PTT this morning is 36.5, that his labs have been reviewed white count is 7.7, hemoglobin is 12.4, sodium is 138, potassium 3.7, chloride is 100, CO2 32, BUN is 18, creatinine 0.57. Today's chest x-ray has been reviewed showing improvement diffuse lung infiltrates. Overall patient is weak, she's been working with physical therapy, she sat up in the chair yesterday. Abdomen is soft, no nausea vomiting or diarrhea patient is tolerating oral intake, although her appetite is poor. Her sternum is toe closing machine tender related to recent history of CPR, but overall is improved, she is working on incentive spirometer she is able to achieve 500 on the today. Is on amiodarone, and EP evaluation was requested for arrhythmias. On 05/28/2021 patient seen in follow-up in the intensive care unit. She is sitting up in the recliner, appears to be in no acute distress. Appears weak, fatigued, but no signs of any respiratory distress. Her chest is mildly sore, although the pain is improved. She is currently on 3 L of oxygen sats of 97- 98%, she's been afebrile, hemodynamically she stable, she is in the paced mechanism on the monitor, no arrhythmias overnight. She remains on oral diuretics in the form of Lasix 60 mg in the morning and 40 mg in the afternoon, she is on Entresto, Coreg 1.563 mg twice daily, amiodarone. She is on oral Augmentin. This had no fever or chills, her CBC is within normal limits, white blood cell count is 8.3 on today's labs, hemoglobin is 13.5. Electrolytes are fairly unremarkable, BUN is 21 and creatinine is 0.61. Shunt is diuresing, and she is in -2.59 fluid balance over the last 24 hours. Still has a diffuse crackles on physical exam, but the dyspnea has improved. His still bringing up some old blood with coughing. Not a significant amount, her heparin infusion has been discontinued per cardiology today. Progress note dated 05/08/2021. This is a 55-year-old female who is again seen in room 260 in the intensive care unit. She had an uneventful night. She is waiting for bed on . She's currently receiving no supplemental oxygen. She's not on any IV fluids. She is hemodynamically stable. Respiratory status is stable as well. Her medications have been extensively reviewed. Lab data today includes sodium 137, potassium 3.9, chlorides 101, CO2 30, anion gap 6, BUN 22, and creatinine 0.62. Microbiology is negative. There is no chest x-ray today as yet. Objective - Vital Signs Vital signs: Vital Signs Temp 98.5 F 05/08/21 03:19 Pulse 80 05/08/21 03:19 Resp 14 05/08/21 03:19 BP 108/75 05/08/21 03:19 Pulse Ox 94 L 05/08/21 03:19 Intake & Output 05/07/21 05/07/21 05/08/21 06:59 18:59 06:59 Intake Total 450 Output Total 2049 525 850 Balance -1600 -525 -850 Weight 69.1 kg 69.1 kg 70.9 kg Intake: IV 200 0.9 200 Oral 250 Output: Urine 2049 525 850 Other: Voiding Method Indwelling Catheter Toilet Toilet # Voids 1 # Bowel Movements 1 - Exam No acute distress, oriented 3. Currently not receiving any supplemental oxygen. HEENT examination is grossly unremarkable. Mucous membranes are moist. No oral lesions. Neck supple. Full range of motion. No adenopathy thyromegaly or neck vein distention. Cardiovascular examination reveals regular rhythm rate. S1-S2 normal. No S3 or S4. No discernible murmur noted. Heart sounds are distant. Heart rate 80 bpm. Lungs reveal diffuse bilateral crackles. No wheezes or rhonchi. Breath sounds equal bilaterally. Abdomen soft bowel sounds are heard. No masses or tenderness. Extremities are intact. No cyanosis clubbing or edema. Skin reveals a small burn area between her breasts on the sternal area from CPR. Neurologic examination is brief but nonfocal. - Labs CBC & Chem 7: 05/07/21 05:32 05/08/21 03:15 Labs: Abnormal Lab Results - Last 24 Hours (Table) 05/08/21 Range/Units 03:15 BUN 22 H (7-17) mg/dL Assessment and Plan Assessment: #1. Acute hypoxic respiratory failure secondary to out of hospital witnessed cardiac arrest, CPR was initiated by family members, patient received 2 rounds of epinephrine, and to external defibrillator. Return of spontaneous circulatio n was achieved. Patient was intubated and mechanically ventilated on oral 05/01/2021, and successfully weaned and extubated on 05/02/2021. Down time was approximately 15 minutes. #2. Severe cardiomyopathy, with ejection fraction of 20-25%, status post AICD/pacemaker placement, patient follows with a college professor at the [facility]. #3. Leukocytosis and fever, without obvious sign of infection, most likely reactive, and is trending down. Patient is empirically covered with oral Augmentin. #4. Chronic A. fib. #5. Acute pulmonary edema related to acute on chronic systolic congestive heart failure, improving on today's chest x-ray. #6. Generalized weakness following cardiac arrest, and mechanical ventilator support, patient is working with physical therapy. Plan: Plan dated 05/08/2021. Currently, the patient's doing well. The patient is very stable. Respiratory status and hemodynamics status are stable. The patient has decided to be a DNR. She's not receiving any supplemental oxygen. The patient is waiting for bed on . We will continue to follow make recommendations were appropriate. Time with Patient: Less than 30
[2021-05-08] MEDS: FUROSEMIDE 20 MG TAB PO SCH (08:15)
[2021-05-08] MEDS: SPIRONOLACTONE 25 MG TAB PO SCH (08:15)
[2021-05-08] MEDS: HEPARIN SODIUM,PORCINE/PF 5,000 UNIT/0.5 ML SYRINGE SQ SCH (08:15)
[2021-05-08] MEDS: PANTOPRAZOLE 40 MG/10 ML VIAL IV SCH (08:15)
[2021-05-08] MEDS: BACITRACIN OINT 1 EACH PACKET TOPICAL SCH (08:16)
[2021-05-08] MEDS: SACUBITRIL/VALSARTAN 24 MG-26 MG TABLET PO SCH (08:17)
[2021-05-08] MEDS: AMIODARONE 200 MG TAB PO SCH (08:22)
--- NOTE | 2021-05-08 09:22 | PN ---
PROGRESS NOTE Mrs Trina Quinones apparently has a nonischemic cardiomyopathy. Given her presentation with ventricular tachycardia, suggested amiodarone and beta modesto combination, which she has refused. She is doing well today she wishes to go home and follow up with her own marketing strategy lead. She is not willing to take either amiodarone or beta modesto and she has refused them both. Vitals are stable. The electrolytes are better. S1-S2 heard normally. No significant murmurs. Lungs are clear. Abdomen and lower extremity exam unchanged. Patient can be discharged on current medications including amiodarone and carvedilol, but if she decides not to take it, it is her choice. She will follow up with her own marketing strategy lead. MMODL / IJN: [id number] /
[2021-05-08 12:34] VITALS: BP 118/85; PULSE 93; RESP 19; TEMP 98.2
--- NOTE | 2021-05-10 06:21 | P.DS ---
Providers Date of admission: 05/01/21 19:36 Expected date of discharge: 05/08/21 Attending physician: Sebas Fernández MD Consults: 05/01/21 19:36 Consult Physician Stat Consulting Provider: Blanka Perez Consult Reason/Comments: ROSC Do you want consulting provider notified?: Already Contacted Consult Physician Urgent Consulting Provider: Sam Helms Consult Reason/Comments: Cardiac arrest Do you want consulting provider notified?: Already Contacted Primary care physician: Stated None Hospital Course: Final Diagnosis Status post cardiac arrest, status post CPR prior arriving to the hospital which was successful in restoring circulation. [place] is documented about 15 minutes Acute hypoxic respiratory failure status post intubation/extubation. Acute systolic CHF with cardiomyopathy and ejection fraction 20-25% leukocytosis, fever. No obvious source of infection. Most likely reactive and within normal limits Elevated lactic acidosis, resolved History of atrial fibrillation on pacemaker GI prophylaxis DVT prophylaxis No code Discharge disposition Patient is being discharged in a stable condition with guarded prognosis to home. Patient will follow-up with [facility] in the outpatient setting upon discharge. Patient will also follow up with Dr. Hernandez her cardiology out of [facility]. Total time taken is greater than 35 minutes. Hospital course Status post cardiac arrest Acute hypoxic respiratory failure status post intubation/extubation. Acute systolic CHF with cardiomyopathy and ejection fraction 20-25% 55 years old female with past medical history of atrial fibrillation status post pacemaker Patient presents to the emergency room status post cardiac arrest. Records family were performing CPR upon EMS arrival. She was in V. fib and shocked 2, patient was given 2 epinephrine and 300 mg of amiodarone. Pulses were back before she was prepped to the emergency room. On arrival patient was tachycardic at 123, tachypnea catheter due to blood pressure was 140/76 and she was saturating 70%. At that time she opens her eyes to pain and Incomprehensible sounds. A documented downtown is about 15 minutes. Upon arrival patient was intubated because of hypoxia She was placed on heparin drip for suspected pulmonary embolism pulmonary and cardiology were consulted from emergency room. Antibiotics were started and emergency room. Also sodium bicarb drip and amiodarone were started. Labs showing leukocytosis of 35.8, rest of CBC is unremarkable. This morning pH 7.3 which is normal, pCO2 low at 32 and pO2 is 388. Sodium and potassium were normal, creatinine normal. Carbon dioxide is low at 17. Lactic acid is elevated Liver enzymes slightly elevated Also vital showing fever of 101.1. CTA of the chest showed no pulmonary embolism. Extensive pulmonary infiltrates that could lead to RDS EKG showing paced rhythm at 117. QTC is 585 Currently she still on heparin drip, amiodarone drip, sodium bicarbonate drip 05/05/2021, remains in the ICU, patient is doing fairly well, remains on 2 L nasal cannula, remains on diuretics and today increased the dose of Lasix again since her chest x-ray is showing worsening pulmonary edema. Patient had an ejection fraction of less than 20%, overall she is doing better than expected considering her out of hospital cardiac arrest. Labs today were reviewed, she had a relatively normal CBC and the relatively normal electrolytes, normal renal profile. Transfer patient to a cardiac floor with monitor. Increase Lasix again to 40 mg IV push 3 times a day. Continue Aldactone. Continue oral amiodarone. Continue heparin. Continue GI and DVT prophylaxis. Change CODE STATUS to DO NOT RESUSCITATE as per patient's own wishes. 05/06/2021 Patient is seen and evaluated at bedside in ICU; awaits transfer to stepdown unit Vital signs are reviewed temperature of 98.1, pulse 66, respiration 13 and blood pressure 116/68; O2 saturation 94% Cardiology on board; no arrhythmias on the monitor; patient is recommended to continue current medical therapy including amiodarone, Aldactone and She remains on diuretics with Lasix 40 mg every 8 hours, she is on oral antibiotics in the form of Augmentin, she has been restarted on Entresto she is on Aldactone 25 mg daily; EP to evaluate patient and make recommendations labs have been reviewed white count is 7.7, hemoglobin is 12.4, sodium is 138, potassium 3.7, chloride is 100, CO2 32, BUN is 18, creatinine 0.57. Today's chest x-ray has been reviewed showing improvement diffuse lung infiltrates. Overall patient is weak, she's been working with physical therapy, she sat up in the chair yesterday. Abdomen is soft, no nausea vomiting or diarrhea patient is tolerating oral intake, although her appetite is poor. Her sternum is still cleaner tube related to recent history of CPR, but overall is improved, she is working on incentive spirometer she is able to achieve 500 on the today. Is on amiodarone, and EP evaluation was requested for arrhythmias. 05/07/2021 Patient is seen in follow-up continues to be in the ICU awaiting for a bed to become available in the stepdown unit and is being closely monitored. Patient is currently sitting up in the chair and still having chest discomfort and patient is sitting comfortably on room air and occasionally using 3 L via nasal cannula. Patient oxygen saturation is 94% on room air. Blood pressure on the lower side and being closely monitored. Patient evaluated by Dr. Helms today for possible device interrogation and normally follows at the [facility] in the heart failure clinic. Most recent EF shows 20% with severe LV dysfunction. Recommending possible [facility] although ultimately needs possible transfer to [facility] given her extensive cardiac history with t hem. Patient started on beta [place]o and transitioning from IV Lasix to oral Lasix and continue on amiodarone. Patient is on entresto and IV heparin has been discontinued. A was on oral Augmentin although will discontinue, patient is afebrile, white blood count within normal limits. 05/08/2021 Patient is seen in follow-up with no acute overnight issues noted. Patient seen and evaluated by cardiology and recommending coreg, lasix, and amiodarone and prescriptions provided. Patient follows at the [facility] heart failure clinic Dr. Hernandez and is hesitant about starting any new medications and would like to follow up with him to discuss. Patient is going to stay with her daughter and will follow up with her vp medical. Currently no reports of chest pain, shortness of breath, or palpitations. Patient is afebrile. No reports of nausea or vomiting and patient is tolerating diet. Patient will be discharged home. GENERAL: The patient is alert and oriented x3, not in any acute distress. Well developed, well nourished. CARDIOVASCULAR: S1 and S2 present. No murmurs, rubs, or gallops. PULMONARY: diminished breath sounds otherwise clear to auscultation ABDOMEN: Soft, nontender, nondistended, normoactive bowel sounds. No palpable organomegaly. MUSCULOSKELETAL: No joint swelling or deformity. EXTREMITIES: No cyanosis, clubbing, or pedal edema. NEUROLOGICAL: Gross neurological examination did not reveal any focal deficits. SKIN: No rashes. On exam vital signs are stable. Cardio S1, S2 are muffled. Respiratory system shows diminished breath sounds at the bases with no wheezing or rhonchi noted. Abdomen is soft and nontender. Nervous system shows no focal deficits. Please refer to medication reconciliation sheet for a list of medications. Patient Condition at Discharge: Fair Plan - Discharge Summary Discharge Rx Participant: No New Discharge Prescriptions: New carvediloL [Coreg] 1.563 mg PO BID-W/MEALS #60 dose Furosemide [Lasix] 40 mg PO 1600 #30 tab Nitroglycerin Sl Tabs [Nitrostat] 0.4 mg SUBLINGUAL Q5M PRN #30 tab PRN Reason: Chest Pain Acetaminophen Tab [Tylenol] 650 mg PO Q4HR PRN tab PRN Reason: Fever And/ Or Pain Spironolactone [Aldactone] 25 mg PO DAILY #30 tab Amiodarone [Cordarone] 200 mg PO BID #60 tab Furosemide [Lasix] 60 mg PO DAILY #120 tab Continue Sacubitril/Valsartan [Entresto 24 mg-26 mg Tablet] 1 tab PO BID Potassium Chloride [Klor-Con 10] 100 meq PO DAILY Omeprazole 40 mg PO BID Discontinued Bumetanide [BUMEX] 2 mg PO DAILY PRN PRN Reason: EDEMA WEIGHT GAIN 3+ LBS Discharge Medication List Omeprazole 40 mg PO BID 05/01/21 [History] Potassium Chloride [Klor-Con 10] 100 meq PO DAILY 05/01/21 [History] Sacubitril/Valsartan [Entresto 24 mg-26 mg Tablet] 1 tab PO BID 05/01/21 [History] Acetaminophen Tab [Tylenol] 650 mg PO Q4HR PRN tab 05/08/21 [Rx] Amiodarone [Cordarone] 200 mg PO BID #60 tab 05/08/21 [Rx] Furosemide [Lasix] 40 mg PO 1600 #30 tab 05/08/21 [Rx] Furosemide [Lasix] 60 mg PO DAILY #120 tab 05/08/21 [Rx] Nitroglycerin Sl Tabs [Nitrostat] 0.4 mg SUBLINGUAL Q5M PRN #30 tab 05/08/21 [Rx] Spironolactone [Aldactone] 25 mg PO DAILY #30 tab 05/08/21 [Rx] carvediloL [Coreg] 1.563 mg PO BID-W/MEALS #60 dose 0810/21 [Rx] Follow up Appointment(s)/Referral(s): [facility] [REFERRING] - 1-2 Days (Pt. educated to make own follow- up appointments.) Patient Instructions/Handouts: Heart Attack (DC), Heart Failure (DC), Coronary Artery Disease (DC), Chest Pain (DC), Heart Healthy Diet (DC) Activity/Diet/Wound Care/Special Instructions: Activity Limited until follow-up Follow-up with primary care provider to obtain referral for home care in the outpatient setting or establish with another primary care provider in [place] to initiate Homecare Follow-up with Dr. Hernandez cardiology out [place] [facility] upon discharge Continue prescribed medications and bring discharge paperwork with you to follow-up appointments to discuss new medications that have been initiated Continue heart healthy diet Discharge Disposition: HOME WITH HOME HEALTH SERVICES
== END 2021-05-08 13:44 | disposition home health service (06) | DRG 308 ==
LOC: EC 17:54 → 2SICU 19:36
PROVIDERS: ADMIT Internal Medicine; ATTEND Internal Medicine
PROC: 5A1935Z Respiratory Ventilation, Less than 24 Consecutive Hours (ICD-10-PCS; principal; 2021-05-01)
PROC: 0BH17EZ Insertion of Endotracheal Airway into Trachea, Via Natural or Artificial Opening (ICD-10-PCS; 2021-05-01)
DX: I49.01 Ventricular fibrillation (principal); J96.01 Acute respiratory failure with hypoxia; I50.23 Acute on chronic systolic (congestive) heart failure; A41.9 Sepsis, unspecified organism; E87.2 Acidosis; I46.2 Cardiac arrest due to underlying cardiac condition; Z95.810 Presence of automatic (implantable) cardiac defibrillator; I48.20 Chronic atrial fibrillation, unspecified; I25.2 Old myocardial infarction; Z66 Do not resuscitate; I42.8 Other cardiomyopathies; I45.10 Unspecified right bundle-branch block; I47.2 Ventricular tachycardia; Z79.899 Other long term (current) drug therapy
CPT/HCPCS: 36415; 36600; 71045; 71275; 80048; 80053; 81001; 81003; 82803; 82805; 83605; 83735; 84100; 84145; 84484; 85025; 85610; 85730; 93005; 93306; 96365; 96375; 99291

== ENCOUNTER → 2025-02-08 | Outpatient (CLI) | payer OTHER ==
[2025-02-08 16:06] LABS: NT-Pro-B-Type Natriuretic Pept 52 pg/mL (0-125)
[2025-02-08 16:11] LABS: BUN/Creat Ratio 10.38 Ratio (12.00-20.00); Blood Urea Nitrogen 8.3 mg/dL (9.0-27.0); Chloride 105 mmol/L (96-109); Chol/HDL Ratio 3.66 Ratio; Glucose 88 mg/dL (70-110); Potassium 4.6 mmol/L (3.5-5.5); Sodium 141 mmol/L (135-145)
[2025-02-08 16:12] LABS: ALT 26 U/L (8-44); AST 28 U/L (13-35); Albumin 4.7 g/dL (3.8-4.9); Albumin/Globulin Ratio 1.81 Ratio (1.60-3.17); Alkaline Phosphatase 124 U/L (41-126); Calcium 10.3 mg/dL (8.7-10.3); Carbon Dioxide 21.4 mmol/L (21.6-31.8); Globulin 2.6 g/dL (1.6-3.3); Total Bilirubin 0.6 mg/dL (0.3-1.2); Total Protein 7.3 g/dL (6.2-8.2)
== END | disposition home or self-care (01) ==
LOC: LABWHC1 12:12
PROVIDERS: ATTEND Internal Medicine Interventional Cardiology
DX: I42.0 Dilated cardiomyopathy (principal); E78.2 Mixed hyperlipidemia
CPT/HCPCS: 36415; 80053; 80061; 83880; 84443